=== PATIENT | male | born 1955 | race Hispanic/Latino ===

== ENCOUNTER 2016-12-15 12:08 | Emergency (ER) | payer OTHER ==
[2016-12-15 12:26] VITALS: BP 170/90; PULSE 94; RESP 18; TEMP 98.9; O2SAT 98
--- NOTE | 2016-12-15 13:51 | C.PDOC ---
History Of Present Illness 61 yr old male presents to the ER requesting detox from heroin. Patient reports he uses 5-10 bags a day and occasionally drink. Patient reports last use for both was earlier this morning. Patient denies fever, chest pain, SOB, nausea, vomiting, abdominal pain, weakness or numbness. Denies suicidal ideation or homicidal ideation. Time Seen by Provider: 12/15/16 13:07 Chief Complaint (Nursing): Substance Abuse History Per: Patient History/Exam Limitations: no limitations Onset/Duration Of Symptoms: Days Current Symptoms Are (Timing): Still Present Modifying Factor(s): Alcohol Past Medical History Reviewed: Historical Data, Nursing Documentation, Vital Signs Vital Signs: Last Vital Signs Temp 98.9 F 12/15/16 12:24 Pulse 94 H 12/15/16 12:24 Resp 18 12/15/16 12:24 BP 170/90 H 12/15/16 12:24 Pulse Ox 98 12/15/16 13:53 - Medical History PMH: Emphysema, HTN, Osteoporosis Family History: States: No Known Family Hx - Social History Hx Alcohol Use: Yes Hx Substance Use: Yes - Immunization History Hx Tetanus Toxoid Vaccination: No Hx Influenza Vaccination: No Hx Pneumococcal Vaccination: No Review Of Systems Except As Marked, All Systems Reviewed And Found Negative. Constitutional: Negative for: Fever Cardiovascular: Negative for: Chest Pain Respiratory: Negative for: Shortness of Breath Gastrointestinal: Negative for: Nausea, Vomiting, Abdominal Pain Neurological: Negative for: Weakness, Numbness Psych: Negative for: Suicidal ideation Physical Exam - Physical Exam Appears: Non-toxic, No Acute Distress Skin: Warm, Dry, No Rash Head: Atraumatic, Normacephalic Oral Mucosa: Moist Chest: Symmetrical, No Tenderness Cardiovascular: Rhythm Regular, No Murmur Respiratory: Normal Breath Sounds, No Rales, No Rhonchi, No Stridor, No Wheezing Extremity: Normal ROM, No Swelling Neurological/Psych: Oriented x3, Normal Speech, Normal Motor ED Course And Treatment O2 Sat by Pulse Oximetry: 98 (RA) Pulse Ox Interpretation: Normal Progress Note: Patient was informed there are no detox beds available at the moment. Patient was seen by crisis pressure steamer tender. Disposition - Disposition Referrals: [facility] [Outside] [facility] [Outside] Disposition: HOME/ ROUTINE Disposition Time: 13:10 Condition: GOOD Additional Instructions: Thank you for letting us take care of you today. Your provider was Dr. Thompson. The emergency medical care you received today was directed at your acute symptoms. If you were prescribed any medication, please fill it and take as directed. It may take several days for your symptoms to resolve. Return to the Emergency Department if your symptoms worsen, do not improve, or if you have any other problems. Please contact your doctor or call one of the physicians/clinics you have been referred to that are listed on the Patient Visit Information form that is included in your discharge packet. Bring any paperwork you were given at discharge with you along with any medications you are taking to your follow up visit. Our treatment cannot replace ongoing medical care by a primary care provider (PCP) outside of the emergency department. Thank you for allowing the [facility] team to be part of your care today. Follow up with the clinic in 2-3 days for outpatient care. Call the hospital for detox availability. Instructions: Narcotic Abuse (ED) Forms: [employer] (Lao) - Clinical Impression Clinical Impression: Drug abuse, Drug dependence - Scribe Statement The provider has reviewed the documentation as recorded by the Jose Pinto Provider Attestation: All medical record entries made by the Jose were at my direction and personally dictated by me. I have reviewed the chart and agree that the record accurately reflects my personal performance of the history, physical exam, medical decision making, and the department course for this patient. I have also personally directed, reviewed, and agree with the discharge instructions and disposition.
== END 2016-12-15 13:52 | disposition home or self-care (01) ==
LOC: C.ER 12:08
DX: F11.20 Opioid dependence, uncomplicated (principal)

== ENCOUNTER 2017-02-13 09:12 | Inpatient (IN) | payer MEDICAID, OTHER ==
[2017-02-13] MEDS ORDERED: Sodium Chloride 0.9% 1,000 ML IV ONE (09:21)
[2017-02-13] MEDS ORDERED: Sodium Chloride 0.9% 1,000 ML ONE (09:57)
--- NOTE | 2017-02-13 10:18 | C.PDOC ---
History Of Present Illness 61 year old male brought to ED by ambulance after being found trembling on the side walk and appearing to be altered/?under influence of drugs. Pt was restrained for being uncooperative and was given Ketamine IM in field. He was agitated and aggressive upon arrival to ED, and was placed on 4 point restraints. Time Seen by Provider: 02/13/17 09:20 Chief Complaint (Nursing): Substance Abuse History Per: Patient History/Exam Limitations: no limitations Onset/Duration Of Symptoms: Unknown Current Symptoms Are (Timing): Still Present Additional History Per: EMS Past Medical History Reviewed: Historical Data, Nursing Documentation, Vital Signs Vital Signs: Last Vital Signs Temp 98.3 F 02/14/17 23:33 Pulse 85 02/14/17 23:33 Resp 18 02/14/17 23:33 BP 131/92 H 02/14/17 23:33 Pulse Ox 98 02/15/17 00:11 - Medical History PMH: Emphysema, HTN, Osteoporosis Family History: States: No Known Family Hx - Social History Hx Alcohol Use: Yes Hx Substance Use: Yes - Immunization History Hx Tetanus Toxoid Vaccination: No Hx Influenza Vaccination: No Hx Pneumococcal Vaccination: No Review Of Systems Review Of Systems: ROS cannot be obtained secondary to pt's inabilty to answer questions. Physical Exam - Physical Exam Appears: Non-toxic, Agitated (aggressive, angry, pt is kicking and trying to hit staff) Skin: Warm, Dry Head: Atraumatic, Normacephalic Eye(s): bilateral: EOMI, Abnormal Pupil (pupils dilated 6-7mm but reactive) Oral Mucosa: Moist Neck: Normal, Normal ROM, No Midline Cervical Tenderness, No Paracervical Tenderness, No Step Off Deformity, Supple Cardiovascular: Rhythm Regular Respiratory: Normal Breath Sounds, No Rales, No Rhonchi, No Wheezing Gastrointestinal/Abdominal: Normal Exam, Bowel Sounds, Soft, No Tenderness Extremity: Normal ROM, No Pedal Edema, No Calf Tenderness Extremity: Bilateral: Atraumatic, Normal Color And Temperature, Normal ROM Pulses: Left Dorsalis Pedis: Normal, Right Dorsalis Pedis: Normal Neurological/Psych: Other (awake, alert, trembling but without tonic clonic activity/seizure, moving all 4 extremities spontaneously) ED Course And Treatment - Laboratory Results Result Diagrams: 02/13/17 10:09 02/13/17 10:09 O2 Sat by Pulse Oximetry: 98 (RA) Pulse Ox Interpretation: Normal - CT Scan/US Head CT Other Rad Studies (CT/US): Read By Radiologist, Radiology Report Reviewed CT/US Interpretation: Accession No. : [id number]. Patient Name / ID : DOV PELLETIER / [id number]. Exam Date : 02/13/2017 10:48:11 ( Approved ). Study Comment : Sex / Age : M / [id number]. Creator : Quentin Medina. Dictator : Epitaxial Reactor Technician : Adult Probation Officer : Malik López MD. Approver2 : Report Date : 10:58:57. My Comment : . PROCEDURE: CT HEAD WITHOUT CONTRAST. HISTORY: ams, agitation. COMPARISON: None available. TECHNIQUE: Axial computed tomography images were obtained through the head/brain without intravenous contrast. Radiation dose: Total exam DLP = 950.56 mGy-cm. This CT exam was performed using one or more of the following dose reduction techniques: Automated exposure control, adjustment of the mA and/or kV according to patient size, and/or use of iterative reconstruction technique. FINDINGS: HEMORRHAGE: No intracranial hemorrhage. BRAIN: Few bilateral basal nuclei chronic appearing lacunar type infarcts. Mild -moderate generalized volume loss. Minor 8 vascular calcifications. VENTRICLES: No obstructive hydrocephalus. CALVARIUM: No acute calvarial fractures. PARANASAL SINUSES: Minimal mucosal thickening seen within all the paranasal sinuses. MASTOID AIR CELLS: Unremarkable as visualized. No inflammatory changes. OTHER FINDINGS: None. IMPRESSION: No acute intracranial hemorrhage. Few small chronic bilateral basal nuclei lacunar type infarcts. Mild -moderate generalized volume loss. Progress Note: Patient has not has witnessed seizure as per EMS, and no seizures in ED. 911 call was for "seizure", but they did not witness any such event, just patient being angry, agitated and trembling. CT head, Blood work, UA, UDS ordered and reviewed. Patient given IV NS bolus, IM Ativan and IM haldol for agitation. 5:45pm- Spoke with crisis, detox bed currently available. Patient medically cleared. He is resting comfortably and calm now. 6:10pm- Patient accepted for detox admission by Dr. Onofre. Disposition Counseled Patient/Family Regarding: Studies Performed, Diagnosis, Need For Followup - Disposition Disposition: HOME/ ROUTINE Disposition Time: 17:30 Condition: STABLE - Clinical Impression Clinical Impression: Substance abuse, Agitation - Scribe Statement The provider has reviewed the documentation as recorded by the Scribe Addie Atwood All medical record entries made by the Adelaideibe were at my direction and personally dictated by me. I have reviewed the chart and agree that the record accurately reflects my personal performance of the history, physical exam, medical decision making, and the department course for this patient. I have also personally directed, reviewed, and agree with the discharge instructions and disposition. Decision To Admit - Pt Status Changed To: Hospital Disposition Of: Inpatient - Admit Certification Admit to Inpatient:: After my assessment, the patient will require hospitalization for at least two midnights. This is because of the severity of symptoms shown, intensity of services needed, and/or the medical risk in this patient being treated as an outpatient. - InPatient: Physician Admission Certification: I certify that this patient requires 2 or more midnights of care for the following reason:: see notes - . Bed Request Type: Detox Admitting Physician: Amairani Onofre Patient Diagnosis: Substance abuse, Agitation
[2017-02-13 10:19] LABS: BASO % 0.5 % (0.0-2.0); EOS % 0.4 % (0.0-4.0); HEMATOCRIT 37.1 % (35.0-51.0); LYMPH # 0.6 K/uL (1.0-4.3); LYMPH % 7.6 % (20.0-40.0); MEAN CORPUSCULAR HEMOGLOBIN 33.7 pg (27.0-31.0); MEAN CORPUSCULAR HGB CONC 33.7 g/dL (33.0-37.0); MONO # 0.4 K/uL (0.0-0.8); MONO % 5.6 % (0.0-10.0); PLATELET COUNT 228 K/uL (130-400); RED CELL DISTRIBUTION WIDTH 13.7 % (11.5-14.5); WHITE BLOOD COUNT 7.5 K/uL (4.8-10.8)
[2017-02-13 10:26] LABS: CHLORIDE 99 mmol/L (98-107); POTASSIUM 3.7 mmol/L (3.6-5.2); SODIUM 134 mmol/L (132-148)
[2017-02-13 10:28] LABS: AST/SGOT 36 U/L (17-59); BILIRUBIN,TOTAL 0.6 mg/dL (0.2-1.3); CARBON DIOXIDE 26 mmol/L (22-30); GFR AFRICAN-AMERICAN > 60
[2017-02-13 10:29] LABS: ALB/GLOB RATIO 1.8 (1.0-2.1); ALKALINE PHOSPHATASE 47 U/L (38-126); ALT/SGPT 41 U/L (21-72); BLOOD UREA NITROGEN 14 mg/dL (9-20); GLUCOSE,RANDOM 151 mg/dL (75-110)
[2017-02-13 10:30] LABS: ALCOHOL SERUM < 10 mg/dl (0-10)
[2017-02-13 10:43] LABS: RBC URINE 4 /hpf (0-3); URINE BILIRUBIN NEGATIVE (NEGATIVE); URINE BLOOD NEGATIVE (NEGATIVE); URINE COLOR Yellow (YELLOW); URINE GLUCOSE (UA) NORMAL (Normal); URINE KETONE NEGATIVE (NEGATIVE); URINE LEUKOCYTE ESTERASE NEG Leu/uL (Negative); URINE PROTEIN NEGATIVE (NEGATIVE); WBC URINE 1 /hpf (0-5)
[2017-02-13 11:09] LABS: NEUTROPHIL 86 % (50-75); TOTAL CELLS COUNTED 100
--- NOTE | 2017-02-13 11:17 | CT ---
PROCEDURE: CT HEAD WITHOUT CONTRAST. HISTORY: ams, agitation COMPARISON: None available. TECHNIQUE: Axial computed tomography images were obtained through the head/brain without intravenous contrast. Radiation dose: Total exam DLP = 950.56 mGy-cm. This CT exam was performed using one or more of the following dose reduction techniques: Automated exposure control, adjustment of the mA and/or kV according to patient size, and/or use of iterative reconstruction technique. FINDINGS: HEMORRHAGE: No intracranial hemorrhage. BRAIN: Few bilateral basal nuclei chronic appearing lacunar type infarcts Mild -moderate generalized volume loss. Minor 8 vascular calcifications VENTRICLES: No obstructive hydrocephalus. CALVARIUM: No acute calvarial fractures. PARANASAL SINUSES: Minimal mucosal thickening seen within all the paranasal sinuses. MASTOID AIR CELLS: Unremarkable as visualized. No inflammatory changes. OTHER FINDINGS: None. IMPRESSION: No acute intracranial hemorrhage. Few small chronic bilateral basal nuclei lacunar type infarcts. Mild -moderate generalized volume loss.
--- NOTE | 2017-02-13 21:36 | PCM.BM ---
<Fiordaliza Palomo - Last Filed: 02/13/17 21:34> Treatment Plan Problems - Problems identified on initial assessmt Potential for opioid withdrawal Date Initiated: 02/13/17 Time Initiated: 21:35 Assessment reference: NA Status: Active Priority: 1 Treatment assets and liabiliti Patient Assests: ADL independent, negotiates basic needs, cognitively intact Patient Liabilities: poor support system, substance abuse, other (homelessness) - Milieu Protocol Maintain good personal hygiene: daily Encourage regular showers, daily Remind patient to perform daily oral care, daily Assist patient to perform ADL's Conduct patient checks and document Observation sheet: Q15 minutes Maintain personal safety: every shift Educate patient to report safety concerns to staff, every shift Monitor environment for contraband/sharps Medication safety: Monitor for expected outcome, potential side effects: every shift, Assess barriers to learning: every shift, Assess readiness for medication education: every shift <Martita Amos - Last Filed: 02/15/17 12:46> Family Contact Family involvement: Famliy/SO not involved Family contact: Patient declines to allow family contact at present - Goals for Treatment Patient goals for treatment: Complete detox and apply to [facility]. Discharge/Continuing Care - Education Needs Education Needs: Patient Medication, Patient Diagnosis/Disease Process, Patient Coping Skills, Patient Anger Management skills, Patient Placement options, Patient Community resources - Discharge Discharge Criteria: Ability to care for self, No longer exhibiting s/s of withdrawal, Reduction of target symptoms Discharge to:: Substance Abuse Rehab - Treatment Team Participation Patient/Family/SO Statement: 02/15/17 12:47 "I'm homeless so I need some place to go. I went [facility] the [facility] in the city--I'd like to try them again..." Discussed with Family/SO: No Was Patient/Family/SO present at Treatment Team Meeting: Yes <Nomi Mcgarry - Last Filed: 02/15/17 21:53> - Diagnosis (1) Opioid use disorder, severe, dependence Status: Acute Interventions: 02/15/17 21:53 * Assess 7x/week regarding severity of withdrawal * Educate regarding risks, benefits, side effects and alternatives of medications * Use Motivational Interviewing for abstinence * Use CBT for relapse prevention * Medication management for withdrawal symptoms * Encourage medication assisted treatment *
[2017-02-14] MEDS ORDERED: Buprenorphine Hydrochloride 2 mg SL ONE ×3 (09:30→13:45)
[2017-02-14] MEDS: Multiple Vitamins Tab PO SCH (11:14)
[2017-02-14] MEDS: Bacitracin 500 Units/gm Oint Foilpak UD TOP SCH (11:14)
--- NOTE | 2017-02-14 15:41 | PCM.PSYCH ---
Initial Psychiatric Evaluation - Initial Psychiatric Evaluation Type of Admission: Voluntary Legal Status: Capacity Chief Complaint (in patient's own words): I have etoh and heroin withdrawal symptoms. History of Present Illness and Precipitating Events: Patient is a 61 year old male was admitted to detox unit for heroin and etoh detox. Patient was brought in by EMS after he was found lying on the sidewalk shaking and appearing to have seizures. Patient was not responding to verbal stimuli. The patient stated that he used 6 bags of Heroin this morning intranasally. He reported that he drinks 4 -6 cans of beer with 2 shot of vodka. His last drink was yesterday. He stated that he had a blackout and "passed out." Patient states that he has been using Heroin since the age of 16. Patient states that he has a history of withdrawals and experiences hot and cold tremors along wit tremors and diarrhea. Currently he had multiple bouts of diarrhea and he soiled his clothes including his linen. Patient indicates that he was in Detox at [facility] in 2013 and was also in detox with [facility] in 2016. Patient stated that he relapsed within a week of attending both treatment centers and has had no periods of sobriety. He reported that he 5-6 cigarette daily. Patient denies any legal issues and is not presently employed. Patient denies any hx of mental illness or substance abuse in the family. Patient also denies any psychiatric history and denies any suicidal ideation or any homicidal ideation. The patient also denies any A/V hallucinations. Social History: Homeless, unemployed, Patient stated that he was residing at the [facility] but indicates that he is no longer a resident there. Patient did indicate that he used to work at an [employer] shop ([employer] ) and is originally from [place]. Patient indicates that his family is not involved with him and claims to have a sister residing in [facility]. Medical History: Patient indicates that he has hypertension and COPD but does not followup with a primary doctor and is not on any prescription medication. Current Medications: Active Medications Generic Name Dose Route Start Last Admin Trade Name Freq PRN Reason Stop Dose Admin Bacitracin 1 ea 02/14/17 10:00 02/14/17 11:14 Bacitracin TOP 02/17/17 10:01 1 ea DAILY ABIGAIL Administration Clonidine HCl 0.1 mg 02/13/17 19:18 Catapres PO Q8 PRN COWS Score More or Equal to 5 Dicyclomine HCl 10 mg 02/13/17 19:22 Bentyl PO QID PRN stomach cramps Folic Acid 1 mg 02/14/17 10:00 02/14/17 11:14 Folic Acid PO 1 mg DAILY ABIGAIL Administration Ibuprofen 400 mg 02/13/17 19:22 Motrin Tab PO Q6H PRN Pain, moderate (4-7) Loperamide HCl 2 mg 02/13/17 19:18 02/14/17 13:32 Imodium PO 2 mg Q8 PRN Administration Diarrhea Lorazepam 2 mg 02/13/17 19:30 02/14/17 11:20 Ativan PO 02/17/17 19:29 2 mg Q4H ABIGAIL Administration Taper Multivitamins 1 tab 02/14/17 10:00 02/14/17 11:14 Hexavitamin PO 1 tab DAILY ABIGAIL Administration Ondansetron HCl 4 mg 02/13/17 19:18 Zofran Tab PO Q8 PRN Nausea/Vomiting Thiamine HCl 100 mg 02/14/17 10:00 02/14/17 11:14 Vitamin B1 Tab PO 100 mg DAILY ABIGAIL Administration Trazodone HCl 50 mg 02/13/17 19:18 Desyrel PO HS PRN Insomnia Past Psychiatric History - Past Psychiatric History Prior Psychiatric Treatment: Multiple detox in past. Please see HPI At [facility]: [facility] Nature of Treatment: detox History of Abuse: denied History of ETOH/Drug Use: Please see HPI History of Family Illness: denied Pertinent Medical Hx (Current Medical&Sleep Prob, Allergies): Allergies Allergy/AdvReac Type Severity Reaction Status Date / Time No Known Allergies Allergy Verified 02/13/17 09:49 No Known Home Med 12/15/16 COPD AND HTN Review of Systems - Review of Systems All systems: reviewed and no additional remarkable complaints except Review of Systems: Has body aches, diarrhea, nasal congestion, abrasion of Right conde, and both arm , yawning, goose bump, flushing of skin - Constitutional Constitutional: Chills, Sweats, Malaise - EENT Eyes: Itchy Eyes, Pain Nose/Mouth/Throat: Nasal Congestion Mental Status Examination - Personal Presentation Personal Presentation: Looks stated age, Dressed appropriate to season Additional comments: He appeared disheveled, cac5-6 cigarette cachectic, drowsy, yawning, - Affect Affect: Constricted - Motor Activity Motor Activity: Psychomotor Retardation - Reliability in Providing Information Reliability in Providing Information: Fair - Speech Speech: Coherent - Formal Thought Process Formal Thought Process: No Impairment - Hallucinations/Delusions Delusions: Other (denied) - Obsessions/Compulsions Obsessions: No Compulsions: No - Cognitive Functions Orientation: Person, Place, Situation Sensorium: Drowsy Attention/Concentration: Attentive Abstract Thinking: [place] Judgement: Intact, as evidence by: Good judgement, Intact, as evidence by: Insight regarding need for hospitalization Memory: Recent intact, as evidence by: Ability to recall events of the day - Risk Risk: Withdrawal - Strength & Assets Inventory Strength & Assets Inventory: Cooperative - Limitations Limitations: Other (chronic drugs and etoh use problem) DSM 5 DX - DSM 5 DSM 5 Diagnosis: Opioid use d/o, dependence, severe, with withdrawal symptoms Alcohol use disorder with alcohol, severe, dependence, with withdrawal symptoms , - Recommended/Plan of Treatment Treatment Recommendations and Plan of Treatment: labs reviewed ativan taper for etoh addiction Subutex taper for opioid addiction Gabapentin for augmentation Vitamins, thiamine and Folic acid Monitor vitals Attend groups and activities NC for abstinence and CBT for relapse prevention Support and psychoeducation Consider and encourage MAT Continue Bacitracin for skin abrasions. Continue PRN meds for diarrhea, HTN, anxiety. Time Spend 35 minutes Projected ELOS: 5 days Prognosis: good with medication compliance Discharge Plan and Discharge Criteria: Recommend inpatient rehab for opioid and etoh use d/o AA meeting after discharge Pt will be d/c after stabilization on meds - Smoking Cessation Smoking Cessation Initiated: No
[2017-02-15] MEDS: Buprenorphine Hydrochloride 2 mg SL SCH (10:07)
[2017-02-15] MEDS: Multiple Vitamins Tab PO SCH (10:07)
[2017-02-15] MEDS: Bacitracin 500 Units/gm Oint Foilpak UD TOP SCH (10:08)
--- NOTE | 2017-02-15 12:52 | CARD ---
APPROVED REPORT EKG Measurement Heart [id number] <Conclusion> Sinus tachycardia Right atrial enlargement Left axis deviation Pulmonary disease pattern Abnormal ECG
--- NOTE | 2017-02-15 13:37 | PCM.PYCHPN ---
Psychiatric Progress Note - Psychiatric Progress Note Patient seen today, length of contact: 7 min Patient Chief Complaint: "OK I think" Problems Identified/Issues Discussed: The pt is seen, chart reviewed, case discussed with staff. The pt is compliant with medications and reports no side-effects. Symptoms are improving but needs more time to stabilize. After care discussed, support and psychoeducation given. Medication Change: Yes (detox changes daily) Medical Record Reviewed: Yes Mental Status Examination - Cognitive Function Orientation: Person, Place, Situation Memory: Intact Attention: WNL Concentration: WNL Association: WNL Fund of Knowledge: WNL - Mood Mood: Anxious - Affect Affect: Constricted - Speech Speech: Appropriate - Formal Thought Process Formal Thought Process: No Impairment - Suicidal Ideation Suicidal Ideation: No - Homicidal Ideation Homicidal Ideation: No Goal/Treatment Plan - Goal/Treatment Plan Need for Continued Stay: Discharge may exacerbated symptoms, Severe functional impairment Progress Toward Problem(s) and Goals/Treatment Plan: Continue medications Support and psychoeducation daily Attend groups and activities daily After care planning by counselors
[2017-02-15] MEDS ORDERED: Buprenorphine Hydrochloride 2 mg SL ONE (14:33)
[2017-02-16] MEDS: Buprenorphine Hydrochloride 2 mg SL SCH (09:14)
[2017-02-16] MEDS: Bacitracin 500 Units/gm Oint Foilpak UD TOP SCH (09:14)
[2017-02-16] MEDS: Multiple Vitamins Tab PO SCH (09:14)
--- NOTE | 2017-02-16 14:24 | PCM.PYCHPN ---
Psychiatric Progress Note - Psychiatric Progress Note Patient seen today, length of contact: 17 min Patient Chief Complaint: "I feel a little better" Problems Identified/Issues Discussed: The pt is seen, chart reviewed, case discussed with staff. The pt is compliant with medications and reports no side-effects. Symptoms are improving but needs more time to stabilize. After care discussed, support and psychoeducation given back hurts him slightly today. Medication Change: Yes Medical Record Reviewed: Yes Mental Status Examination - Cognitive Function Orientation: Person, Place, Situation, Time Memory: Intact Attention: WNL Concentration: WNL Association: WNL Fund of Knowledge: WNL - Mood Mood: Anxious - Affect Affect: Constricted - Speech Speech: Appropriate - Formal Thought Process Formal Thought Process: No Impairment - Suicidal Ideation Suicidal Ideation: No - Homicidal Ideation Homicidal Ideation: No Goal/Treatment Plan - Goal/Treatment Plan Need for Continued Stay: Discharge may exacerbated symptoms, Severe functional impairment Progress Toward Problem(s) and Goals/Treatment Plan: Continue medications Support and psychoeducation daily Attend groups and activities daily After care planning by counselors at [facility] where he was 25 years ago and remained sober 10 years after Estimated Date of D/C: 02/18/17
--- NOTE | 2017-02-16 17:23 | RAD ---
HISTORY: Clearance for rehab COMPARISON: None available. TECHNIQUE: Chest PA and lateral FINDINGS: LUNGS: Hyperinflation may be seen in the setting of COPD. No focal consolidation. Please note that chest x-ray has limited sensitivity for the detection of pulmonary masses. PLEURA: No significant pleural effusion identified. No definite pneumothorax . CARDIOVASCULAR: The cardiomediastinal silhouette appears within normal limits of size. OSSEOUS STRUCTURES: No acute osseous abnormality identified. VISUALIZED UPPER ABDOMEN: Unremarkable. OTHER FINDINGS: None. IMPRESSION: Hyperinflation may be seen in the setting of COPD.
[2017-02-16] MEDS ORDERED: Buprenorphine Hydrochloride 2 mg SL ONE (18:00)
[2017-02-17] MEDS: Multiple Vitamins Tab PO SCH (09:09)
[2017-02-17] MEDS: Bacitracin 500 Units/gm Oint Foilpak UD TOP SCH (09:10)
[2017-02-17] MEDS: Buprenorphine Hydrochloride 2 mg SL SCH (09:11)
--- NOTE | 2017-02-17 14:21 | PCM.PYCHPN ---
Psychiatric Progress Note - Psychiatric Progress Note Patient seen today, length of contact: 16 min Patient Chief Complaint: "I feel okay" Problems Identified/Issues Discussed: The pt is seen, chart reviewed, case discussed with staff. Support given, CBT and GA used briefly No new symptoms reported, improving slowly and needs more time No SEs from medications and medication changes, risks discussed. After care discussed potentially at [facility] Medication Change: Yes (subutex 6mg+2mg) Medical Record Reviewed: Yes Mental Status Examination - Cognitive Function Orientation: Person, Place, Situation, Time Memory: Intact Attention: WNL Concentration: WNL Association: WN Fund of Knowledge: WN - Mood Mood: Depressed, Anxious - Affect Affect: Constricted - Speech Speech: Appropriate - Formal Thought Process Formal Thought Process: No Impairment - Suicidal Ideation Suicidal Ideation: No - Homicidal Ideation Homicidal Ideation: No Goal/Treatment Plan - Goal/Treatment Plan Need for Continued Stay: Discharge may exacerbated symptoms, Severe functional impairment Progress Toward Problem(s) and Goals/Treatment Plan: Continue medications Support and psychoeducation daily Attend groups and activities daily After care planning by MANUEL hopefully at [facility] Estimated Date of D/C: 02/18/17
[2017-02-17] MEDS ORDERED: Buprenorphine Hydrochloride 2 mg SL ONE (17:00)
[2017-02-18] MEDS: Multiple Vitamins Tab PO SCH (09:11)
[2017-02-18] MEDS: Buprenorphine Hydrochloride 2 mg SL SCH (09:12)
--- NOTE | 2017-02-18 13:50 | PCM.PYCHPN ---
Psychiatric Progress Note - Psychiatric Progress Note Patient seen today, length of contact: 17 min Patient Chief Complaint: "I feel so-so" Problems Identified/Issues Discussed: The pt is seen, chart reviewed, case discussed with staff. Support given, CBT and SD used briefly No new symptoms reported, improving slowly and needs more time No SEs from medications, risks discussed. After care discussed potentially at [facility] only slept 4-5 hours last night Medication Change: Yes (subutex 2mg+2mg) Medical Record Reviewed: Yes Mental Status Examination - Cognitive Function Orientation: Person, Place, Situation, Time Memory: Intact Attention: WNL Concentration: WNL Association: WN Fund of Knowledge: WNL - Mood Mood: Depressed - Affect Affect: Constricted - Speech Speech: Appropriate - Formal Thought Process Formal Thought Process: No Impairment - Suicidal Ideation Suicidal Ideation: No - Homicidal Ideation Homicidal Ideation: No Goal/Treatment Plan - Goal/Treatment Plan Need for Continued Stay: Discharge may exacerbated symptoms, Severe functional impairment Progress Toward Problem(s) and Goals/Treatment Plan: Continue medications Support and psychoeducation daily Attend groups and activities daily After care planning by MANUEL hopefully discharge tomorrow Estimated Date of D/C: 02/19/17
[2017-02-18] MEDS ORDERED: Buprenorphine Hydrochloride 2 mg SL ONE (18:00)
--- NOTE | 2017-02-19 08:44 | PCM.PYCHDC ---
Mental Status Examination - Mental Status Examination Orientation: Person Memory: Intact Mood: Neutral Affect: Broad Speech: Appropriate Attention: WNL Concentration: WNL Association: WNL Fund of Knowledge: WNL Formal Thought Process: No Impairment Suicidal Ideation: No Current Homicidal Ideation?: No Discharge Summary - Discharge Note Reason for Hospitalization: heroin detox alcohol detox Psychiatric History (includes Medical, Family, Personal Hx): Patient denies any hx of mental illness or substance abuse in the family. Consultations:: List each consultation separately and include: 1. Reason for request. 2. Findings. 3. Follow-up Summary of Hospital Course include:: 1. Description of specific treatment plan utilized for patients during their course of treatmen. 2. Summarize the time- course for resolution of acute symptoms and/or regressed behaviors. 3. Describe issues identified and worked on during hospitalization. 4. Describe medication utilized. 5. Describe medical problems identified and treated. 6. Reassessment of suicide risk Summary of Hospital Course: the pt. is seen, chart reviewed and case discussed On admission: He is a 61 year old male, single no children. Patient is unemployed and homeless. He reported that he drinks 4 -6 cans of beer with 2 shot of vodka. His last drink was day prior to admission Patient states that he has been using Heroin since the age of 16. Last used 6 bags of Heroin day of admission. He has previously been treated at [facility] for detox in 2014 and at [email or web address] for detox in 2016 Past psych history: denies Medical history: Hypertension and COPD Hospital course: subutex taper The pt was admitted and started on treatment with psychotherapy, support, psychoeducation and medications. DE and CBT used. The pt attended groups and activities, as well as milieu therapy. All the risks and benefits of medications are discussed and the patient understood and agreed. The pt improved with the treatments provided. After care discussed with the patient and he will first go to [facility] and then eventually [email or web address] in . he did not want to go directly as he has to get his check and pay some people. He is not happythat takes $ from him. - Final Diagnosis (DSM 5) Condition upon Discharge: STABLE DSM 5: Opioid use d/o, dependence, severe, with withdrawal symptoms Alcohol use disorder with alcohol, severe, dependence, with withdrawal symptoms , Disposition: HOME/ ROUTINE Follow-up Treatment Plan: Continue below medications after discharge. Follow after care plan as discussed. Home first ([facility] and then [facility]) Use relapse prevention skills Return to ER or call 911 if suicidal, homicidal or symptoms relapse. Stay away from stress, alcohol and drugs. See primary doctor regularly and get labs. Patient stated he was going home first to attend to personal matters Patient was advised on necessity for rehab and understood Patient was given a script for trazadone and for vitamins. Prescriptions/Medication Reconciliation: Multivitamins [Hexavitamin] 1 tab PO DAILY #30 tab traZODone [Desyrel] 100 mg PO HS PRN #30 tab PRN Reason: Insomnia - Smoking Cessation Smoking Cessation Medication prescribed: No - Antipsychotic Medications Pt discharged on 2 or more routine antipsychotic medications: No
[2017-02-19] MEDS ORDERED: Buprenorphine Hydrochloride 2 mg SL ONE (09:00)
[2017-02-19] MEDS: Multiple Vitamins Tab PO SCH (09:09)
[2017-02-19 09:34] VITALS: BP 140/83; PULSE 77; RESP 18; TEMP 98.3; O2SAT 98
== END 2017-02-19 10:30 | disposition home or self-care (01) | DRG 744 ==
LOC: C.ER 09:12 → C.7D 18:02
PROVIDERS: ADMIT Psychiatry & Neurology Psychiatry; ATTEND Psychiatry & Neurology Psychiatry
PROC: HZ56ZZZ Individual Psychotherapy for Substance Abuse Treatment, Psychoeducation (ICD-10-PCS; principal; 2017-02-13)
PROC: HZ2ZZZZ Detoxification Services for Substance Abuse Treatment (ICD-10-PCS; 2017-02-13)
PROC: HZ59ZZZ Individual Psychotherapy for Substance Abuse Treatment, Supportive (ICD-10-PCS; 2017-02-13)
PROC: HZ42ZZZ Group Counseling for Substance Abuse Treatment, Cognitive-Behavioral (ICD-10-PCS; 2017-02-13)
DX: F11.23 Opioid dependence with withdrawal (principal); R56.9 Unspecified convulsions; J44.9 Chronic obstructive pulmonary disease, unspecified; I10 Essential (primary) hypertension; F10.230 Alcohol dependence with withdrawal, uncomplicated; M81.0 Age-related osteoporosis without current pathological fracture; Z59.0 Homelessness; Z78.1 Physical restraint status; F17.210 Nicotine dependence, cigarettes, uncomplicated; R19.7 Diarrhea, unspecified

== ENCOUNTER 2017-10-22 16:30 | Emergency (ER) | payer MEDICAID, OTHER ==
--- NOTE | 2017-10-22 17:48 | RAD ---
PROCEDURE: Radiographs of the Lumbar Spine. HISTORY: fall yesterday while being intoxicated COMPARISON: No prior. FINDINGS: BONES: There is grade 1 anterolisthesis of L5 with respect to L4 and S1. Vertebral body heights are maintained. DISC SPACES: Disc space heights are preserved. OTHER FINDINGS: Atherosclerotic calcifications noted of the aorta. IMPRESSION: Grade 1 anterolisthesis of L5 as above.
--- NOTE | 2017-10-22 18:16 | C.PDOC ---
History Of Present Illness <Supriya Pablo - Last Filed: 10/22/17 18:42> <Clayton Rivera - Last Filed: 10/22/17 20:27> 62-year-old male, presents to the emergency department with complaints of public intoxication. Patient was found drunk and intoxicated, complaining of low back pain, states he fell yesterday while he was drunk, and admits to drinking everyday. (Supriya Pablo) History Per: Patient History/Exam Limitations: no limitations Current Symptoms Are (Timing): Still Present <Supriya Pablo - Last Filed: 10/22/17 18:42> <Clayton Rivera - Last Filed: 10/22/17 20:27> Time Seen by Provider: 10/22/17 16:53 Chief Complaint (Nursing): Substance Abuse Past Medical History Reviewed: Historical Data, Nursing Documentation, Vital Signs - Medical History PMH: Emphysema, HTN, Osteoporosis Family History: States: Unknown Family Hx - Social History Hx Alcohol Use: Yes Hx Substance Use: Yes - Immunization History Hx Tetanus Toxoid Vaccination: No Hx Influenza Vaccination: No Hx Pneumococcal Vaccination: No <Supriya Pablo - Last Filed: 10/22/17 18:42> Vital Signs: Last Vital Signs Temp 98.6 F 10/22/17 19:00 Pulse 75 10/22/17 19:00 Resp 16 10/22/17 19:00 BP 160/93 H 10/22/17 19:00 Pulse Ox 95 10/22/17 19:00 - [facility] Procedures DETOXIFICATION SERVICES FOR SUBSTANCE ABUSE TREATMENT (02/13/17) GROUP ASSISTANT PROFESSOR OF ART FOR SUBSTANCE ABUSE, COGNITIVE BEHAVIORAL (02/13/17) INDIV PSYCHOTHERAPY FOR SUBSTANCE ABUSE TREATMENT, SUPPORT (02/13/17) INDIV PSYCHOTHERAPY FOR SUBSTANCE ABUSE, PSYCHOEDUCATION (02/13/17) Review Of Systems Constitutional: Negative for: Fever, Chills Cardiovascular: Negative for: Chest Pain, Palpitations Respiratory: Negative for: Shortness of Breath Gastrointestinal: Negative for: Nausea, Vomiting Musculoskeletal: Positive for: Back Pain Neurological: Negative for: Headache, Dizziness <Supriya Pablo - Last Filed: 10/22/17 18:42> Physical Exam - Physical Exam Appears: Non-toxic, No Acute Distress, Other (intoxicated. ETOH on breath) Skin: Warm, Dry, No Rash Head: Other (Bruise to left side of face) Eye(s): bilateral: Normal Inspection Nose: Normal Oral Mucosa: Moist Lips: Normal Appearing Neck: Normal ROM Cardiovascular: Rhythm Regular, No Murmur Respiratory: Normal Breath Sounds, No Accessory Muscle Use Gastrointestinal/Abdominal: Soft, No Tenderness Back: Paraspinal Tenderness (diffuse) Extremity: Normal ROM, No Deformity, No Swelling Neurological/Psych: Other (Awake and alert) <Supriya Pablo - Last Filed: 10/22/17 18:42> ED Course And Treatment O2 Sat by Pulse Oximetry: 95 (RA) Pulse Ox Interpretation: Normal - Other Rad XR spine X-Ray: Viewed By Me, Read By Radiologist Interpretation: Accession No. : [id number]. Patient Name / ID : DOV PELLETIER / [id number]. Exam Date : 10/22/2017 17:20:01 ( Approved ). Study Comment : Sex / Age : M / [id number]. Creator : Cole Atwood MD. Dictator : Cole Atwood MD. Lockstitch Tunnel Elastic Operator : Lead Housekeeper : Cole Atwood MD. Approver2 : Report Date : 10/22/2017 17:47:30. My Comment : . PROCEDURE: Radiographs of the Lumbar Spine. HISTORY: fall yesterday while being intoxicated. COMPARISON: No prior. FINDINGS: BONES: There is grade 1 anterolisthesis of L5 with respect to L4 and S1. Vertebral body heights are maintained. DISC SPACES: Disc space heights are preserved. OTHER FINDINGS: Atherosclerotic calcifications noted of the aorta. IMPRESSION: Grade 1 anterolisthesis of L5 as above. Progress Note: LS spine xray and Head CT were ordered. Patient is being observed in ED for sobriety. At 7 pm case was signed out to . <Supriya Pablo - Last Filed: 10/22/17 18:42> Disposition - Disposition Disposition Time: 18:43 <Supriya Pablo - Last Filed: 10/22/17 18:42> Counseled Patient/Family Regarding: Diagnosis - Disposition Disposition Time: 20:27 - POA Present On Arrival: None <Clayton Rivera - Last Filed: 10/22/17 20:27> - Disposition Referrals: [facility] [Outside] Condition: STABLE Forms: [facility] (Citizen Of [place]) - Clinical Impression Clinical Impression: Alcohol intoxication, Status post fall - Scribe Statement The provider has reviewed the documentation as recorded by the Scribe ([place]) <Supriya Pablo - Last Filed: 10/22/17 18:42> <Clayton Rivera - Last Filed: 10/22/17 20:27> - Scribe Statement All medical record entries made by the Scribe were at my direction and personally dictated by me. I have reviewed the chart and agree that the record accurately reflects my personal performance of the history, physical exam, medical decision making, and the department course for this patient. I have also personally directed, reviewed, and agree with the discharge instructions and disposition. (Supriya Pablo) Physician Patient Turnover Patient Signed Over To: Clayton Rivera Handoff Comments: pending head CT, re-eval for sobriety and dispo <Supriya Pablo - Last Filed: 10/22/17 18:42>
--- NOTE | 2017-10-22 19:07 | CT ---
PROCEDURE: CT HEAD WITHOUT CONTRAST HISTORY: etoh, fall COMPARISON: CT head 02/13/2017 TECHNIQUE: Axial computed tomography images were obtained through the head/brain without intravenous contrast. Coronal, sagittal, and 3D reconstructions were also acquired. Radiation dose: Total exam DLP = 1003 mGy-cm. FINDINGS: HEMORRHAGE: No intracranial hemorrhage seen. BRAIN: No intraparenchymal mass identified. There is ventricular and sulcal prominence, consistent with age related volume loss. There is intracranial atherosclerosis. Small lacunar infarcts noted bilateral basal ganglia. VENTRICLES: See above CALVARIUM: Intact PARANASAL SINUSES: Small air-fluid level in the right maxillary sinus. Mild mucosal thickening in the bilateral maxillary sinuses and ethmoid sinuses. Remainder of the visualized paranasal sinuses are clear. MASTOID AIR CELLS: Visualized mastoid air cells are clear. OTHER FINDINGS: None. IMPRESSION: No mass, hemorrhage, or acute infarct identified. Small air-fluid level in the right maxillary sinus. Correlate clinically for acute sinusitis.
[2017-10-22 19:11] VITALS: RESP 16; TEMP 98.6
[2017-10-22 20:57] VITALS: BP 152/90; PULSE 73; O2SAT 96
== END 2017-10-22 20:57 | disposition home or self-care (01) ==
LOC: C.ER 16:30
DX: F10.129 Alcohol abuse with intoxication, unspecified (principal); Y90.9 Presence of alcohol in blood, level not specified; S00.83XA Contusion of other part of head, initial encounter; W19.XXXA Unspecified fall, initial encounter

== ENCOUNTER 2017-10-23 18:21 | Emergency (ER) | payer OTHER ==
[2017-10-23 18:37] VITALS: BP 152/82; PULSE 82; RESP 16; TEMP 98.6; O2SAT 96
--- NOTE | 2017-10-23 18:37 | C.PDOC ---
History Of Present Illness 62 year old male is brought in by EMS for public malingering, alcohol abuse. Patient is referred to the ED by Police Officers for evaluations. Per EMS patient was seen walking without any assistance. Patient drank vodka from a bottle in his pocket while on the ambulance en route to the ED. Patient denies SI/HI< hallucinations, CP, SOB. Time Seen by Provider: 10/23/17 18:35 Chief Complaint (Nursing): Substance Abuse History Per: Patient, EMS History/Exam Limitations: intoxication Onset/Duration Of Symptoms: Hrs Current Symptoms Are (Timing): Still Present Suicide/Self Injury Attempted (Context): None Modifying Factor(s): Alcohol Associated Symptoms: denies: Depression, Suicidal Thoughts, Suicidal Plan Involuntary Hold By: None Recent travel outside of the [place]: No Additional History Per: Patient, EMS Past Medical History Reviewed: Historical Data, Nursing Documentation, Vital Signs Vital Signs: Last Vital Signs Temp 98.6 F 10/23/17 18:33 Pulse 82 10/23/17 18:33 Resp 16 10/23/17 18:33 BP 152/82 H 10/23/17 18:33 Pulse Ox 96 10/23/17 20:33 - Medical History PMH: Emphysema, HTN, Osteoporosis Denies: Diabetes, Hepatitis, HIV, Seizures, Sexually Transmitted Disease Surgical History: No Surg Hx - [facility] Procedures DETOXIFICATION SERVICES FOR SUBSTANCE ABUSE TREATMENT (02/13/17) GROUP RN INTEGRATED FOR SUBSTANCE ABUSE, COGNITIVE BEHAVIORAL (02/13/17) INDIV PSYCHOTHERAPY FOR SUBSTANCE ABUSE TREATMENT, SUPPORT (02/13/17) INDIV PSYCHOTHERAPY FOR SUBSTANCE ABUSE, PSYCHOEDUCATION (02/13/17) Family History: States: Unknown Family Hx - Social History Hx Alcohol Use: Yes Hx Substance Use: Yes - Immunization History Hx Tetanus Toxoid Vaccination: No Hx Influenza Vaccination: No Hx Pneumococcal Vaccination: No Review Of Systems Constitutional: Negative for: Fever, Chills Cardiovascular: Negative for: Chest Pain, Palpitations Respiratory: Negative for: Shortness of Breath Gastrointestinal: Negative for: Nausea, Vomiting Skin: Negative for: Rash Psych: Negative for: Depression, Suicidal ideation Physical Exam - Physical Exam Appears: Non-toxic, Other (chronic homeless, AOB) Skin: Normal Color, Warm, Dry Head: Atraumatic, Normacephalic Eye(s): bilateral: Normal Inspection Oral Mucosa: Moist Neck: Normal ROM, Supple Chest: Symmetrical Cardiovascular: Rhythm Regular Respiratory: Normal Breath Sounds, No Rales, No Rhonchi, No Wheezing Gastrointestinal/Abdominal: Soft, No Tenderness, No Guarding, No Rebound Extremity: Normal ROM, No Tenderness, No Swelling Neurological/Psych: Oriented x3, Normal Speech Gait: Steady ED Course And Treatment O2 Sat by Pulse Oximetry: 96 (ON RA) Pulse Ox Interpretation: Normal Medical Decision Making Medical Decision Making: alcohol abuse, malingering no acute issues no detox available no SI/HI Disposition Doctor Will See Patient In The: Office Counseled Patient/Family Regarding: Studies Performed, Diagnosis - Disposition Referrals: Alcoholics Anonymous [Outside] [facility] [Outside] [facility] [Outside] [facility] [Outside] Disposition: HOME/ ROUTINE Disposition Time: 18:36 Condition: GOOD Additional Instructions: seek nightly intermediate placement Seek AA Seek outpatient Detox programs and call for availabilty @ [facility] Call for availability. Instructions: Alcohol Abuse and Alcoholism (DC) Forms: [facility] ([place]) - Clinical Impression Clinical Impression: Alcohol abuse - Scribe Statement The provider has reviewed the documentation as recorded by the Scribe Timbo Cabrera All medical record entries made by the Scribe were at my direction and personally dictated by me. I have reviewed the chart and agree that the record accurately reflects my personal performance of the history, physical exam, medical decision making, and the department course for this patient. I have also personally directed, reviewed, and agree with the discharge instructions and disposition.
== END 2017-10-23 18:52 | disposition home or self-care (01) ==
LOC: C.ER 18:21
DX: F10.10 Alcohol abuse, uncomplicated (principal); I10 Essential (primary) hypertension

== ENCOUNTER 2017-10-24 14:11 | Inpatient (IN) | payer OTHER ==
[2017-10-24 14:23] VITALS: BMI 20.3
[2017-10-24] MEDS ORDERED: Sodium Chloride 0.9% 1,000 ML IV ONE ×2 (14:28→15:21)
--- NOTE | 2017-10-24 14:40 | C.PDOC ---
History Of Present Illness Patient NANCI for evaluation, was found on the ground in front of a liquor store , difficult to arouse and diaphoretic. BIBA, given IV NS bolus 500ml in the field. History limited due to clinical condition. PMHx of HTN, COPD, osteoporosis, alcohol abuse Time Seen by Provider: 10/24/17 14:20 Chief Complaint (Nursing): Altered Mental Status History Per: EMS History/Exam Limitations: Clinical Condition Onset/Duration Of Symptoms: Unknown Onset Of Symptoms: Cannot Confirm Onset Current Symptoms Are (Timing): Still Present Usual Baseline: Alert Oriented Past Medical History Reviewed: Historical Data, Nursing Documentation, Vital Signs Vital Signs: Last Vital Signs Temp 99.8 F H 10/24/17 14:31 Pulse 78 10/24/17 18:31 Resp 78 H 10/24/17 18:31 BP 154/107 H 10/24/17 18:31 Pulse Ox 100 10/24/17 18:57 - Medical History PMH: Emphysema, HTN, Osteoporosis - [facility] Procedures DETOXIFICATION SERVICES FOR SUBSTANCE ABUSE TREATMENT (02/13/17) GROUP SALESPERSON PETS AND PET SUPPLIES FOR SUBSTANCE ABUSE, COGNITIVE BEHAVIORAL (02/13/17) INDIV PSYCHOTHERAPY FOR SUBSTANCE ABUSE TREATMENT, SUPPORT (02/13/17) INDIV PSYCHOTHERAPY FOR SUBSTANCE ABUSE, PSYCHOEDUCATION (02/13/17) Family History: States: No Known Family Hx - Social History Hx Alcohol Use: Yes Hx Substance Use: Yes - Immunization History Hx Tetanus Toxoid Vaccination: No Hx Influenza Vaccination: No Hx Pneumococcal Vaccination: No Review Of Systems Review Of Systems: ROS cannot be obtained secondary to pt's inabilty to answer questions. Physical Exam - Physical Exam Appears: Unkempt, Chronically Ill, Other (malodorous, chronically ill appearing , cachectic) Skin: Diaphoretic Head: Atraumatic, Normacephalic Eye(s): bilateral: Other (approx 3-4 mm B/L and reactive) Oral Mucosa: Dry Cardiovascular: Rhythm Regular (tachycardic ) Respiratory: Accessory Muscle Use (mild), No Rales, No Rhonchi, Other ( tachypnic ) Gastrointestinal/Abdominal: Normal Exam, Bowel Sounds, Soft, No Tenderness Rectal: Other (patient had large episode of dark tarry stool, no bright red blood noted) Extremity: No Calf Tenderness, Other (RLE - chronic appearing erythema with scattered eschars, B/L legs with feces ) Pulses: Left Dorsalis Pedis: Normal, Right Dorsalis Pedis: Normal Neurological/Psych: Other (arousable to painful stimuli, moving all 4 extremities spontaneously) ED Course And Treatment - Laboratory Results Result Diagrams: 10/24/17 14:55 10/24/17 14:55 ECG: Interpreted By Me, Viewed By Me (sinus tachycardia 109 bpm, normal axis, diffuse ST depressions II, III, aVF, V3-V6) ECG Interpretation: Abnormal O2 Sat by Pulse Oximetry: 100 (ra) Pulse Ox Interpretation: Normal - Other Rad CXR X-Ray: Viewed By Me, Read By Radiologist Interpretation: Accession No. : [id number]. Patient Name / ID : DOV PELLETIER / [id number]. Exam Date : 10/24/2017 14:32:05 ( Approved ). Study Comment : Sex / Age : M / 62Y. Creator : Malik López MD. Dictator : Inpatient Care Manager Rn : Auto Service Station Attendant : Malik López MD. Approver2 : Report Date : 10/24/2017 14:54:58. My Comment : . PROCEDURE: CHEST RADIOGRAPH, 1 VIEW. HISTORY: AMS. COMPARISON: Comparison chest 02/16/2017. FINDINGS: LUNGS: Re- demonstrated are hyperinflation changes both lungs ; rule out underlying COPD or emphysema. . Mild right apical pleural thickening suspected. PLEURA: No pneumothorax or pleural fluid seen. CARDIOVASCULAR: Normal. OSSEOUS STRUCTURES: No significant abnormalities. VISUALIZED UPPER ABDOMEN: Normal. OTHER FINDINGS: None. IMPRESSION: Re- demonstrated are hyperinflation changes both lungs ; rule out underlying COPD or emphysema. - CT Scan/US ct head Other Rad Studies (CT/US): Read By Radiologist, Radiology Report Reviewed CT/US Interpretation: Accession No. : [id number]. Patient Name / ID : DOV PELLETIER / [id number]. Exam Date : 10/24/2017 16:10:16 ( Approved ). Study Comment : Sex / Age : M / 62Y. Creator : Malik López MD. Dictator : Inpatient Care Manager Rn : Auto Service Station Attendant : Malik López MD. Approver2 : Report Date : 10/24/2017 16:23:20. My Comment : . PROCEDURE: CT HEAD WITHOUT CONTRAST. HISTORY: AMS. COMPARISON: Comparison made with CT scan of the brain 10/22/2017. TECHNIQUE: Axial computed tomography images were obtained through the head/brain without intravenous contrast. Radiation dose: Total exam DLP = 1225.38 mGy-cm. This CT exam was performed using one or more of the following dose reduction techniques: Automated exposure control, adjustment of the mA and/or kV according to patient size, and/or use of iterative reconstruction technique. FINDINGS: HEMORRHAGE: No acute parenchymal, subarachnoid or extra-axial satinder hemorrhage. BRAIN: No evidence of large acute infarct. There are a few tiny chronic bilateral basal nuclei lacunar type infarcts. Questionable minimal chronic periventricular white matter ischemic changes. No obvious parenchymal nor extra-axial mass or collection seen on this noncontrast study. . Mild moderate generalized volume loss. VENTRICLES: No obstructive hydrocephalus. CALVARIUM: No acute calvarial fractures. PARANASAL SINUSES: Previously noted small fluid level is obscured by increased mucosal thickening changes. Tiny fluid level left maxillary antrum with mild mucosal thickening in the left maxillary antrum. There has been progressive partial opacification of the ethmoid air complex as well and both chambers of the sphenoid sinus more so on the left side with tiny fluid level as well. Increased mucosal thickening in the frontal sinus. MASTOID AIR CELLS: There is a cerumen ball within the left external auditory canal. OTHER FINDINGS: None. IMPRESSION: No acute intracranial hemorrhage. 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 Suspect minimal chronic periventricular white matter ischemic changes. Mild moderate generalized volume loss. Progressive opacification melendez paranasal sinuses as described. Progress Note: Blood work, EKG, UA, UDS, CT head ordered and reviewed. Patient given IV NS bolus, IV KCL. 4:30pm- Patient's vitals significantly improved, he is resting comfortably. 5:10pm- Spoke with program consultant Dr. Wright, he will come down and evaluate patient for ICU. 5:33pm- Dr. Wright evaluated patient, patient ok for telemetry admission at this time. 6:15pm- Patient c/o mild tremors - IV ativan ordered. Reevaluation Time: 15:30 Reassessment Condition: Improved (Patient awake & alert, able to stand up, asking to go to bathroom.) - Physician Consult Information Physician Contacted: Cherie Atwood Outcome Of Conversation: Discussed patient with medicine crop consultant, he agrees with to his service for dehydration, heat exhaustion, elevated CK, guaiac (+) stool, alcohol and heroin abuse, hypokalemia. Critical Care Time - Critical Care Note Total Time (in mins): 45 Documented critical care: time excludes all time spent performing seperately billable procedures. Medical Decision Making Medical Decision Making: On ED arrival: Eldridge Coma Scale/Score (GCS) from [email or web address] on 10/24/2017 All calculations should be rechecked by clinician prior to use RESULT SUMMARY: 9 points [id number] INPUTS: Best eye response > 2 = To pain (+2) Best verbal response > 2 = Incomprehensible sounds (+2) Best motor response > 5 = Localizes pain (+5) Disposition - Disposition Disposition: HOSPITALIZED Disposition Time: 17:12 Condition: FAIR - Clinical Impression Clinical Impression: Elevated CK, Elevated lactic acid level, Guaiac positive stools, Alcohol intoxication, Heat exhaustion, Hypokalemia, Dehydration Decision To Admit - Pt Status Changed To: Hospital Disposition Of: Inpatient - Admit Certification Admit to Inpatient:: After my assessment, the patient will require hospitalization for at least two midnights. This is because of the severity of symptoms shown, intensity of services needed, and/or the medical risk in this patient being treated as an outpatient. - InPatient: Physician Admission Certification:: see notes - . Bed Request Type: Telemetry Admitting Physician: Cherie Atwood Patient Diagnosis: Elevated CK, Elevated lactic acid level, Guaiac positive stools, Alcohol intoxication, Heat exhaustion, Hypokalemia, Dehydration
--- NOTE | 2017-10-24 14:56 | RAD ---
PROCEDURE: CHEST RADIOGRAPH, 1 VIEW HISTORY: AMS COMPARISON: Comparison chest 02/16/2017 FINDINGS: LUNGS: Re- demonstrated are hyperinflation changes both lungs ; rule out underlying COPD or emphysema. . Mild right apical pleural thickening suspected. PLEURA: No pneumothorax or pleural fluid seen. CARDIOVASCULAR: Normal. OSSEOUS STRUCTURES: No significant abnormalities. VISUALIZED UPPER ABDOMEN: Normal. OTHER FINDINGS: None. IMPRESSION: Re- demonstrated are hyperinflation changes both lungs ; rule out underlying COPD or emphysema.
[2017-10-24 15:02] LABS: ABG ALLEN TEST POS; ARTERIAL BLOOD GAS HCO3 25.4 mmol/L (21-28); ARTERIAL BLOOD GAS PCO2 36 mm/Hg (35-45); ARTERIAL BLOOD GAS PH 7.44 (7.35-7.45); ARTERIAL BLOOD GAS PO2 88 mm/Hg (80-100); ARTERIAL BLOOD GAS TCO2 25.6 mmol/L (22-28)
[2017-10-24 15:05] LABS: BASO % 0.6 % (0.0-2.0); EOS % 0.1 % (0.0-4.0); HEMOGLOBIN 14.5 g/dL (12.0-18.0); LYMPH # 0.6 K/uL (1.0-4.3); LYMPH % 12.2 % (20.0-40.0); MEAN CELL VOLUME 100.7 fL (80.0-94.0); MEAN CORPUSCULAR HEMOGLOBIN 34.8 pg (27.0-31.0); MEAN CORPUSCULAR HGB CONC 34.5 g/dL (33.0-37.0); MEAN PLATELET VOLUME 6.9 fL (7.2-11.7); MONO # 0.4 K/uL (0.0-0.8); MONO % 8.6 % (0.0-10.0); NEUT # 4.1 K/uL (1.8-7.0); NEUT % 78.5 % (50.0-75.0); RBC 4.16 Mil/uL (4.40-5.90); RED CELL DISTRIBUTION WIDTH 13.4 % (11.5-14.5); WHITE BLOOD COUNT 5.2 K/uL (4.8-10.8)
[2017-10-24 15:12] LABS: ACETAMINOPHEN < 10.0 ug/mL (10.0-30.0); SALICYLATE < 1.0 mg/dL 1; SQUAMOUS EPITHIAL < 1 /hpf (0-5); URINE AMORPHOUS SEDIMENT OCC /ul (<OCC); URINE BACTERIA RARE (<OCC); URINE BILIRUBIN NEGATIVE (NEGATIVE); URINE BLOOD 1+ (NEGATIVE); URINE CLARITY Hazy (Clear); URINE COLOR Yellow (YELLOW); URINE GLUCOSE (UA) NORMAL (Normal); URINE LEUKOCYTE ESTERASE NEG Leu/uL (Negative); URINE PROTEIN 1+ mg/dL (NEGATIVE)
[2017-10-24 15:14] LABS: ALBUMIN 4.2 g/dL (3.5-5.0); ALT/SGPT 101 U/L (21-72); AST/SGOT 166 U/L (17-59); BLOOD UREA NITROGEN 13 mg/dL (9-20); CALCIUM 8.6 mg/dl (8.6-10.4); GFR AFRICAN-AMERICAN > 60; GFR NON-AFRICAN AMERICAN > 60
[2017-10-24 15:17] LABS: BARBITURATES, UR NEGATIVE (NEGATIVE); BENZODIAZEPINES, UR NEGATIVE (NEGATIVE); OPIATES, UR POSITIVE (NEGATIVE); PHENCYCLIDINE, UR NEGATIVE (NEGATIVE)
[2017-10-24] MEDS ORDERED: Potassium Chloride 20 mEq 100 ML ONE ×2 (15:27→17:34)
[2017-10-24] MEDS ORDERED: Sodium Chloride 0.9% 1,000 ML ONE (15:27)
[2017-10-24 15:28] LABS: PROTHROMBIN TIME 11.1 SECONDS (9.7-12.2)
[2017-10-24] MEDS ORDERED: Potassium Chloride 20 mEq ER Tab PO STA (15:52)
--- NOTE | 2017-10-24 16:25 | CT ---
PROCEDURE: CT HEAD WITHOUT CONTRAST. HISTORY: AMS COMPARISON: Comparison made with CT scan of the brain 10/22/2017 TECHNIQUE: Axial computed tomography images were obtained through the head/brain without intravenous contrast. Radiation dose: Total exam DLP = 1225.38 mGy-cm. This CT exam was performed using one or more of the following dose reduction techniques: Automated exposure control, adjustment of the mA and/or kV according to patient size, and/or use of iterative reconstruction technique. FINDINGS: HEMORRHAGE: No acute parenchymal, subarachnoid or extra-axial satinder hemorrhage. BRAIN: No evidence of large acute infarct. There are a few tiny chronic bilateral basal nuclei lacunar type infarcts. Questionable minimal chronic periventricular white matter ischemic changes. No obvious parenchymal nor extra-axial mass or collection seen on this noncontrast study. . Mild moderate generalized volume loss. VENTRICLES: No obstructive hydrocephalus. CALVARIUM: No acute calvarial fractures. PARANASAL SINUSES: Previously noted small fluid level is obscured by increased mucosal thickening changes. Tiny fluid level left maxillary antrum with mild mucosal thickening in the left maxillary antrum. There has been progressive partial opacification of the ethmoid air complex as well and both chambers of the sphenoid sinus more so on the left side with tiny fluid level as well. Increased mucosal thickening in the frontal sinus. MASTOID AIR CELLS: There is a cerumen ball within the left external auditory canal. OTHER FINDINGS: None. IMPRESSION: No acute intracranial hemorrhage. 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 Suspect minimal chronic periventricular white matter ischemic changes. Mild moderate generalized volume loss. Progressive opacification melendez paranasal sinuses as described.
[2017-10-24] MEDS ORDERED: Potassium Chloride 20 mEq ER Tab PO ONE (16:32)
[2017-10-24 16:38] LABS: VENOUS BLOOD GAS BASE EXCESS 0.1 mmol/L (0.0-2.0); VENOUS BLOOD GAS PCO2 39 mmHg (40-60); VENOUS BLOOD GAS PO2 41 mm/Hg (30-55); VENOUS BLOOD PH 7.41 (7.32-7.43)
[2017-10-24] MEDS ORDERED: Multivitamin (MVI) 10 ML, Thiamine 100 MG, Folic Acid 1 MG in Sodium Chloride 0.9% 1,00... IV ONE (16:51)
[2017-10-24] MEDS ORDERED: Pantoprazole 80 MG in Sodium Chloride 0.9% 100 ML IVP STA (17:00)
[2017-10-24] MEDS ORDERED: Pantoprazole 80 MG in Sodium Chloride 0.9% 100 ML IVPB STA (17:09)
[2017-10-24] MEDS: Nitroglycerin 2% Ointment Foilpak UD TOP SCH (22:40)
[2017-10-24] MEDS: Piperacillin/Tazobact 3.375 gm 100 ML IVPB SCH (23:12)
--- NOTE | 2017-10-24 23:22 | CP.PCM.PCO ---
Physician Communication Note - Physician Communication Note Physician Communication Note: Pt will be evaluated tomorrow by C/L team (Dr. Mcgarry/Dr. Greene)
[2017-10-25] MEDS: Vancomycin 1 gm/NS 200 ml 1 GM/200 ML BAG IVPB SCH (00:14)
[2017-10-25] MEDS: Nitroglycerin 2% Ointment Foilpak UD TOP SCH ×2 (04:11→09:33)
[2017-10-25] MEDS: Piperacillin/Tazobact 3.375 gm 100 ML IVPB SCH (06:31)
[2017-10-25 07:49] LABS: HEMOGLOBIN 12.7 g/dL (12.0-18.0); MEAN CELL VOLUME 100.8 fL (80.0-94.0); MEAN CORPUSCULAR HEMOGLOBIN 34.7 pg (27.0-31.0); MEAN CORPUSCULAR HGB CONC 34.4 g/dL (33.0-37.0); MEAN PLATELET VOLUME 7.8 fL (7.2-11.7); RBC 3.65 Mil/uL (4.40-5.90); RED CELL DISTRIBUTION WIDTH 13.5 % (11.5-14.5)
[2017-10-25 07:57] LABS: ALB/GLOB RATIO 1.1 (1.0-2.1); ALBUMIN 3.8 g/dL (3.5-5.0); ALT/SGPT 90 U/L (21-72); AST/SGOT 133 U/L (17-59); BLOOD UREA NITROGEN 11 mg/dL (9-20); CALCIUM 8.1 mg/dl (8.6-10.4); GFR AFRICAN-AMERICAN > 60; GFR NON-AFRICAN AMERICAN > 60
[2017-10-25 07:59] LABS: WHITE BLOOD COUNT 8.7 K/uL (4.8-10.8)
[2017-10-25] MEDS: Enoxaparin 40 mg Syringe SC SCH (09:33)
--- NOTE | 2017-10-25 09:49 | CP.PCM.CON ---
History of Present Illness - History of Present Illness History of Present Illness: The pt is a 62 year old man, found unresponsive, still cannot give history. Labs were c/w mild hypokalemia and magnesium levels, pos for opiates and alcohol toxicitiy. CPK elevated close to 500. Cr normal. Abnormal LFTs, which have improved. CXR shows emphysema: pt is probably a smoker. Cardiology consult called for abnormal ECG, with diffuse ST segment depression on ecg. Pt is guaiaic pos Review of Systems - Review of Systems Systems not reviewed;Unavailable: Altered Mental Status Past Patient History - Infectious Disease Hx of Infectious Diseases: None - Past Medical History & Family History Past Medical History?: Yes - Past Social History Smoking Status: Smoker Currrent Status Unknown - CARDIAC Hx Hypertension: Yes - PULMONARY Hx Emphysema: Yes - NEUROLOGICAL Hx Seizures: No - HEMATOLOGICAL/ONCOLOGICAL Hx Human Immunodeficiency Virus (HIV): No - MUSCULOSKELETAL/RHEUMATOLOGICAL Hx Falls: Yes Hx Osteoporosis: Yes - GENITOURINARY/GYNECOLOGICAL Hx Sexually Transmitted Disorders: No - PSYCHIATRIC Hx Substance Use: Yes - SURGICAL HISTORY Hx Surgeries: No - ANESTHESIA Hx Anesthesia: No Hx Anesthesia Reactions: No Meds Allergies/Adverse Reactions: Allergies Allergy/AdvReac Type Severity Reaction Status Date / Time No Known Allergies Allergy Verified 02/13/17 09:49 - Medications Medications: Current Medications Aspirin (Aspirin) 325 mg PO DAILY [facility] Last Admin: 10/25/17 09:32 Dose: 325 mg Chlordiazepoxide (Librium) 25 mg PO Q6H ABIGAIL PRN Reason: Taper Stop: 10/28/17 23:59 Last Admin: 10/25/17 06:30 Dose: 25 mg Chlordiazepoxide (Librium) 25 mg PO Q4H PRN PRN Reason: Alcohol Withdrawal Last Admin: 10/24/17 22:40 Dose: 25 mg Enoxaparin Sodium (Lovenox) 40 mg SC DAILY [facility] Last Admin: 10/25/17 09:33 Dose: 40 mg Piperacillin Sod/Tazobactam Sod (Zosyn 3.375 In Ns 100ml) 100 mls @ 200 mls/hr IVPB Q8H [facility] Last Admin: 10/25/17 06:31 Dose: 200 mls/hr Vancomycin/Sodium Chloride (Vancomycin 1 Gm/Ns 200 Ml) 1 gm in 200 mls @ 166.7 mls/hr IVPB Q24H ABIGAIL PRN Reason: Protocol Stop: 10/30/17 00:01 Last Admin: 10/25/17 00:14 Dose: 166.7 mls/hr Nitroglycerin (Nitro-Bid 2% Oint) 1 ea TOP Q6H [facility] Last Admin: 10/25/17 09:33 Dose: 1 ea Pantoprazole Sodium (Protonix Inj) 40 mg IVP DAILY [facility] Last Admin: 10/25/17 09:33 Dose: 40 mg Thiamine HCl (Vitamin B1 Tab) 100 mg PO DAILY [facility] Last Admin: 10/25/17 09:32 Dose: 100 mg Physical Exam - Constitutional Appears: Unkempt - Head Exam Head Exam: ATRAUMATIC - Eye Exam Eye Exam: Periorbital swelling - ENT Exam ENT Exam: Mucous Membranes Dry - Neck Exam Neck exam: Positive for: Normal Inspection - Respiratory Exam Respiratory Exam: Decreased Breath Sounds, Clear to Auscultation Bilateral - Cardiovascular Exam Cardiovascular Exam: REGULAR RHYTHM - GI/Abdominal Exam GI & Abdominal Exam: Normal Bowel Sounds - Extremities Exam Extremities exam: Positive for: normal inspection - Neurological Exam Neurological exam: Altered (fine tremor, does not respond to name or commands. ) Results - Vital Signs Recent Vital Signs: Last Vital Signs Temp 97.5 F L 10/25/17 07:35 Pulse 79 10/25/17 07:35 Resp 20 10/25/17 07:35 BP 187/86 H 10/25/17 07:35 Pulse Ox 96 10/25/17 07:35 - Labs Result Diagrams: 10/25/17 07:39 10/25/17 07:39 Labs: Laboratory Results - last 24 hr 10/24/17 10/24/17 10/24/17 14:36 14:55 14:55 WBC 5.2 RBC 4.16 L Hgb 14.5 D Hct 41.9 MCV 100.7 H MCH 34.8 H MCHC 34.5 RDW 13.4 Plt Count 186 MPV 6.9 L Neut % (Auto) 78.5 H Lymph % (Auto) 12.2 L Maries % (Auto) 8.6 Eos % (Auto) 0.1 Baso % (Auto) 0.6 Neut # (Auto) 4.1 Lymph # (Auto) 0.6 L Maries # (Auto) 0.4 Eos # (Auto) 0.0 Baso # (Auto) 0.0 PT 11.1 INR 1.0 APTT 33 Puncture Site pCO2 pO2 HCO3 ABG pH ABG Total CO2 ABG O2 Saturation ABG Base Excess Elkin Test ABG Potassium VBG pH VBG pCO2 VBG HCO3 VBG Total CO2 VBG O2 Sat (Calc) VBG Base Excess VBG Potassium A-a O2 Difference Respiratory Index Glucose Lactate Liter Flow FiO2 Crit Value Called To Crit Value Called By Crit Value Read Back Blood Gas Notified Time Sodium Potassium Chloride Carbon Dioxide Anion Gap BUN Creatinine Est GFR ( Amer) Est GFR (Non-Af Amer) POC Glucose (mg/dL) 102 Random Glucose Lactic Acid Calcium Phosphorus Magnesium Total Bilirubin AST ALT Alkaline Phosphatase Total Creatine Kinase CK-MB (Mass) Troponin I Total Protein Albumin Globulin Albumin/Globulin Ratio Arterial Blood Potassium Venous Blood Potassium Urine Color Urine Clarity Urine pH Ur Specific Jerome Urine Protein Urine Glucose (UA) Urine Ketones Urine Blood Urine Nitrate Urine Bilirubin Urine Urobilinogen Ur Leukocyte Esterase Urine WBC (Auto) Urine RBC (Auto) Ur Squamous Epith Cells Amorphous Sediment Urine Bacteria Stool Occult Blood Salicylates Urine Opiates Screen Urine Methadone Screen Acetaminophen Ur Barbiturates Screen Ur Phencyclidine Scrn Ur Amphetamines Screen U Benzodiazepines Scrn U Oth Cocaine Metabols U Cannabinoids Screen Alcohol, Quantitative 10/24/17 10/24/17 10/24/17 14:55 14:55 14:55 WBC RBC Hgb Hct MCV MCH MCHC RDW Plt Count MPV Neut % (Auto) Lymph % (Auto) Maries % (Auto) Eos % (Auto) Baso % (Auto) Neut # (Auto) Lymph # (Auto) Maries # (Auto) Eos # (Auto) Baso # (Auto) PT INR APTT Puncture Site pCO2 pO2 HCO3 ABG pH ABG Total CO2 ABG O2 Saturation ABG Base Excess Elkin Test ABG Potassium VBG pH VBG pCO2 VBG HCO3 VBG Total CO2 VBG O2 Sat (Calc) VBG Base Excess VBG Potassium A-a O2 Difference Respiratory Index Glucose Lactate Liter Flow FiO2 Crit Value Called To Crit Value Called By Crit Value Read Back Blood Gas Notified Time Sodium 152 H Potassium 2.9 L Chloride 110 H Carbon Dioxide 22 Anion Gap 23 H BUN 13 Creatinine 0.6 L Est GFR ( Amer) > 60 Est GFR (Non-Af Amer) > 60 POC Glucose (mg/dL) Random Glucose 105 Lactic Acid Calcium 8.6 Phosphorus Magnesium Total Bilirubin 1.1 AST 166 H D ALT 101 H D Alkaline Phosphatase 103 Total Creatine Kinase 475 H CK-MB (Mass) 4.70 H Troponin I < 0.0120 Total Protein 8.1 Albumin 4.2 Globulin 4.0 H Albumin/Globulin Ratio 1.0 Arterial Blood Potassium Venous Blood Potassium Urine Color Yellow Urine Clarity Hazy Urine pH 7.0 Ur Specific Jerome 1.013 Urine Protein 1+ H Urine Glucose (UA) Normal Urine Ketones Negative Urine Blood 1+ H Urine Nitrate Negative Urine Bilirubin Negative Urine Urobilinogen 4.0 Ur Leukocyte Esterase Neg Urine WBC (Auto) 1 Urine RBC (Auto) 8 H Ur Squamous Epith Cells < 1 Amorphous Sediment Occ H Urine Bacteria Rare Stool Occult Blood Salicylates Urine Opiates Screen Positive H Urine Methadone Screen Negative Acetaminophen Ur Barbiturates Screen Negative Ur Phencyclidine Scrn Negative Ur Amphetamines Screen Negative U Benzodiazepines Scrn Negative U Oth Cocaine Metabols Negative U Cannabinoids Screen Negative Alcohol, Quantitative 365 H 10/24/17 10/24/17 10/24/17 14:55 14:58 15:32 WBC RBC Hgb Hct MCV MCH MCHC RDW Plt Count MPV Neut % (Auto) Lymph % (Auto) Maries % (Auto) Eos % (Auto) Baso % (Auto) Neut # (Auto) Lymph # (Auto) Maries # (Auto) Eos # (Auto) Baso # (Auto) PT INR APTT Puncture Site Lra pCO2 36 pO2 88 HCO3 25.4 ABG pH 7.44 ABG Total CO2 25.6 ABG O2 Saturation 98.0 ABG Base Excess 0.6 Elkin Test Pos ABG Potassium 2.5 L* VBG pH VBG pCO2 VBG HCO3 VBG Total CO2 VBG O2 Sat (Calc) VBG Base Excess VBG Potassium A-a O2 Difference 102.0 Respiratory Index 1.2 Glucose 100 Lactate 3.3 H Liter Flow 3.0 FiO2 33.0 Crit Value Called To Er nurse vishnu Crit Value Called By Ariella rt Crit Value Read Back Y Blood Gas Notified Time 1502 Sodium 150.0 H Potassium Chloride 115.0 H Carbon Dioxide Anion Gap BUN Creatinine Est GFR ( Amer) Est GFR (Non-Af Amer) POC Glucose (mg/dL) Random Glucose Lactic Acid Calcium Phosphorus Magnesium Total Bilirubin AST ALT Alkaline Phosphatase Total Creatine Kinase CK-MB (Mass) Troponin I Total Protein Albumin Globulin Albumin/Globulin Ratio Arterial Blood Potassium 2.5 L* Venous Blood Potassium Urine Color Urine Clarity Urine pH Ur Specific Jerome Urine Protein Urine Glucose (UA) Urine Ketones Urine Blood Urine Nitrate Urine Bilirubin Urine Urobilinogen Ur Leukocyte Esterase Urine WBC (Auto) Urine RBC (Auto) Ur Squamous Epith Cells Amorphous Sediment Urine Bacteria Stool Occult Blood Positive H Salicylates < 1.0 Urine Opiates Screen Urine Methadone Screen Acetaminophen < 10.0 L Ur Barbiturates Screen Ur Phencyclidine Scrn Ur Amphetamines Screen U Benzodiazepines Scrn U Oth Cocaine Metabols U Cannabinoids Screen Alcohol, Quantitative 10/24/17 10/24/17 10/24/17 16:34 17:59 22:14 WBC RBC Hgb Hct MCV MCH MCHC RDW Plt Count MPV Neut % (Auto) Lymph % (Auto) Maries % (Auto) Eos % (Auto) Baso % (Auto) Neut # (Auto) Lymph # (Auto) Maries # (Auto) Eos # (Auto) Baso # (Auto) PT INR APTT Puncture Site pCO2 pO2 41 HCO3 ABG pH ABG Total CO2 ABG O2 Saturation ABG Base Excess Elkin Test ABG Potassium VBG pH 7.41 VBG pCO2 39 L VBG HCO3 24.4 VBG Total CO2 25.9 VBG O2 Sat (Calc) 75.6 H VBG Base Excess 0.1 VBG Potassium 3.3 L A-a O2 Difference Respiratory Index Glucose 90 Lactate 3.0 H Liter Flow FiO2 Crit Value Called To Crit Value Called By Crit Value Read Back Blood Gas Notified Time Sodium 149.0 H Potassium Chloride 115.0 H Carbon Dioxide Anion Gap BUN Creatinine Est GFR ( Amer) Est GFR (Non-Af Amer) POC Glucose (mg/dL) Random Glucose Lactic Acid 2.1 Calcium Phosphorus 2.8 Magnesium 1.7 Total Bilirubin AST ALT Alkaline Phosphatase Total Creatine Kinase CK-MB (Mass) Troponin I Total Protein Albumin Globulin Albumin/Globulin Ratio Arterial Blood Potassium Venous Blood Potassium 3.3 L Urine Color Urine Clarity Urine pH Ur Specific Jerome Urine Protein Urine Glucose (UA) Urine Ketones Urine Blood Urine Nitrate Urine Bilirubin Urine Urobilinogen Ur Leukocyte Esterase Urine WBC (Auto) Urine RBC (Auto) Ur Squamous Epith Cells Amorphous Sediment Urine Bacteria Stool Occult Blood Salicylates Urine Opiates Screen Urine Methadone Screen Acetaminophen Ur Barbiturates Screen Ur Phencyclidine Scrn Ur Amphetamines Screen U Benzodiazepines Scrn U Oth Cocaine Metabols U Cannabinoids Screen Alcohol, Quantitative 10/24/17 10/25/17 10/25/17 22:14 07:39 07:39 WBC 8.7 D RBC 3.65 L Hgb 12.7 Hct 36.8 MCV 100.8 H MCH 34.7 H MCHC 34.4 RDW 13.5 Plt Count 136 MPV 7.8 Neut % (Auto) Lymph % (Auto) Maries % (Auto) Eos % (Auto) Baso % (Auto) Neut # (Auto) Lymph # (Auto) Maries # (Auto) Eos # (Auto) Baso # (Auto) PT INR APTT Puncture Site pCO2 pO2 HCO3 ABG pH ABG Total CO2 ABG O2 Saturation ABG Base Excess Elkin Test ABG Potassium VBG pH VBG pCO2 VBG HCO3 VBG Total CO2 VBG O2 Sat (Calc) VBG Base Excess VBG Potassium A-a O2 Difference Respiratory Index Glucose Lactate Liter Flow FiO2 Crit Value Called To Crit Value Called By Crit Value Read Back Blood Gas Notified Time Sodium 138 Potassium 3.1 L Chloride 103 Carbon Dioxide 21 L Anion Gap 17 BUN 11 Creatinine 0.5 L Est GFR ( Amer) > 60 Est GFR (Non-Af Amer) > 60 POC Glucose (mg/dL) Random Glucose 79 Lactic Acid Calcium 8.1 L Phosphorus Magnesium Total Bilirubin 2.1 H AST 133 H ALT 90 H Alkaline Phosphatase 83 Total Creatine Kinase CK-MB (Mass) Troponin I < 0.0120 Total Protein 7.2 Albumin 3.8 Globulin 3.4 Albumin/Globulin Ratio 1.1 Arterial Blood Potassium Venous Blood Potassium Urine Color Urine Clarity Urine pH Ur Specific Jerome Urine Protein Urine Glucose (UA) Urine Ketones Urine Blood Urine Nitrate Urine Bilirubin Urine Urobilinogen Ur Leukocyte Esterase Urine WBC (Auto) Urine RBC (Auto) Ur Squamous Epith Cells Amorphous Sediment Urine Bacteria Stool Occult Blood Salicylates Urine Opiates Screen Urine Methadone Screen Acetaminophen Ur Barbiturates Screen Ur Phencyclidine Scrn Ur Amphetamines Screen U Benzodiazepines Scrn U Oth Cocaine Metabols U Cannabinoids Screen Alcohol, Quantitative 10/25/17 07:39 WBC RBC Hgb Hct MCV MCH MCHC RDW Plt Count MPV Neut % (Auto) Lymph % (Auto) Maries % (Auto) Eos % (Auto) Baso % (Auto) Neut # (Auto) Lymph # (Auto) Maries # (Auto) Eos # (Auto) Baso # (Auto) PT INR APTT Puncture Site pCO2 pO2 HCO3 ABG pH ABG Total CO2 ABG O2 Saturation ABG Base Excess Elkin Test ABG Potassium VBG pH VBG pCO2 VBG HCO3 VBG Total CO2 VBG O2 Sat (Calc) VBG Base Excess VBG Potassium A-a O2 Difference Respiratory Index Glucose Lactate Liter Flow FiO2 Crit Value Called To Crit Value Called By Crit Value Read Back Blood Gas Notified Time Sodium Potassium Chloride Carbon Dioxide Anion Gap BUN Creatinine Est GFR ( Amer) Est GFR (Non-Af Amer) POC Glucose (mg/dL) Random Glucose Lactic Acid Calcium Phosphorus Magnesium Total Bilirubin AST ALT Alkaline Phosphatase Total Creatine Kinase CK-MB (Mass) Troponin I 0.0190 Total Protein Albumin Globulin Albumin/Globulin Ratio Arterial Blood Potassium Venous Blood Potassium Urine Color Urine Clarity Urine pH Ur Specific Jerome Urine Protein Urine Glucose (UA) Urine Ketones Urine Blood Urine Nitrate Urine Bilirubin Urine Urobilinogen Ur Leukocyte Esterase Urine WBC (Auto) Urine RBC (Auto) Ur Squamous Epith Cells Amorphous Sediment Urine Bacteria Stool Occult Blood Salicylates Urine Opiates Screen Urine Methadone Screen Acetaminophen Ur Barbiturates Screen Ur Phencyclidine Scrn Ur Amphetamines Screen U Benzodiazepines Scrn U Oth Cocaine Metabols U Cannabinoids Screen Alcohol, Quantitative Assessment & Plan - Assessment and Plan (Free Text) Assessment: Non verbal man with abnormal ECG> TNI normal. Elevated cpk likely from [place]. Would replace elctrolytes, repeat ecg. Echo to asses lvef. Additional work up after pt is arousable.
--- NOTE | 2017-10-25 10:19 | CP.PCM.PN ---
Subjective - Date & Time of Evaluation Date of Evaluation: 10/25/17 Time of Evaluation: 09:00 - Subjective Subjective: PGY2 Medicine Note for Dr. Phil Atwood Patient seen and examined at bedside this morning. No acute events overnight. Patient is a poor historian and does not remember why the ambulance was called. Patient reports worsening tremors this morning. Objective - Vital Signs/Intake and Output Vital Signs (last 24 hours): Temp Pulse Resp BP Pulse Ox 97.5 F L 79 20 187/86 H 96 10/25/17 07:35 10/25/17 07:35 10/25/17 07:35 10/25/17 07:35 10/25/17 07:35 Intake and Output: 10/25/17 10/25/17 06:59 18:59 Intake Total 525 Output Total 500 Balance 25 - Medications Medications: Current Medications Aspirin (Aspirin) 325 mg PO DAILY [facility] Last Admin: 10/25/17 09:32 Dose: 325 mg Chlordiazepoxide (Librium) 25 mg PO Q6H ABIGAIL PRN Reason: Taper Stop: 10/28/17 23:59 Last Admin: 10/25/17 06:30 Dose: 25 mg Chlordiazepoxide (Librium) 25 mg PO Q4H PRN PRN Reason: Alcohol Withdrawal Last Admin: 10/24/17 22:40 Dose: 25 mg Enoxaparin Sodium (Lovenox) 40 mg SC DAILY [facility] Last Admin: 10/25/17 09:33 Dose: 40 mg Piperacillin Sod/Tazobactam Sod (Zosyn 3.375 In Ns 100ml) 100 mls @ 200 mls/hr IVPB Q8H [facility] Last Admin: 10/25/17 06:31 Dose: 200 mls/hr Vancomycin/Sodium Chloride (Vancomycin 1 Gm/Ns 200 Ml) 1 gm in 200 mls @ 166.7 mls/hr IVPB Q24H [facility] PRN Reason: Protocol Stop: 10/30/17 00:01 Last Admin: 10/25/17 00:14 Dose: 166.7 mls/hr Pantoprazole Sodium (Protonix Inj) 40 mg IVP DAILY [facility] Last Admin: 10/25/17 09:33 Dose: 40 mg Thiamine HCl (Vitamin B1 Tab) 100 mg PO DAILY [facility] Last Admin: 10/25/17 09:32 Dose: 100 mg - Labs Labs: 10/25/17 07:39 10/25/17 07:39 PT 11.1 SECONDS (9.7-12.2) 10/24/17 14:55 INR 1.0 10/24/17 14:55 APTT 33 SECONDS (21-34) 10/24/17 14:55 - Constitutional Appears: Unkempt, Older Than Stated Age - Head Exam Head Exam: ATRAUMATIC, NORMOCEPHALIC - Eye Exam Eye Exam: Normal appearance - ENT Exam ENT Exam: Mucous Membranes Dry Additional comments: missing teeth - Neck Exam Neck Exam: absent: Lymphadenopathy - Respiratory Exam Respiratory Exam: absent: Accessory Muscle Use, Rales, Wheezes, Respiratory Distress - Cardiovascular Exam Cardiovascular Exam: REGULAR RHYTHM, +S1, +S2 - GI/Abdominal Exam GI & Abdominal Exam: Soft. absent: Distended, Firm, Guarding, Rigid, Tenderness - Extremities Exam Extremities Exam: absent: Calf Tenderness, Pedal Edema - Neurological Exam Neurological Exam: Alert, Awake, Oriented x3 Additional comments: tremors in UE b/l - Psychiatric Exam Psychiatric exam: Normal Affect, Normal Mood - Skin Skin Exam: Dry, Warm Assessment and Plan - Assessment and Plan (Free Text) Plan: Alcohol Abuse - Alcohol Level (10/24/17): 365 - Head CT: No acute intracranial hemorrhage. 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 Suspect minimal chronic periventricular white matter ischemic changes. Mild moderate generalized volume loss. Progressive opacification melendez paranasal sinuses as described. - Psych Consult: Dr. Onofre --> help appreciated - Ativan 2mg q4prn - Librium 25mg po q6h - Librium 25mg po q4h prn - Clonidine .1mg q6prn systolic b/p >160 - Folic Acid 1mg po daily - Thiamine 100mg po daily Altered Mental Status - poor historian - Head CT: No acute intracranial hemorrhage. 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 Suspect minimal chronic periventricular white matter ischemic changes. Mild moderate generalized volume loss. Progressive opacification melendez paranasal sinuses as described. Stool Occult Positive - H/H: 12.7/36.8 - Protonix 40mg IV daily - GI Consult: Dr. Mendoza --> help appreciated UDS + - UDS + opiates - Psych Consult: Dr. Onofre --> help appreciated Elevated Liver Enzymes - AST/ALT: 133/90 - Hepatitis C antibody + - HIV negative Hypokalemia - K 3.1 - Repleated Elevated Lactic Acid - ID Consult: Dr. Gatica --> help appreciated - Lactic Acid 2.1 - Vancomycin 1gm IVPB q24h - Vanco Troph 9.1 (10/26/17) - Zosyn 3.375gm q8h History of HTN - Cardiology Consult: Dr. Moyer --> help appreciated - EKG: Sinus tach @100bpm History COPD - Chest Xray: Re- demonstrated are hyperinflation changes both lungs; rule out underlying COPD or emphysema. - Pulm Consult: Dr. Wright --> help appreciated Prophylaxis - SCDs - VTE contraindication - Protonix 40mg IV daily All medical management as per Dr. Atwood
[2017-10-25] MEDS: Potassium Chloride 20 mEq ER Tab PO SCH ×2 (10:52→14:57)
--- NOTE | 2017-10-25 12:05 | CP.PCM.CON ---
History of Present Illness - History of Present Illness History of Present Illness: found down in front of liquor store appears disheveled weak and confused suspect impending DT's and or seizures lungs sound congested elevated lactate on admission skin turgor poor ? celllulitis leg recc : Neuro eval cont iv antibiotics seizure prcautions Review of Systems - Review of Systems Systems not reviewed;Unavailable: Altered Mental Status Past Patient History - Infectious Disease Hx of Infectious Diseases: None - Past Medical History & Family History Past Medical History?: Yes - Past Social History Smoking Status: Smoker Currrent Status Unknown - CARDIAC Hx Hypertension: Yes - PULMONARY Hx Emphysema: Yes - NEUROLOGICAL Hx Seizures: No - HEMATOLOGICAL/ONCOLOGICAL Hx Human Immunodeficiency Virus (HIV): No - MUSCULOSKELETAL/RHEUMATOLOGICAL Hx Falls: Yes Hx Osteoporosis: Yes - GENITOURINARY/GYNECOLOGICAL Hx Sexually Transmitted Disorders: No - PSYCHIATRIC Hx Substance Use: Yes - SURGICAL HISTORY Hx Surgeries: No - ANESTHESIA Hx Anesthesia: No Hx Anesthesia Reactions: No Meds Allergies/Adverse Reactions: Allergies Allergy/AdvReac Type Severity Reaction Status Date / Time No Known Allergies Allergy Verified 02/13/17 09:49 - Medications Medications: Current Medications Aspirin (Aspirin) 325 mg PO DAILY [facility] Last Admin: 10/25/17 09:32 Dose: 325 mg Chlordiazepoxide (Librium) 25 mg PO Q6H [facility] PRN Reason: Taper Stop: 10/28/17 23:59 Last Admin: 10/25/17 11:42 Dose: 25 mg Chlordiazepoxide (Librium) 25 mg PO Q4H PRN PRN Reason: Alcohol Withdrawal Last Admin: 10/24/17 22:40 Dose: 25 mg Enoxaparin Sodium (Lovenox) 40 mg SC DAILY [facility] Last Admin: 10/25/17 09:33 Dose: 40 mg Vancomycin/Sodium Chloride (Vancomycin 1 Gm/Ns 200 Ml) 1 gm in 200 mls @ 166.7 mls/hr IVPB Q24H [facility] PRN Reason: Protocol Stop: 10/30/17 00:01 Last Admin: 10/25/17 00:14 Dose: 166.7 mls/hr Piperacillin Sod/Tazobactam (Sod 3.375 gm/ Sodium Chloride) 100 mls @ 200 mls/ hr IVPB Q8H [facility] Pantoprazole Sodium (Protonix Inj) 40 mg IVP DAILY [facility] Last Admin: 10/25/17 09:33 Dose: 40 mg Potassium Chloride (K-Dur 20 Meq Er Tab) 40 meq PO Q4H [facility] Stop: 10/25/17 14:31 Last Admin: 10/25/17 10:52 Dose: 40 meq Thiamine HCl (Vitamin B1 Tab) 100 mg PO DAILY [facility] Last Admin: 10/25/17 09:32 Dose: 100 mg Physical Exam - Constitutional Appears: Cachectic, Chronically Ill - Eye Exam Eye Exam: PERRL. absent: Scleral icterus - ENT Exam ENT Exam: Mucous Membranes Dry, Normal External Ear Exam - Neck Exam Neck exam: Negative for: Lymphadenopathy - Respiratory Exam Respiratory Exam: Decreased Breath Sounds, Prolonged Expiratory Phase, Rhonchi - Cardiovascular Exam Cardiovascular Exam: REGULAR RHYTHM, +S1, +S2 - GI/Abdominal Exam GI & Abdominal Exam: Diminished Bowel Sounds, Soft. absent: Tenderness - Rectal Exam Rectal Exam: Deferred - Exam Exam: NORMAL INSPECTION - Extremities Exam Extremities exam: Positive for: pedal pulses present. Negative for: calf tenderness, normal inspection, pedal edema, tenderness - Back Exam Back exam: absent: CVA tenderness (L), CVA tenderness (R) - Neurological Exam Neurological exam: Alert, Altered, CN II-XII Intact - Psychiatric Exam Psychiatric exam: Depressed - Skin Skin Exam: Dry, Erythema Results - Vital Signs Recent Vital Signs: Last Vital Signs Temp 97.5 F L 10/25/17 07:35 Pulse 56 L 10/25/17 07:50 Resp 20 10/25/17 07:35 BP 187/86 H 10/25/17 07:35 Pulse Ox 96 10/25/17 07:35 - Labs Result Diagrams: 10/25/17 07:39 10/25/17 07:39 Labs: Laboratory Results - last 24 hr 10/24/17 10/24/17 10/24/17 14:36 14:55 14:55 WBC 5.2 RBC 4.16 L Hgb 14.5 D Hct 41.9 MCV 100.7 H MCH 34.8 H MCHC 34.5 RDW 13.4 Plt Count 186 MPV 6.9 L Neut % (Auto) 78.5 H Lymph % (Auto) 12.2 L [place] % (Auto) 8.6 Eos % (Auto) 0.1 Baso % (Auto) 0.6 Neut # (Auto) 4.1 Lymph # (Auto) 0.6 L [place] # (Auto) 0.4 Eos # (Auto) 0.0 Baso # (Auto) 0.0 PT 11.1 INR 1.0 APTT 33 Puncture Site pCO2 pO2 HCO3 ABG pH ABG Total CO2 ABG O2 Saturation ABG Base Excess [place] Test ABG Potassium VBG pH VBG pCO2 VBG HCO3 VBG Total CO2 VBG O2 Sat (Calc) VBG Base Excess VBG Potassium A-a O2 Difference Respiratory Index Glucose Lactate Liter Flow FiO2 Crit Value Called To Crit Value Called By Crit Value Read Back Blood Gas Notified Time Sodium Potassium Chloride Carbon Dioxide Anion Gap BUN Creatinine Est GFR ( Amer) Est GFR (Non-Af Amer) POC Glucose (mg/dL) 102 Random Glucose Lactic Acid Calcium Phosphorus Magnesium Total Bilirubin AST ALT Alkaline Phosphatase Total Creatine Kinase CK-MB (Mass) Troponin I Total Protein Albumin Globulin Albumin/Globulin Ratio Arterial Blood Potassium Venous Blood Potassium Urine Color Urine Clarity Urine pH Ur Specific [place] Urine Protein Urine Glucose (UA) Urine Ketones Urine Blood Urine Nitrate Urine Bilirubin Urine Urobilinogen Ur Leukocyte Esterase Urine WBC (Auto) Urine RBC (Auto) Ur Squamous Epith Cells Amorphous Sediment Urine Bacteria Stool Occult Blood Salicylates Urine Opiates Screen Urine Methadone Screen Acetaminophen Ur Barbiturates Screen Ur Phencyclidine Scrn Ur Amphetamines Screen U Benzodiazepines Scrn U Oth Cocaine Metabols U Cannabinoids Screen Alcohol, Quantitative 10/24/17 10/24/17 10/24/17 14:55 14:55 14:55 WBC RBC Hgb Hct MCV MCH MCHC RDW Plt Count MPV Neut % (Auto) Lymph % (Auto) Citrus % (Auto) Eos % (Auto) Baso % (Auto) Neut # (Auto) Lymph # (Auto) [place] # (Auto) Eos # (Auto) Baso # (Auto) PT INR APTT Puncture Site pCO2 pO2 HCO3 ABG pH ABG Total CO2 ABG O2 Saturation ABG Base Excess [place] Test ABG Potassium VBG pH VBG pCO2 VBG HCO3 VBG Total CO2 VBG O2 Sat (Calc) VBG Base Excess VBG Potassium A-a O2 Difference Respiratory Index Glucose Lactate Liter Flow FiO2 Crit Value Called To Crit Value Called By Crit Value Read Back Blood Gas Notified Time Sodium 152 H Potassium 2.9 L Chloride 110 H Carbon Dioxide 22 Anion Gap 23 H BUN 13 Creatinine 0.6 L Est GFR ( Amer) > 60 Est GFR (Non-Af Amer) > 60 POC Glucose (mg/dL) Random Glucose 105 Lactic Acid Calcium 8.6 Phosphorus Magnesium Total Bilirubin 1.1 AST 166 H D ALT 101 H D Alkaline Phosphatase 103 Total Creatine Kinase 475 H CK-MB (Mass) 4.70 H Troponin I < 0.0120 Total Protein 8.1 Albumin 4.2 Globulin 4.0 H Albumin/Globulin Ratio 1.0 Arterial Blood Potassium Venous Blood Potassium Urine Color Yellow Urine Clarity Hazy Urine pH 7.0 Ur Specific [place] 1.013 Urine Protein 1+ H Urine Glucose (UA) Normal Urine Ketones Negative Urine Blood 1+ H Urine Nitrate Negative Urine Bilirubin Negative Urine Urobilinogen 4.0 Ur Leukocyte Esterase Neg Urine WBC (Auto) 1 Urine RBC (Auto) 8 H Ur Squamous Epith Cells < 1 Amorphous Sediment Occ H Urine Bacteria Rare Stool Occult Blood Salicylates Urine Opiates Screen Positive H Urine Methadone Screen Negative Acetaminophen Ur Barbiturates Screen Negative Ur Phencyclidine Scrn Negative Ur Amphetamines Screen Negative U Benzodiazepines Scrn Negative U Oth Cocaine Metabols Negative U Cannabinoids Screen Negative Alcohol, Quantitative 365 H 10/24/17 10/24/17 10/24/17 14:55 14:58 15:32 WBC RBC Hgb Hct MCV MCH MCHC RDW Plt Count MPV Neut % (Auto) Lymph % (Auto) [place]rus % (Auto) Eos % (Auto) Baso % (Auto) Neut # (Auto) Lymph # (Auto) [place] # (Auto) Eos # (Auto) Baso # (Auto) PT INR APTT Puncture Site Lra pCO2 36 pO2 88 HCO3 25.4 ABG pH 7.44 ABG Total CO2 25.6 ABG O2 Saturation 98.0 ABG Base Excess 0.6 [place] Test Pos ABG Potassium 2.5 L* VBG pH VBG pCO2 VBG HCO3 VBG Total CO2 VBG O2 Sat (Calc) VBG Base Excess VBG Potassium A-a O2 Difference 102.0 Respiratory Index 1.2 Glucose 100 Lactate 3.3 H Liter Flow 3.0 FiO2 33.0 Crit Value Called To Er nurse vishnu Crit Value Called By Ariella rt Crit Value Read Back Y Blood Gas Notified Time 1502 Sodium 150.0 H Potassium Chloride 115.0 H Carbon Dioxide Anion Gap BUN Creatinine Est GFR ( Amer) Est GFR (Non-Af Amer) POC Glucose (mg/dL) Random Glucose Lactic Acid Calcium Phosphorus Magnesium Total Bilirubin AST ALT Alkaline Phosphatase Total Creatine Kinase CK-MB (Mass) Troponin I Total Protein Albumin Globulin Albumin/Globulin Ratio Arterial Blood Potassium 2.5 L* Venous Blood Potassium Urine Color Urine Clarity Urine pH Ur Specific [place] Urine Protein Urine Glucose (UA) Urine Ketones Urine Blood Urine Nitrate Urine Bilirubin Urine Urobilinogen Ur Leukocyte Esterase Urine WBC (Auto) Urine RBC (Auto) Ur Squamous Epith Cells Amorphous Sediment Urine Bacteria Stool Occult Blood Positive H Salicylates < 1.0 Urine Opiates Screen Urine Methadone Screen Acetaminophen < 10.0 L Ur Barbiturates Screen Ur Phencyclidine Scrn Ur Amphetamines Screen U Benzodiazepines Scrn U Oth Cocaine Metabols U Cannabinoids Screen Alcohol, Quantitative 10/24/17 10/24/17 10/24/17 16:34 17:59 22:14 WBC RBC Hgb Hct MCV MCH MCHC RDW Plt Count MPV Neut % (Auto) Lymph % (Auto) [place] % (Auto) Eos % (Auto) Baso % (Auto) Neut # (Auto) Lymph # (Auto) [place] # (Auto) Eos # (Auto) Baso # (Auto) PT INR APTT Puncture Site pCO2 pO2 41 HCO3 ABG pH ABG Total CO2 ABG O2 Saturation ABG Base Excess [place] Test ABG Potassium VBG pH 7.41 VBG pCO2 39 L VBG HCO3 24.4 VBG Total CO2 25.9 VBG O2 Sat (Calc) 75.6 H VBG Base Excess 0.1 VBG Potassium 3.3 L A-a O2 Difference Respiratory Index Glucose 90 Lactate 3.0 H Liter Flow FiO2 Crit Value Called To Crit Value Called By Crit Value Read Back Blood Gas Notified Time Sodium 149.0 H Potassium Chloride 115.0 H Carbon Dioxide Anion Gap BUN Creatinine Est GFR ( Amer) Est GFR (Non-Af Amer) POC Glucose (mg/dL) Random Glucose Lactic Acid 2.1 Calcium Phosphorus 2.8 Magnesium 1.7 Total Bilirubin AST ALT Alkaline Phosphatase Total Creatine Kinase CK-MB (Mass) Troponin I Total Protein Albumin Globulin Albumin/Globulin Ratio Arterial Blood Potassium Venous Blood Potassium 3.3 L Urine Color Urine Clarity Urine pH Ur Specific [place] Urine Protein Urine Glucose (UA) Urine Ketones Urine Blood Urine Nitrate Urine Bilirubin Urine Urobilinogen Ur Leukocyte Esterase Urine WBC (Auto) Urine RBC (Auto) Ur Squamous Epith Cells Amorphous Sediment Urine Bacteria Stool Occult Blood Salicylates Urine Opiates Screen Urine Methadone Screen Acetaminophen Ur Barbiturates Screen Ur Phencyclidine Scrn Ur Amphetamines Screen U Benzodiazepines Scrn U Oth Cocaine Metabols U Cannabinoids Screen Alcohol, Quantitative 10/24/17 10/25/17 10/25/17 22:14 07:39 07:39 WBC 8.7 D RBC 3.65 L Hgb 12.7 Hct 36.8 MCV 100.8 H MCH 34.7 H MCHC 34.4 RDW 13.5 Plt Count 136 MPV 7.8 Neut % (Auto) Lymph % (Auto) [place] % (Auto) Eos % (Auto) Baso % (Auto) Neut # (Auto) Lymph # (Auto) [place] # (Auto) Eos # (Auto) Baso # (Auto) PT INR APTT Puncture Site pCO2 pO2 HCO3 ABG pH ABG Total CO2 ABG O2 Saturation ABG Base Excess [place] Test ABG Potassium VBG pH VBG pCO2 VBG HCO3 VBG Total CO2 VBG O2 Sat (Calc) VBG Base Excess VBG Potassium A-a O2 Difference Respiratory Index Glucose Lactate Liter Flow FiO2 Crit Value Called To Crit Value Called By Crit Value Read Back Blood Gas Notified Time Sodium 138 Potassium 3.1 L Chloride 103 Carbon Dioxide 21 L Anion Gap 17 BUN 11 Creatinine 0.5 L Est GFR ( Amer) > 60 Est GFR (Non-Af Amer) > 60 POC Glucose (mg/dL) Random Glucose 79 Lactic Acid Calcium 8.1 L Phosphorus Magnesium Total Bilirubin 2.1 H AST 133 H ALT 90 H Alkaline Phosphatase 83 Total Creatine Kinase CK-MB (Mass) Troponin I < 0.0120 Total Protein 7.2 Albumin 3.8 Globulin 3.4 Albumin/Globulin Ratio 1.1 Arterial Blood Potassium Venous Blood Potassium Urine Color Urine Clarity Urine pH Ur Specific [place] Urine Protein Urine Glucose (UA) Urine Ketones Urine Blood Urine Nitrate Urine Bilirubin Urine Urobilinogen Ur Leukocyte Esterase Urine WBC (Auto) Urine RBC (Auto) Ur Squamous Epith Cells Amorphous Sediment Urine Bacteria Stool Occult Blood Salicylates Urine Opiates Screen Urine Methadone Screen Acetaminophen Ur Barbiturates Screen Ur Phencyclidine Scrn Ur Amphetamines Screen U Benzodiazepines Scrn U Oth Cocaine Metabols U Cannabinoids Screen Alcohol, Quantitative 10/25/17 07:39 WBC RBC Hgb Hct MCV MCH MCHC RDW Plt Count MPV Neut % (Auto) Lymph % (Auto) [place] % (Auto) Eos % (Auto) Baso % (Auto) Neut # (Auto) Lymph # (Auto) [place] # (Auto) Eos # (Auto) Baso # (Auto) PT INR APTT Puncture Site pCO2 pO2 HCO3 ABG pH ABG Total CO2 ABG O2 Saturation ABG Base Excess [place] Test ABG Potassium VBG pH VBG pCO2 VBG HCO3 VBG Total CO2 VBG O2 Sat (Calc) VBG Base Excess VBG Potassium A-a O2 Difference Respiratory Index Glucose Lactate Liter Flow FiO2 Crit Value Called To Crit Value Called By Crit Value Read Back Blood Gas Notified Time Sodium Potassium Chloride Carbon Dioxide Anion Gap BUN Creatinine Est GFR ( Amer) Est GFR (Non-Af Amer) POC Glucose (mg/dL) Random Glucose Lactic Acid Calcium Phosphorus Magnesium Total Bilirubin AST ALT Alkaline Phosphatase Total Creatine Kinase CK-MB (Mass) Troponin I 0.0190 Total Protein Albumin Globulin Albumin/Globulin Ratio Arterial Blood Potassium Venous Blood Potassium Urine Color Urine Clarity Urine pH Ur Specific [place] Urine Protein Urine Glucose (UA) Urine Ketones Urine Blood Urine Nitrate Urine Bilirubin Urine Urobilinogen Ur Leukocyte Esterase Urine WBC (Auto) Urine RBC (Auto) Ur Squamous Epith Cells Amorphous Sediment Urine Bacteria Stool Occult Blood Salicylates Urine Opiates Screen Urine Methadone Screen Acetaminophen Ur Barbiturates Screen Ur Phencyclidine Scrn Ur Amphetamines Screen U Benzodiazepines Scrn U Oth Cocaine Metabols U Cannabinoids Screen Alcohol, Quantitative Assessment & Plan (1) Alcohol intoxication Status: Acute (2) Dehydration Status: Acute (3) Elevated CK Status: Acute (4) Elevated lactic acid level Status: Acute (5) Guaiac positive stools Status: Acute (6) Heat exhaustion Status: Acute (7) Hypokalemia Status: Acute (8) Agitation Status: Acute (9) Drug dependence Status: Acute (10) Opioid use disorder, severe, dependence Status: Acute - Assessment and Plan (Free Text) Assessment: ound down in front of liquor store appears disheveled weak and confused suspect impending DT's and or seizures lungs sound congested elevated lactate on admission skin turgor poor ? celllulitis leg recc : Neuro eval cont iv antibiotics seizure prcautions
[2017-10-25] MEDS: Piperacillin/Tazobact 3.375 GM in Sodium Chloride 0.9% 100 ML IVPB SCH ×2 (16:11→21:35)
--- NOTE | 2017-10-25 19:58 | CARD ---
APPROVED REPORT EKG Measurement Heart [id number] <Conclusion> Sinus tachycardia Right atrial enlargement Nonspecific ST abnormality Abnormal ECG
--- NOTE | 2017-10-25 20:37 | CP.PCM.HP ---
Past Patient History - Infectious Disease Hx of Infectious Diseases: None - Past Medical History & Family History Past Medical History?: Yes - Past Social History Smoking Status: Smoker Currrent Status Unknown - CARDIAC Hx Hypertension: Yes - PULMONARY Hx Emphysema: Yes - NEUROLOGICAL Hx Seizures: No - HEMATOLOGICAL/ONCOLOGICAL Hx Human Immunodeficiency Virus (HIV): No - MUSCULOSKELETAL/RHEUMATOLOGICAL Hx Falls: Yes Hx Osteoporosis: Yes - GENITOURINARY/GYNECOLOGICAL Hx Sexually Transmitted Disorders: No - PSYCHIATRIC Hx Substance Use: Yes - SURGICAL HISTORY Hx Surgeries: No - ANESTHESIA Hx Anesthesia: No Hx Anesthesia Reactions: No Meds Allergies/Adverse Reactions: Allergies Allergy/AdvReac Type Severity Reaction Status Date / Time No Known Allergies Allergy Verified 02/13/17 09:49 Physical Exam - Constitutional Appears: Well - Head Exam Head Exam: ATRAUMATIC, NORMAL INSPECTION, NORMOCEPHALIC - Eye Exam Eye Exam: EOMI, Normal appearance, PERRL Pupil Exam: NORMAL ACCOMODATION, PERRL - ENT Exam ENT Exam: Mucous Membranes Moist, Normal Exam - Neck Exam Neck exam: Positive for: Normal Inspection - Respiratory Exam Respiratory Exam: Decreased Breath Sounds - Cardiovascular Exam Cardiovascular Exam: REGULAR RHYTHM, +S1, +S2 - GI/Abdominal Exam GI & Abdominal Exam: Diminished Bowel Sounds, Soft - Rectal Exam Rectal Exam: Deferred Results - Vital Signs Recent Vital Signs: Last Vital Signs Temp 98.7 F 10/25/17 15:44 Pulse 77 10/25/17 16:00 Resp 20 10/25/17 15:44 BP 171/93 H 10/25/17 15:44 Pulse Ox 97 10/25/17 15:44 - Labs Result Diagrams: 10/25/17 07:39 10/25/17 07:39 Labs: Laboratory Results - last 24 hr 10/24/17 10/24/17 10/25/17 22:14 22:14 07:39 WBC 8.7 D RBC 3.65 L Hgb 12.7 Hct 36.8 MCV 100.8 H MCH 34.7 H MCHC 34.4 RDW 13.5 Plt Count 136 MPV 7.8 Sodium Potassium Chloride Carbon Dioxide Anion Gap BUN Creatinine Est GFR ( Amer) Est GFR (Non-Af Amer) Random Glucose Lactic Acid 2.1 Calcium Total Bilirubin AST ALT Alkaline Phosphatase Troponin I < 0.0120 Total Protein Albumin Globulin Albumin/Globulin Ratio 10/25/17 10/25/17 07:39 07:39 WBC RBC Hgb Hct MCV MCH MCHC RDW Plt Count MPV Sodium 138 Potassium 3.1 L Chloride 103 Carbon Dioxide 21 L Anion Gap 17 BUN 11 Creatinine 0.5 L Est GFR ( Amer) > 60 Est GFR (Non-Af Amer) > 60 Random Glucose 79 Lactic Acid Calcium 8.1 L Total Bilirubin 2.1 H AST 133 H ALT 90 H Alkaline Phosphatase 83 Troponin I 0.0190 Total Protein 7.2 Albumin 3.8 Globulin 3.4 Albumin/Globulin Ratio 1.1
[2017-10-26] MEDS: Vancomycin 1 gm/NS 200 ml 1 GM/200 ML BAG IVPB SCH (02:01)
[2017-10-26 08:04] LABS: VANCOMYCIN TROUGH 9.1 ug/mL (5.0-10.0)
[2017-10-26] MEDS: Piperacillin/Tazobact 3.375 GM in Sodium Chloride 0.9% 100 ML IVPB SCH ×3 (08:20→22:14)
[2017-10-26 08:32] LABS: HEPATITIS B SURFACE AG Negative (NEGATIVE)
[2017-10-26 08:37] LABS: HEPATITIS A IGM NEGATIVE (NEGATIVE); HEPATITIS B CORE AB NEGATIVE (NEGATIVE)
[2017-10-26 09:03] LABS: HIV 1&2 ANTIBODY NEGATIVE (NEGATIVE)
--- NOTE | 2017-10-26 09:05 | CP.PCM.PN ---
Subjective - Date & Time of Evaluation Date of Evaluation: 10/26/17 Time of Evaluation: 07:00 - Subjective Subjective: PGY2 Medicine Note for Dr. Phil Atwood Patient seen and examined at bedside this morning. No acute events overnight. Patient is a poor historian. Per nurse patient had a few episodes of diarrhea this morning and the diarrhea was dark in color. Objective - Vital Signs/Intake and Output Vital Signs (last 24 hours): Temp Pulse Resp BP Pulse Ox 97.8 F 91 H 20 161/107 H 96 10/26/17 00:00 10/26/17 00:00 10/26/17 00:00 10/26/17 02:30 10/26/17 00:00 - Medications Medications: Current Medications Aspirin (Aspirin) 325 mg PO DAILY [facility] Last Admin: 10/25/17 09:32 Dose: 325 mg Chlordiazepoxide (Librium) 25 mg PO Q8H [facility] PRN Reason: Taper Stop: 10/28/17 23:59 Last Admin: 10/26/17 08:30 Dose: 25 mg Chlordiazepoxide (Librium) 25 mg PO Q4H PRN PRN Reason: Alcohol Withdrawal Last Admin: 10/26/17 06:41 Dose: 25 mg Enoxaparin Sodium (Lovenox) 40 mg SC DAILY [facility] Last Admin: 10/25/17 09:33 Dose: 40 mg Vancomycin/Sodium Chloride (Vancomycin 1 Gm/Ns 200 Ml) 1 gm in 200 mls @ 166.7 mls/hr IVPB Q24H [facility] PRN Reason: Protocol Stop: 10/30/17 00:01 Last Admin: 10/26/17 02:01 Dose: 166.7 mls/hr Piperacillin Sod/Tazobactam (Sod 3.375 gm/ Sodium Chloride) 100 mls @ 200 mls/ hr IVPB Q8H [facility] Last Admin: 10/26/17 08:20 Dose: 200 mls/hr Lorazepam (Ativan) 2 mg IVP Q4H PRN PRN Reason: Symptoms of alcohol withdrawl Last Admin: 10/25/17 20:20 Dose: 2 mg Pantoprazole Sodium (Protonix Inj) 40 mg IVP DAILY [facility] Last Admin: 10/25/17 09:33 Dose: 40 mg Thiamine HCl (Vitamin B1 Tab) 100 mg PO DAILY [facility] Last Admin: 10/25/17 09:32 Dose: 100 mg - Labs Labs: 10/25/17 07:39 10/25/17 07:39 PT 11.1 SECONDS (9.7-12.2) 10/24/17 14:55 INR 1.0 10/24/17 14:55 APTT 33 SECONDS (21-34) 10/24/17 14:55 - Head Exam Head Exam: ATRAUMATIC, NORMAL INSPECTION - Eye Exam Eye Exam: EOMI, Normal appearance, PERRL. absent: Scleral icterus Pupil Exam: NORMAL ACCOMODATION - ENT Exam ENT Exam: Mucous Membranes Dry - Respiratory Exam Respiratory Exam: Clear to Ausculation Bilateral, NORMAL BREATHING PATTERN - Cardiovascular Exam Cardiovascular Exam: REGULAR RHYTHM, +S1, +S2 - GI/Abdominal Exam GI & Abdominal Exam: Soft, Normal Bowel Sounds. absent: Tenderness - Extremities Exam Extremities Exam: Normal Inspection - Neurological Exam Neurological Exam: Alert, Awake Additional comments: Patient has tremors bilateral upper extremities - Skin Skin Exam: Normal Color Assessment and Plan - Assessment and Plan (Free Text) Assessment: Alcohol Abuse - Alcohol Level (10/24/17): 365 - Head CT: No acute intracranial hemorrhage. 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 Suspect minimal chronic periventricular white matter ischemic changes. Mild moderate generalized volume loss. Progressive opacification melenedz paranasal sinuses as described. - Psych Consult: Dr. Onofre --> help appreciated - Ativan 1mg q6h - Ativan 2mg q4prn - Librium 25mg po q8h - Clonidine .1mg q6prn systolic b/p >160 - NS @100cc/hr - Folic Acid 1mg po daily - Thiamine 100mg po daily Altered Mental Status - poor historian - Head CT: No acute intracranial hemorrhage. 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 Suspect minimal chronic periventricular white matter ischemic changes. Mild moderate generalized volume loss. Progressive opacification melendez paranasal sinuses as described. Stool Occult Positive - H/H: 15.5/44.8 - Protonix 40mg IV daily - GI Consult: Dr. Mendoza --> help appreciated UDS + - UDS + opiates - Psych Consult: Dr. Onofre --> help appreciated Elevated Liver Enzymes - AST/ALT: 98/84 - Hepatitis C antibody + - HIV negative Hypokalemia - K 3.1 - Repleated Elevated Lactic Acid - ID Consult: Dr. Gatica --> help appreciated - Lactic Acid 2.1 - Vancomycin q24h - Vanco Troph 9.1 (10/26/17) - Zosyn 3.375gm q8h - Florastor 250mg daily History of HTN - Cardiology Consult: Dr. Moyer --> help appreciated - EKG: Sinus tach @100bpm History COPD - Chest Xray: Re- demonstrated are hyperinflation changes both lungs ; rule out underlying COPD or emphysema. - Pulm Consult: Dr. Wright --> help appreciated Prophylaxis - SCDs - VTE contraindication - Protonix 40mg IV daily All medical management as per Dr. Atwood
[2017-10-26] MEDS: Saccharomyces Boulardi 250 mg Cap PO SCH ×4 (10:07→22:07)
[2017-10-26] MEDS: Enoxaparin 40 mg Syringe SC SCH (10:11)
[2017-10-26 10:14] LABS: HEPATITIS C ANTIBODY REACTIVE (NEGATIVE)
[2017-10-26 11:07] LABS: BASO % 0.3 % (0.0-2.0); EOS % 0.1 % (0.0-4.0); LYMPH # 0.8 K/uL (1.0-4.3); LYMPH % 7.9 % (20.0-40.0); MEAN CELL VOLUME 100.2 fL (80.0-94.0); MEAN CORPUSCULAR HEMOGLOBIN 34.7 pg (27.0-31.0); MEAN CORPUSCULAR HGB CONC 34.7 g/dL (33.0-37.0); MEAN PLATELET VOLUME 8.6 fL (7.2-11.7); MONO # 0.8 K/uL (0.0-0.8); MONO % 8.4 % (0.0-10.0); NEUT # 8.4 K/uL (1.8-7.0); NEUT % 83.3 % (50.0-75.0); PLATELET COUNT 145 K/uL (130-400); RBC 4.47 Mil/uL (4.40-5.90)
[2017-10-26 11:08] LABS: HEMOGLOBIN 15.5 g/dL (12.0-18.0)
[2017-10-26 12:02] LABS: ALB/GLOB RATIO 1.1 (1.0-2.1); ALBUMIN 4.3 g/dL (3.5-5.0); ALT/SGPT 84 U/L (21-72); AST/SGOT 98 U/L (17-59); BLOOD UREA NITROGEN 14 mg/dL (9-20); CALCIUM 9.5 mg/dl (8.6-10.4); GFR AFRICAN-AMERICAN > 60; GFR NON-AFRICAN AMERICAN > 60
[2017-10-26] MEDS: Sodium Chloride 0.9% 1,000 ML IV SCH ×2 (12:23→22:08)
[2017-10-26 12:40] LABS: LYMPHOCYTE 7 % (20-40); MONOCYTE 9 % (0-10); NEUTROPHIL 84 % (50-75); TOTAL CELLS COUNTED 100
[2017-10-26 12:42] LABS: PLATELET ESTIMATE NORMAL (NORMAL)
--- NOTE | 2017-10-26 12:46 | CP.PCM.PN ---
Subjective - Date & Time of Evaluation Date of Evaluation: 10/26/17 Time of Evaluation: 09:00 - Subjective Subjective: improving await final cultures Objective - Vital Signs/Intake and Output Vital Signs (last 24 hours): Temp Pulse Resp BP Pulse Ox 97.8 F 91 H 20 150/100 H 96 10/26/17 00:00 10/26/17 00:00 10/26/17 00:00 10/26/17 09:18 10/26/17 00:00 - Medications Medications: Current Medications Aspirin (Aspirin) 325 mg PO DAILY [facility] Last Admin: 10/26/17 10:07 Dose: 325 mg Chlordiazepoxide (Librium) 25 mg PO Q8H [facility] PRN Reason: Taper Stop: 10/28/17 23:59 Last Admin: 10/26/17 08:30 Dose: 25 mg Chlordiazepoxide (Librium) 25 mg PO Q4H PRN PRN Reason: Alcohol Withdrawal Last Admin: 10/26/17 06:41 Dose: 25 mg Clonidine HCl (Catapres) 0.1 mg PO Q6 PRN PRN Reason: Systolic Blood Pressure Enoxaparin Sodium (Lovenox) 40 mg SC DAILY [facility] Last Admin: 10/26/17 10:11 Dose: 40 mg Folic Acid (Folic Acid) 1 mg PO DAILY [facility] Last Admin: 10/26/17 12:21 Dose: Not Given Vancomycin/Sodium Chloride (Vancomycin 1 Gm/Ns 200 Ml) 1 gm in 200 mls @ 166.7 mls/hr IVPB Q24H [facility] PRN Reason: Protocol Stop: 10/30/17 00:01 Last Admin: 10/26/17 02:01 Dose: 166.7 mls/hr Piperacillin Sod/Tazobactam (Sod 3.375 gm/ Sodium Chloride) 100 mls @ 200 mls/ hr IVPB Q8H [facility] Last Admin: 10/26/17 08:20 Dose: 200 mls/hr Sodium Chloride (Sodium Chloride 0.9%) 1,000 mls @ 100 mls/hr IV .Q10H [facility] Last Admin: 10/26/17 12:23 Dose: 100 mls/hr Lorazepam (Ativan) 2 mg IVP Q4H PRN PRN Reason: Symptoms of alcohol withdrawl Last Admin: 10/25/17 20:20 Dose: 2 mg Lorazepam (Ativan) 1 mg IVP Q6H [facility] Last Admin: 10/26/17 12:21 Dose: Not Given Pantoprazole Sodium (Protonix Inj) 40 mg IVP DAILY [facility] Last Admin: 10/26/17 10:08 Dose: 40 mg Saccharomyces Boulardii (Florastor) 250 mg PO BID [facility] Last Admin: 10/26/17 12:21 Dose: Not Given Thiamine HCl (Vitamin B1 Tab) 100 mg PO DAILY [facility] Last Admin: 10/26/17 12:25 Dose: Not Given - Labs Labs: 10/26/17 10:58 10/26/17 10:58 PT 11.1 SECONDS (9.7-12.2) 10/24/17 14:55 INR 1.0 10/24/17 14:55 APTT 33 SECONDS (21-34) 10/24/17 14:55 - Constitutional Appears: Confused, Cachectic, Chronically Ill - Head Exam Head Exam: NORMOCEPHALIC - Eye Exam Eye Exam: absent: Scleral icterus - ENT Exam ENT Exam: Mucous Membranes Dry - Neck Exam Neck Exam: absent: Lymphadenopathy - Respiratory Exam Respiratory Exam: Decreased Breath Sounds - Cardiovascular Exam Cardiovascular Exam: REGULAR RHYTHM - GI/Abdominal Exam GI & Abdominal Exam: Distended Assessment and Plan (1) Alcohol intoxication Status: Acute (2) Dehydration Status: Acute (3) Elevated CK Status: Acute (4) Elevated lactic acid level Status: Acute (5) Guaiac positive stools Status: Acute (6) Heat exhaustion Status: Acute (7) Hypokalemia Status: Acute (8) Agitation Status: Acute (9) Drug dependence Status: Acute (10) Opioid use disorder, severe, dependence Status: Acute
[2017-10-26] MEDS ORDERED: Potassium Chloride 20 mEq ER Tab PO ONE (13:38)
[2017-10-26 14:36] LABS: PROTHROMBIN TIME 11.2 SECONDS (9.7-12.2)
--- NOTE | 2017-10-26 15:40 | CP.PCM.PN ---
Subjective - Date & Time of Evaluation Date of Evaluation: 10/26/17 Time of Evaluation: 09:45 - Subjective Subjective: clinically same Objective - Vital Signs/Intake and Output Vital Signs (last 24 hours): Temp Pulse Resp BP Pulse Ox 98.2 F 95 H 20 150/100 H 95 10/26/17 09:18 10/26/17 09:18 10/26/17 09:18 10/26/17 09:18 10/26/17 09:18 - Medications Medications: Current Medications Aspirin (Aspirin) 325 mg PO DAILY [facility] Last Admin: 10/26/17 14:55 Dose: Not Given Chlordiazepoxide (Librium) 25 mg PO Q8H [facility] PRN Reason: Taper Stop: 10/28/17 23:59 Last Admin: 10/26/17 08:30 Dose: 25 mg Clonidine HCl (Catapres) 0.1 mg PO Q6 PRN PRN Reason: Systolic Blood Pressure Enoxaparin Sodium (Lovenox) 40 mg SC DAILY [facility] Last Admin: 10/26/17 10:11 Dose: 40 mg Folic Acid (Folic Acid) 1 mg PO DAILY [facility] Last Admin: 10/26/17 13:49 Dose: 1 mg Vancomycin/Sodium Chloride (Vancomycin 1 Gm/Ns 200 Ml) 1 gm in 200 mls @ 166.7 mls/hr IVPB Q24H [facility] PRN Reason: Protocol Stop: 10/30/17 00:01 Last Admin: 10/26/17 02:01 Dose: 166.7 mls/hr Piperacillin Sod/Tazobactam (Sod 3.375 gm/ Sodium Chloride) 100 mls @ 200 mls/ hr IVPB Q8H [facility] Last Admin: 10/26/17 13:35 Dose: 200 mls/hr Sodium Chloride (Sodium Chloride 0.9%) 1,000 mls @ 100 mls/hr IV .Q10H [facility] Last Admin: 10/26/17 12:23 Dose: 100 mls/hr Lorazepam (Ativan) 2 mg IVP Q4H PRN PRN Reason: Symptoms of alcohol withdrawl Last Admin: 10/25/17 20:20 Dose: 2 mg Lorazepam (Ativan) 1 mg IVP Q6H [facility] Last Admin: 10/26/17 12:21 Dose: Not Given Pantoprazole Sodium (Protonix Inj) 40 mg IVP DAILY [facility] Last Admin: 10/26/17 10:08 Dose: 40 mg Saccharomyces Boulardii (Florastor) 250 mg PO BID [facility] Last Admin: 10/26/17 13:49 Dose: 250 mg Thiamine HCl (Vitamin B1 Tab) 100 mg PO DAILY [facility] Last Admin: 10/26/17 13:50 Dose: 100 mg - Labs Labs: 10/26/17 10:58 10/26/17 10:58 PT 11.2 SECONDS (9.7-12.2) 10/26/17 14:23 INR 1.0 10/26/17 14:23 APTT 34 SECONDS (21-34) 10/26/17 14:23 - Constitutional Appears: Well - Head Exam Head Exam: ATRAUMATIC, NORMAL INSPECTION, NORMOCEPHALIC - Eye Exam Eye Exam: EOMI, Normal appearance, PERRL Pupil Exam: NORMAL ACCOMODATION, PERRL - ENT Exam ENT Exam: Mucous Membranes Moist, Normal Exam - Neck Exam Neck Exam: Full ROM, Normal Inspection. absent: Lymphadenopathy - Respiratory Exam Respiratory Exam: Decreased Breath Sounds - Cardiovascular Exam Cardiovascular Exam: REGULAR RHYTHM, +S1, +S2 - GI/Abdominal Exam GI & Abdominal Exam: Soft, Diminished Bowel Sounds - Rectal Exam Rectal Exam: Deferred
--- NOTE | 2017-10-26 23:45 | CARD ---
APPROVED REPORT EKG Measurement Heart [id number] MI [id number] <Conclusion> Sinus rhythm Prolonged QT Abnormal ECG
[2017-10-27] MEDS: Vancomycin 1 gm/NS 200 ml 1 GM/200 ML BAG IVPB SCH ×2 (00:26→23:56)
[2017-10-27] MEDS: Piperacillin/Tazobact 3.375 GM in Sodium Chloride 0.9% 100 ML IVPB SCH ×3 (05:54→22:01)
[2017-10-27 07:01] LABS: BASO % 0.2 % (0.0-2.0); EOS % 0.1 % (0.0-4.0); HEMOGLOBIN 13.7 g/dL (12.0-18.0); LYMPH % 9.8 % (20.0-40.0); MEAN CELL VOLUME 100.8 fL (80.0-94.0); MEAN CORPUSCULAR HEMOGLOBIN 35.2 pg (27.0-31.0); MEAN CORPUSCULAR HGB CONC 34.9 g/dL (33.0-37.0); MONO # 0.6 K/uL (0.0-0.8); NEUT # 8.6 K/uL (1.8-7.0); NEUT % 83.9 % (50.0-75.0); NRBC % 0.1 % (0.0-2.0); PLATELET COUNT 125 K/uL (130-400); RBC 3.89 Mil/uL (4.40-5.90); RED CELL DISTRIBUTION WIDTH 13.1 % (11.5-14.5); WHITE BLOOD COUNT 10.2 K/uL (4.8-10.8)
[2017-10-27 07:52] LABS: ALBUMIN 3.5 g/dL (3.5-5.0); ALT/SGPT 65 U/L (21-72); AST/SGOT 67 U/L (17-59); BLOOD UREA NITROGEN 16 mg/dL (9-20); CALCIUM 8.8 mg/dl (8.6-10.4); GFR AFRICAN-AMERICAN > 60; GFR NON-AFRICAN AMERICAN > 60
[2017-10-27 10:05] LABS: BANDS 1 % (0-2); EOSINOPHIL 1 % (0-4); LYMPHOCYTE 10 % (20-40); MONOCYTE 5 % (0-10); NEUTROPHIL 83 % (50-75); PLATELET ESTIMATE SLIGHTLY DECREASED (NORMAL); TOTAL CELLS COUNTED 100
[2017-10-27] MEDS: Potassium Chloride 20 mEq ER Tab PO SCH (10:07)
[2017-10-27] MEDS: Sodium Chloride 0.9% 1,000 ML IV SCH ×2 (10:08→18:04)
[2017-10-27] MEDS: Saccharomyces Boulardi 250 mg Cap PO SCH ×2 (10:08→18:07)
[2017-10-27] MEDS: Magnesium Sulfate 1 gm in D5W 1 GM/100 ML BAG IVPB SCH ×2 (12:21→13:44)
--- NOTE | 2017-10-27 14:39 | CP.PCM.PN ---
Subjective - Date & Time of Evaluation Date of Evaluation: 10/27/17 Time of Evaluation: 10:00 - Subjective Subjective: clinically same Objective - Vital Signs/Intake and Output Vital Signs (last 24 hours): Temp Pulse Resp BP Pulse Ox 97.5 F L 96 H 20 157/118 H 94 L 10/27/17 08:00 10/27/17 08:00 10/27/17 08:00 10/27/17 08:00 10/27/17 08:00 Intake and Output: 10/27/17 10/27/17 06:59 18:59 Intake Total 2020 Balance 2020 - Medications Medications: Current Medications Aspirin (Aspirin) 325 mg PO DAILY [facility] Last Admin: 10/26/17 14:55 Dose: Not Given Chlordiazepoxide (Librium) 25 mg PO Q12H [facility] PRN Reason: Taper Stop: 10/28/17 23:59 Last Admin: 10/27/17 12:50 Dose: 25 mg Clonidine HCl (Catapres) 0.1 mg PO Q6 PRN PRN Reason: Systolic Blood Pressure Last Admin: 10/27/17 08:45 Dose: 0.1 mg Enoxaparin Sodium (Lovenox) 40 mg SC DAILY [facility] Last Admin: 10/26/17 10:11 Dose: 40 mg Folic Acid (Folic Acid) 1 mg PO DAILY [facility] Last Admin: 10/27/17 10:07 Dose: 1 mg Vancomycin/Sodium Chloride (Vancomycin 1 Gm/Ns 200 Ml) 1 gm in 200 mls @ 166.7 mls/hr IVPB Q24H [facility] PRN Reason: Protocol Stop: 10/30/17 00:01 Last Admin: 10/27/17 00:26 Dose: 166.7 mls/hr Piperacillin Sod/Tazobactam (Sod 3.375 gm/ Sodium Chloride) 100 mls @ 200 mls/ hr IVPB Q8H [facility] Last Admin: 10/27/17 14:04 Dose: 200 mls/hr Sodium Chloride (Sodium Chloride 0.9%) 1,000 mls @ 100 mls/hr IV .Q10H [facility] Last Admin: 10/27/17 10:08 Dose: Not Given Lorazepam (Ativan) 2 mg IVP Q4H PRN PRN Reason: Symptoms of alcohol withdrawl Last Admin: 10/25/17 20:20 Dose: 2 mg Lorazepam (Ativan) 1 mg IVP Q6H [facility] Last Admin: 10/27/17 11:28 Dose: 1 mg Pantoprazole Sodium (Protonix Inj) 40 mg IVP DAILY [facility] Last Admin: 10/27/17 10:07 Dose: 40 mg Potassium Chloride (K-Dur 20 Meq Er Tab) 20 meq PO DAILY [facility] Last Admin: 10/27/17 10:07 Dose: 20 meq Saccharomyces Boulardii (Florastor) 250 mg PO BID [facility] Last Admin: 10/27/17 10:08 Dose: 250 mg Thiamine HCl (Vitamin B1 Tab) 100 mg PO DAILY [facility] Last Admin: 10/27/17 10:07 Dose: 100 mg - Labs Labs: 10/27/17 06:51 10/27/17 06:51 PT 11.2 SECONDS (9.7-12.2) 10/26/17 14:23 INR 1.0 10/26/17 14:23 APTT 34 SECONDS (21-34) 10/26/17 14:23 - Constitutional Appears: Well - Head Exam Head Exam: ATRAUMATIC, NORMAL INSPECTION, NORMOCEPHALIC - Eye Exam Eye Exam: EOMI, Normal appearance, PERRL Pupil Exam: NORMAL ACCOMODATION, PERRL - ENT Exam ENT Exam: Mucous Membranes Moist, Normal Exam - Neck Exam Neck Exam: Full ROM, Normal Inspection. absent: Lymphadenopathy - Respiratory Exam Respiratory Exam: Decreased Breath Sounds - Cardiovascular Exam Cardiovascular Exam: REGULAR RHYTHM, +S1, +S2 - GI/Abdominal Exam GI & Abdominal Exam: Soft, Diminished Bowel Sounds - Rectal Exam Rectal Exam: Deferred
--- NOTE | 2017-10-27 15:14 | CP.PCM.CON ---
<Mike Atwood - Last Filed: 10/27/17 15:18> History of Present Illness - History of Present Illness History of Present Illness: PGY5 Initial GI Consult ' Fletcher Barron is 62M w/ hx of alcohol abuse, HTN, COPD who presented to the ED after being found altered in front of a liquor store. Pt was not able to give any appropriate response and was altered. All information was obtained from the chart and from staff. Pt is being actively treated for alcohol withdrawl and cellultis. Pt has been previously admitted for similiar reasons. Pt was found to have a +FOBT. Unknown endoscopy hx or GI bleed. Social History: Homeless, unemployed, Patient stated that he was residing at the [facility] but indicates that he is no longer a resident there. Medical History: HT, COPD Surgical Hx: unknown Family hx: unknown ROS: 12 point ROS conducted, neg other than above Past Patient History - Infectious Disease Hx of Infectious Diseases: None - Past Medical History & Family History Past Medical History?: Yes - Past Social History Smoking Status: Smoker Currrent Status Unknown - CARDIAC Hx Hypertension: Yes - PULMONARY Hx Emphysema: Yes - NEUROLOGICAL Hx Seizures: No - HEMATOLOGICAL/ONCOLOGICAL Hx Human Immunodeficiency Virus (HIV): No - MUSCULOSKELETAL/RHEUMATOLOGICAL Hx Falls: Yes Hx Osteoporosis: Yes - GENITOURINARY/GYNECOLOGICAL Hx Sexually Transmitted Disorders: No - PSYCHIATRIC Hx Substance Use: Yes - SURGICAL HISTORY Hx Surgeries: No - ANESTHESIA Hx Anesthesia: No Hx Anesthesia Reactions: No Meds Allergies/Adverse Reactions: Allergies Allergy/AdvReac Type Severity Reaction Status Date / Time No Known Allergies Allergy Verified 02/13/17 09:49 - Medications Medications: Current Medications Aspirin (Aspirin) 325 mg PO DAILY [facility] Last Admin: 10/26/17 14:55 Dose: Not Given Chlordiazepoxide (Librium) 25 mg PO Q12H [facility] PRN Reason: Taper Stop: 10/28/17 23:59 Last Admin: 10/27/17 12:50 Dose: 25 mg Clonidine HCl (Catapres) 0.1 mg PO Q6 PRN PRN Reason: Systolic Blood Pressure Last Admin: 10/27/17 08:45 Dose: 0.1 mg Enoxaparin Sodium (Lovenox) 40 mg SC DAILY [facility] Last Admin: 10/26/17 10:11 Dose: 40 mg Folic Acid (Folic Acid) 1 mg PO DAILY [facility] Last Admin: 10/27/17 10:07 Dose: 1 mg Vancomycin/Sodium Chloride (Vancomycin 1 Gm/Ns 200 Ml) 1 gm in 200 mls @ 166.7 mls/hr IVPB Q24H [facility] PRN Reason: Protocol Stop: 10/30/17 00:01 Last Admin: 10/27/17 00:26 Dose: 166.7 mls/hr Piperacillin Sod/Tazobactam (Sod 3.375 gm/ Sodium Chloride) 100 mls @ 200 mls/ hr IVPB Q8H [facility] Last Admin: 10/27/17 14:04 Dose: 200 mls/hr Sodium Chloride (Sodium Chloride 0.9%) 1,000 mls @ 100 mls/hr IV .Q10H [facility] Last Admin: 10/27/17 10:08 Dose: Not Given Lorazepam (Ativan) 2 mg IVP Q4H PRN PRN Reason: Symptoms of alcohol withdrawl Last Admin: 10/25/17 20:20 Dose: 2 mg Lorazepam (Ativan) 1 mg IVP Q6H [facility] Last Admin: 10/27/17 11:28 Dose: 1 mg Pantoprazole Sodium (Protonix Inj) 40 mg IVP DAILY [facility] Last Admin: 10/27/17 10:07 Dose: 40 mg Potassium Chloride (K-Dur 20 Meq Er Tab) 20 meq PO DAILY [facility] Last Admin: 10/27/17 10:07 Dose: 20 meq Saccharomyces Boulardii (Florastor) 250 mg PO BID [facility] Last Admin: 10/27/17 10:08 Dose: 250 mg Thiamine HCl (Vitamin B1 Tab) 100 mg PO DAILY [facility] Last Admin: 10/27/17 10:07 Dose: 100 mg Physical Exam - Constitutional Appears: Confused - Head Exam Head Exam: ATRAUMATIC, NORMOCEPHALIC - Eye Exam Eye Exam: Normal appearance - ENT Exam ENT Exam: Mucous Membranes Moist, Normal Exam - Neck Exam Neck exam: Positive for: Normal Inspection - Respiratory Exam Respiratory Exam: Clear to Auscultation Bilateral, NORMAL BREATHING PATTERN. absent: Rales, Rhonchi, Wheezes, Respiratory Distress - Cardiovascular Exam Cardiovascular Exam: REGULAR RHYTHM, +S1, +S2 - GI/Abdominal Exam GI & Abdominal Exam: Normal Bowel Sounds, Soft. absent: Distended, Firm, Guarding, Organomegaly, Rebound, Rigid - Extremities Exam Extremities exam: Negative for: joint swelling, pedal edema - Neurological Exam Neurological exam: Altered - Psychiatric Exam Additional comments: could not assess - Skin Skin Exam: Dry, Intact, Normal Color, Warm Results - Vital Signs Recent Vital Signs: Last Vital Signs Temp 97.5 F L 10/27/17 08:00 Pulse 109 H 10/27/17 13:33 Resp 20 10/27/17 08:00 BP 157/118 H 10/27/17 08:00 Pulse Ox 94 L 10/27/17 08:00 - Labs Result Diagrams: 10/27/17 06:51 10/27/17 06:51 Labs: Laboratory Results - last 24 hr 10/27/17 10/27/17 06:51 06:51 WBC 10.2 RBC 3.89 L Hgb 13.7 Hct 39.2 MCV 100.8 H MCH 35.2 H MCHC 34.9 RDW 13.1 Plt Count 125 L D MPV 9.0 Neut % (Auto) 83.9 H Lymph % (Auto) 9.8 L W[place]er % (Auto) 6.0 Eos % (Auto) 0.1 Baso % (Auto) 0.2 Neut # (Auto) 8.6 H Lymph # (Auto) 1.0 W[place]er # (Auto) 0.6 Eos # (Auto) 0.0 Baso # (Auto) 0.0 Neutrophils % (Manual) 83 H Band Neutrophils % 1 Lymphocytes % (Manual) 10 L Monocytes % (Manual) 5 Eosinophils % (Manual) 1 Platelet Estimate Slightly decreased L Macrocytosis (manual) Slight Sodium 140 Potassium 3.4 L Chloride 107 Carbon Dioxide 22 Anion Gap 15 BUN 16 Creatinine 0.7 L Est GFR ( Amer) > 60 Est GFR (Non-Af Amer) > 60 Random Glucose 93 Calcium 8.8 Phosphorus 3.1 Magnesium 1.5 L Total Bilirubin 1.8 H AST 67 H D ALT 65 Alkaline Phosphatase 83 Total Protein 6.8 Albumin 3.5 Globulin 3.3 Albumin/Globulin Ratio 1.0 Assessment & Plan - Assessment and Plan (Free Text) Assessment: Fletcher Barron is a 62M w/ hx of alcohol abuse who present altered and intoxicated in the ER ' + FOBT Alcohol abuse Elevated LFTs 2/2 ETOH Plan: -[place] protocol -recommend colonoscopy as an outpt -no signs of active bleeding -vitals stable -continue 1:1 -watch for refeeding syndrome -check b12, phos, folate levels -recommend multivitamin supplementation D/W Dr. Yu <Sadie Yu - Last Filed: 10/27/17 16:04> Meds - Medications Medications: Current Medications Aspirin (Aspirin) 325 mg PO DAILY [facility] Last Admin: 10/26/17 14:55 Dose: Not Given Chlordiazepoxide (Librium) 25 mg PO Q12H [facility] PRN Reason: Taper Stop: 10/28/17 23:59 Last Admin: 10/27/17 12:50 Dose: 25 mg Clonidine HCl (Catapres) 0.1 mg PO Q6 PRN PRN Reason: Systolic Blood Pressure Last Admin: 10/27/17 08:45 Dose: 0.1 mg Enoxaparin Sodium (Lovenox) 40 mg SC DAILY [facility] Last Admin: 10/26/17 10:11 Dose: 40 mg Folic Acid (Folic Acid) 1 mg PO DAILY [facility] Last Admin: 10/27/17 10:07 Dose: 1 mg Vancomycin/Sodium Chloride (Vancomycin 1 Gm/Ns 200 Ml) 1 gm in 200 mls @ 166.7 mls/hr IVPB Q24H [facility] PRN Reason: Protocol Stop: 10/30/17 00:01 Last Admin: 10/27/17 00:26 Dose: 166.7 mls/hr Piperacillin Sod/Tazobactam (Sod 3.375 gm/ Sodium Chloride) 100 mls @ 200 mls/ hr IVPB Q8H [facility] Last Admin: 10/27/17 14:04 Dose: 200 mls/hr Sodium Chloride (Sodium Chloride 0.9%) 1,000 mls @ 100 mls/hr IV .Q10H [facility] Last Admin: 10/27/17 10:08 Dose: Not Given Lorazepam (Ativan) 2 mg IVP Q4H PRN PRN Reason: Symptoms of alcohol withdrawl Last Admin: 10/25/17 20:20 Dose: 2 mg Lorazepam (Ativan) 1 mg IVP Q6H [facility] Last Admin: 10/27/17 11:28 Dose: 1 mg Pantoprazole Sodium (Protonix Inj) 40 mg IVP DAILY [facility] Last Admin: 10/27/17 10:07 Dose: 40 mg Potassium Chloride (K-Dur 20 Meq Er Tab) 20 meq PO DAILY [facility] Last Admin: 10/27/17 10:07 Dose: 20 meq Saccharomyces Boulardii (Florastor) 250 mg PO BID [facility] Last Admin: 10/27/17 10:08 Dose: 250 mg Thiamine HCl (Vitamin B1 Tab) 100 mg PO DAILY [facility] Last Admin: 10/27/17 10:07 Dose: 100 mg Results - Vital Signs Recent Vital Signs: Last Vital Signs Temp 98.0 F 10/27/17 15:25 Pulse 89 10/27/17 15:25 Resp 21 10/27/17 15:25 BP 144/90 10/27/17 15:25 Pulse Ox 95 10/27/17 15:25 - Labs Result Diagrams: 10/27/17 06:51 10/27/17 06:51 Labs: Laboratory Results - last 24 hr 10/27/17 10/27/17 06:51 06:51 WBC 10.2 RBC 3.89 L Hgb 13.7 Hct 39.2 MCV 100.8 H MCH 35.2 H MCHC 34.9 RDW 13.1 Plt Count 125 L D MPV 9.0 Neut % (Auto) 83.9 H Lymph % (Auto) 9.8 L Wagoner % (Auto) 6.0 Eos % (Auto) 0.1 Baso % (Auto) 0.2 Neut # (Auto) 8.6 H Lymph # (Auto) 1.0 W[place]er # (Auto) 0.6 Eos # (Auto) 0.0 Baso # (Auto) 0.0 Neutrophils % (Manual) 83 H Band Neutrophils % 1 Lymphocytes % (Manual) 10 L Monocytes % (Manual) 5 Eosinophils % (Manual) 1 Platelet Estimate Slightly decreased L Macrocytosis (manual) Slight Sodium 140 Potassium 3.4 L Chloride 107 Carbon Dioxide 22 Anion Gap 15 BUN 16 Creatinine 0.7 L Est GFR ( Amer) > 60 Est GFR (Non-Af Amer) > 60 Random Glucose 93 Calcium 8.8 Phosphorus 3.1 Magnesium 1.5 L Total Bilirubin 1.8 H AST 67 H D ALT 65 Alkaline Phosphatase 83 Total Protein 6.8 Albumin 3.5 Globulin 3.3 Albumin/Globulin Ratio 1.0 Attending/Attestation - Attestation I have personally seen and examined this patient.: Yes I have fully participated in the care of the patient.: Yes I have reviewed all pertinent clinical information: Yes Notes (Text): 10/27/17 15:59 This is a 62 yr old M admitted with alcohol intoxication and fobt + with Hb of 13.6 g/dl and no s/s of GI bleeding. Elevated LFt due to alcohol abuse. Encourage alcohol cessation and diet as tolerated. Thank you for letting us participate in the care of your patient.
[2017-10-28] MEDS: Sodium Chloride 0.9% 1,000 ML IV SCH ×4 (03:15→23:15)
[2017-10-28] MEDS: Piperacillin/Tazobact 3.375 GM in Sodium Chloride 0.9% 100 ML IVPB SCH ×3 (05:35→22:07)
--- NOTE | 2017-10-28 07:18 | CP.PCM.PN ---
Subjective - Date & Time of Evaluation Date of Evaluation: 10/28/17 Time of Evaluation: :18 - Subjective Subjective: PGY2 Medicine Note for Dr. Phil Atwood Patient seen and examined this morning. Patient refused to wake up this morning. Held librium dose. re-interviewed in the afternoon. Complained of a mild headache but no other complaints. ROS otherwise negative. Objective - Vital Signs/Intake and Output Vital Signs (last 24 hours): Temp Pulse Resp BP Pulse Ox 98.1 F 98 H 20 145/94 H 98 10/27/17 23:45 10/28/17 01:00 10/27/17 23:45 10/27/17 23:45 10/27/17 23:45 Intake and Output: 10/28/17 10/28/17 06:59 18:59 Intake Total 1100 Balance 1100 - Medications Medications: Current Medications Aspirin (Aspirin) 325 mg PO DAILY [facility] Last Admin: 10/26/17 14:55 Dose: Not Given Chlordiazepoxide (Librium) 25 mg PO Q24H [facility] PRN Reason: Taper Stop: 10/28/17 23:59 Last Admin: 10/27/17 23:56 Dose: 25 mg Clonidine HCl (Catapres) 0.1 mg PO Q6 PRN PRN Reason: Systolic Blood Pressure Last Admin: 10/27/17 08:45 Dose: 0.1 mg Enoxaparin Sodium (Lovenox) 40 mg SC DAILY [facility] Last Admin: 10/26/17 10:11 Dose: 40 mg Folic Acid (Folic Acid) 1 mg PO DAILY [facility] Last Admin: 10/27/17 10:07 Dose: 1 mg Vancomycin/Sodium Chloride (Vancomycin 1 Gm/Ns 200 Ml) 1 gm in 200 mls @ 166.7 mls/hr IVPB Q24H [facility] PRN Reason: Protocol Stop: 10/30/17 00:01 Last Admin: 10/27/17 23:56 Dose: 166.7 mls/hr Piperacillin Sod/Tazobactam (Sod 3.375 gm/ Sodium Chloride) 100 mls @ 200 mls/ hr IVPB Q8H [facility] Last Admin: 10/28/17 05:35 Dose: 200 mls/hr Sodium Chloride (Sodium Chloride 0.9%) 1,000 mls @ 100 mls/hr IV .Q10H [facility] Last Admin: 10/28/17 03:15 Dose: Not Given Lorazepam (Ativan) 2 mg IVP Q4H PRN PRN Reason: Symptoms of alcohol withdrawl Last Admin: 10/27/17 20:42 Dose: 2 mg Lorazepam (Ativan) 1 mg IVP Q6H [facility] Last Admin: 10/28/17 04:49 Dose: 1 mg Pantoprazole Sodium (Protonix Inj) 40 mg IVP DAILY [facility] Last Admin: 10/27/17 10:07 Dose: 40 mg Potassium Chloride (K-Dur 20 Meq Er Tab) 20 meq PO DAILY [facility] Last Admin: 10/27/17 10:07 Dose: 20 meq Saccharomyces Boulardii (Florastor) 250 mg PO BID [facility] Last Admin: 10/27/17 18:07 Dose: 250 mg Thiamine HCl (Vitamin B1 Tab) 100 mg PO DAILY [facility] Last Admin: 10/27/17 10:07 Dose: 100 mg - Labs Labs: 10/27/17 06:51 10/27/17 06:51 PT 11.2 SECONDS (9.7-12.2) 10/26/17 14:23 INR 1.0 10/26/17 14:23 APTT 34 SECONDS (21-34) 10/26/17 14:23 - Constitutional Appears: Unkempt, Chronically Ill, Other (lethargic) - Head Exam Head Exam: ATRAUMATIC - Eye Exam Eye Exam: EOMI, Normal appearance. absent: Scleral icterus - ENT Exam ENT Exam: Mucous Membranes Moist - Neck Exam Neck Exam: absent: Lymphadenopathy - Respiratory Exam Respiratory Exam: Clear to Ausculation Bilateral, NORMAL BREATHING PATTERN. absent: Accessory Muscle Use - Cardiovascular Exam Cardiovascular Exam: REGULAR RHYTHM, +S1, +S2 - GI/Abdominal Exam GI & Abdominal Exam: Soft - Extremities Exam Extremities Exam: absent: Calf Tenderness, Pedal Edema - Neurological Exam Neurological Exam: Alert, Awake, Oriented x3 Additional comments: mild hand tremors noted b/l in afternoon - Psychiatric Exam Psychiatric exam: Flat Affect (very lethargic) - Skin Skin Exam: Warm Assessment and Plan - Assessment and Plan (Free Text) Plan: Alcohol Abuse - Alcohol Level (10/24/17): 365 - Head CT: No acute intracranial hemorrhage. 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 Suspect minimal chronic periventricular white matter ischemic changes. Mild moderate generalized volume loss. Progressive opacification melendez paranasal sinuses as described. - Psych Consult: Dr. Onofre --> help appreciated - Librium 25mg po q8h - had to hold afternoon dose to patient refusal to wake up - Clonidine .1mg q6prn systolic b/p >160 - NS @100cc/hr - Folic Acid 1mg po daily - Thiamine 100mg po daily Altered Mental Status - poor historian - Head CT: No acute intracranial hemorrhage. 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 Suspect minimal chronic periventricular white matter ischemic changes. Mild moderate generalized volume loss. Progressive opacification melendez paranasal sinuses as described. Stool Occult Positive - H/H: 12.9/37.4 - Protonix 40mg IV daily - GI Consult: Dr. Mendoza --> help appreciated UDS + - UDS + opiates - Psych Consult: Dr. Onofre --> help appreciated Elevated Liver Enzymes - AST/ALT: 64/60 - Hepatitis C antibody + - HIV negative Hypokalemia - K 3.0 - Repleated IV only due to patient sleeping and refusal to wake up Elevated Lactic Acid - ID Consult: Dr. Gatica --> help appreciated - Lactic Acid 2.1 (10/24) - Vancomycin q24h - Vanco Troph 9.1 (10/26/17) - Zosyn 3.375gm q8h - Florastor 250mg daily History of HTN - Cardiology Consult: Dr. Moyer --> help appreciated - EKG: Sinus tach @100bpm History COPD - Chest Xray: Re- demonstrated are hyperinflation changes both lungs ; rule out underlying COPD or emphysema. - Pulm Consult: Dr. Wright --> help appreciated Prophylaxis - SCDs - VTE contraindication - Protonix 40mg IV daily All medical management as per Dr. Phil Montanez Vasu PGY2
[2017-10-28] MEDS: Nitroglycerin 2% Ointment Foilpak UD TOP SCH ×3 (10:52→22:03)
[2017-10-28] MEDS: Saccharomyces Boulardi 250 mg Cap PO SCH ×2 (11:08→18:09)
[2017-10-28] MEDS: Potassium Chloride 20 mEq ER Tab PO SCH (11:08)
[2017-10-28 11:20] LABS: BASO % 0.5 % (0.0-2.0); EOS # 0.1 K/uL (0.0-0.7); EOS % 0.8 % (0.0-4.0); HEMOGLOBIN 12.9 g/dL (12.0-18.0); LYMPH # 1.1 K/uL (1.0-4.3); LYMPH % 12.7 % (20.0-40.0); MEAN CELL VOLUME 100.7 fL (80.0-94.0); MEAN CORPUSCULAR HEMOGLOBIN 34.8 pg (27.0-31.0); MEAN CORPUSCULAR HGB CONC 34.6 g/dL (33.0-37.0); MEAN PLATELET VOLUME 8.9 fL (7.2-11.7); MONO # 0.8 K/uL (0.0-0.8); MONO % 8.7 % (0.0-10.0); NEUT # 6.7 K/uL (1.8-7.0); NEUT % 77.3 % (50.0-75.0); NRBC % 0.1 % (0.0-2.0); RBC 3.71 Mil/uL (4.40-5.90); RED CELL DISTRIBUTION WIDTH 13.3 % (11.5-14.5); WHITE BLOOD COUNT 8.6 K/uL (4.8-10.8)
[2017-10-28 11:43] LABS: ALB/GLOB RATIO 1.1 (1.0-2.1); ALBUMIN 3.4 g/dL (3.5-5.0); ALT/SGPT 60 U/L (21-72); AST/SGOT 64 U/L (17-59); BLOOD UREA NITROGEN 14 mg/dL (9-20); CALCIUM 8.6 mg/dl (8.6-10.4); GFR AFRICAN-AMERICAN > 60; GFR NON-AFRICAN AMERICAN > 60
--- NOTE | 2017-10-28 12:09 | CT ---
PROCEDURE: CT HEAD WITHOUT CONTRAST. HISTORY: lethargy COMPARISON: CT head dated 10/24/2017. TECHNIQUE: Axial computed tomography images were obtained through the head/brain without intravenous contrast. Radiation dose: Total exam DLP = 2108.1 mGy-cm. This CT exam was performed using one or more of the following dose reduction techniques: Automated exposure control, adjustment of the mA and/or kV according to patient size, and/or use of iterative reconstruction technique. FINDINGS: HEMORRHAGE: No intracranial hemorrhage. BRAIN: No mass effect or edema. Mild atrophy. Mild chronic microvascular ischemic changes. VENTRICLES: Unremarkable. No hydrocephalus. CALVARIUM: Unremarkable. PARANASAL SINUSES: Bilateral maxillary sinus mucosal thickening. MASTOID AIR CELLS: Unremarkable as visualized. No inflammatory changes. OTHER FINDINGS: None. IMPRESSION: No acute intracranial pathology. No significant interval change.
--- NOTE | 2017-10-28 16:50 | CP.PCM.PN ---
Subjective - Date & Time of Evaluation Date of Evaluation: 10/28/17 Time of Evaluation: 11:00 - Subjective Subjective: clinically same Objective - Vital Signs/Intake and Output Vital Signs (last 24 hours): Temp Pulse Resp BP Pulse Ox 97.8 F 74 20 128/83 99 10/28/17 15:39 10/28/17 15:39 10/28/17 15:39 10/28/17 15:39 10/28/17 15:39 Intake and Output: 10/28/17 10/28/17 06:59 18:59 Intake Total 1100 Balance 1100 - Medications Medications: Current Medications Aspirin (Aspirin) 325 mg PO DAILY [facility] Last Admin: 10/26/17 14:55 Dose: Not Given Chlordiazepoxide (Librium) 25 mg PO Q8 PRN PRN Reason: Anxiety Clonidine HCl (Catapres) 0.1 mg PO Q6 PRN PRN Reason: Systolic Blood Pressure Last Admin: 10/27/17 08:45 Dose: 0.1 mg Enoxaparin Sodium (Lovenox) 40 mg SC DAILY [facility] Last Admin: 10/26/17 10:11 Dose: 40 mg Folic Acid (Folic Acid) 1 mg PO DAILY [facility] Last Admin: 10/28/17 14:13 Dose: 1 mg Vancomycin/Sodium Chloride (Vancomycin 1 Gm/Ns 200 Ml) 1 gm in 200 mls @ 166.7 mls/hr IVPB Q24H [facility] PRN Reason: Protocol Stop: 10/30/17 00:01 Last Admin: 10/27/17 23:56 Dose: 166.7 mls/hr Piperacillin Sod/Tazobactam (Sod 3.375 gm/ Sodium Chloride) 100 mls @ 200 mls/ hr IVPB Q8H [facility] Last Admin: 10/28/17 14:13 Dose: 200 mls/hr Sodium Chloride (Sodium Chloride 0.9%) 1,000 mls @ 100 mls/hr IV .Q10H [facility] Last Admin: 10/28/17 14:08 Dose: Not Given Potassium Chloride (Potassium Chloride 20 Meq/100 Ml) 20 meq in 100 mls @ 50 mls/hr IVPB Q2H [facility] Stop: 10/28/17 21:29 Last Admin: 10/28/17 16:27 Dose: 50 mls/hr Nitroglycerin (Nitro-Bid 2% Oint) 1 ea TOP Q6H [facility] Last Admin: 10/28/17 10:52 Dose: 1 ea Pantoprazole Sodium (Protonix Ec Tab) 40 mg PO DAILY [facility] Potassium Chloride (K-Dur 20 Meq Er Tab) 20 meq PO DAILY [facility] Last Admin: 10/28/17 11:08 Dose: Not Given Saccharomyces Boulardii (Florastor) 250 mg PO BID [facility] Last Admin: 10/28/17 11:08 Dose: Not Given Thiamine HCl (Vitamin B1 Tab) 100 mg PO DAILY [facility] Last Admin: 10/28/17 11:09 Dose: Not Given - Labs Labs: 10/28/17 11:13 10/28/17 11:13 PT 11.2 SECONDS (9.7-12.2) 10/26/17 14:23 INR 1.0 10/26/17 14:23 APTT 34 SECONDS (21-34) 10/26/17 14:23 - Constitutional Appears: Well - Head Exam Head Exam: ATRAUMATIC, NORMAL INSPECTION, NORMOCEPHALIC - Eye Exam Eye Exam: EOMI, Normal appearance, PERRL Pupil Exam: NORMAL ACCOMODATION, PERRL - ENT Exam ENT Exam: Mucous Membranes Moist, Normal Exam - Neck Exam Neck Exam: Full ROM, Normal Inspection. absent: Lymphadenopathy - Respiratory Exam Respiratory Exam: Decreased Breath Sounds - Cardiovascular Exam Cardiovascular Exam: REGULAR RHYTHM, +S1, +S2 - GI/Abdominal Exam GI & Abdominal Exam: Soft, Diminished Bowel Sounds - Rectal Exam Rectal Exam: Deferred
--- NOTE | 2017-10-28 18:36 | CP.PCM.PN ---
Subjective - Date & Time of Evaluation Date of Evaluation: 10/28/17 Time of Evaluation: 08:00 - Subjective Subjective: cultures neg thus far will d/c vanco Objective - Vital Signs/Intake and Output Vital Signs (last 24 hours): Temp Pulse Resp BP Pulse Ox 97.8 F 74 20 128/83 99 10/28/17 15:39 10/28/17 15:39 10/28/17 15:39 10/28/17 15:39 10/28/17 15:39 Intake and Output: 10/28/17 10/28/17 06:59 18:59 Intake Total 1100 Balance 1100 - Medications Medications: Current Medications Aspirin (Aspirin) 325 mg PO DAILY [facility] Last Admin: 10/26/17 14:55 Dose: Not Given Chlordiazepoxide (Librium) 25 mg PO Q8 PRN PRN Reason: Anxiety Last Admin: 10/28/17 18:09 Dose: 25 mg Clonidine HCl (Catapres) 0.1 mg PO Q6 PRN PRN Reason: Systolic Blood Pressure Last Admin: 10/27/17 08:45 Dose: 0.1 mg Enoxaparin Sodium (Lovenox) 40 mg SC DAILY [facility] Last Admin: 10/26/17 10:11 Dose: 40 mg Folic Acid (Folic Acid) 1 mg PO DAILY [facility] Last Admin: 10/28/17 14:13 Dose: 1 mg Vancomycin/Sodium Chloride (Vancomycin 1 Gm/Ns 200 Ml) 1 gm in 200 mls @ 166.7 mls/hr IVPB Q24H [facility] PRN Reason: Protocol Stop: 10/30/17 00:01 Last Admin: 10/27/17 23:56 Dose: 166.7 mls/hr Piperacillin Sod/Tazobactam (Sod 3.375 gm/ Sodium Chloride) 100 mls @ 200 mls/ hr IVPB Q8H [facility] Last Admin: 10/28/17 14:13 Dose: 200 mls/hr Sodium Chloride (Sodium Chloride 0.9%) 1,000 mls @ 100 mls/hr IV .Q10H [facility] Last Admin: 10/28/17 18:10 Dose: 100 mls/hr Potassium Chloride (Potassium Chloride 20 Meq/100 Ml) 20 meq in 100 mls @ 50 mls/hr IVPB Q2H [facility] Stop: 10/28/17 21:29 Last Admin: 10/28/17 18:10 Dose: 50 mls/hr Nitroglycerin (Nitro-Bid 2% Oint) 1 ea TOP Q6H [facility] Last Admin: 10/28/17 16:56 Dose: 1 ea Pantoprazole Sodium (Protonix Ec Tab) 40 mg PO DAILY [facility] Potassium Chloride (K-Dur 20 Meq Er Tab) 20 meq PO DAILY [facility] Last Admin: 10/28/17 11:08 Dose: Not Given Saccharomyces Boulardii (Florastor) 250 mg PO BID [facility] Last Admin: 10/28/17 18:09 Dose: 250 mg Thiamine HCl (Vitamin B1 Tab) 100 mg PO DAILY [facility] Last Admin: 10/28/17 11:09 Dose: Not Given - Labs Labs: 10/28/17 11:13 10/28/17 11:13 PT 11.2 SECONDS (9.7-12.2) 10/26/17 14:23 INR 1.0 10/26/17 14:23 APTT 34 SECONDS (21-34) 10/26/17 14:23 - Constitutional Appears: Non-toxic, Confused, Cachectic, Chronically Ill - Head Exam Head Exam: NORMOCEPHALIC - Eye Exam Eye Exam: PERRL - ENT Exam ENT Exam: Mucous Membranes Dry - Neck Exam Neck Exam: absent: Lymphadenopathy - Respiratory Exam Respiratory Exam: Decreased Breath Sounds - Cardiovascular Exam Cardiovascular Exam: REGULAR RHYTHM - GI/Abdominal Exam GI & Abdominal Exam: Distended Assessment and Plan (1) Alcohol intoxication Status: Acute (2) Dehydration Status: Acute (3) Elevated CK Status: Acute (4) Elevated lactic acid level Status: Acute (5) Guaiac positive stools Status: Acute (6) Heat exhaustion Status: Acute (7) Hypokalemia Status: Acute (8) Agitation Status: Acute (9) Drug dependence Status: Acute (10) Opioid use disorder, severe, dependence Status: Acute
[2017-10-29] MEDS: Nitroglycerin 2% Ointment Foilpak UD TOP SCH ×4 (04:50→22:12)
[2017-10-29] MEDS: Piperacillin/Tazobact 3.375 GM in Sodium Chloride 0.9% 100 ML IVPB SCH ×3 (05:44→22:15)
[2017-10-29 07:03] LABS: BASO # 0.1 K/uL (0.0-0.2); BASO % 0.6 % (0.0-2.0); EOS # 0.1 K/uL (0.0-0.7); EOS % 1.1 % (0.0-4.0); HEMOGLOBIN 12.8 g/dL (12.0-18.0); LYMPH # 1.2 K/uL (1.0-4.3); LYMPH % 12.8 % (20.0-40.0); MEAN CELL VOLUME 100.3 fL (80.0-94.0); MEAN CORPUSCULAR HEMOGLOBIN 34.7 pg (27.0-31.0); MEAN CORPUSCULAR HGB CONC 34.6 g/dL (33.0-37.0); MEAN PLATELET VOLUME 8.5 fL (7.2-11.7); MONO # 0.8 K/uL (0.0-0.8); MONO % 8.8 % (0.0-10.0); NEUT # 7.1 K/uL (1.8-7.0); NEUT % 76.7 % (50.0-75.0); RBC 3.69 Mil/uL (4.40-5.90); RED CELL DISTRIBUTION WIDTH 13.1 % (11.5-14.5); WHITE BLOOD COUNT 9.3 K/uL (4.8-10.8)
[2017-10-29 07:50] LABS: ALB/GLOB RATIO 1.1 (1.0-2.1); ALBUMIN 3.6 g/dL (3.5-5.0); ALT/SGPT 64 U/L (21-72); AST/SGOT 63 U/L (17-59); BLOOD UREA NITROGEN 13 mg/dL (9-20); GFR AFRICAN-AMERICAN > 60; GFR NON-AFRICAN AMERICAN > 60
--- NOTE | 2017-10-29 09:35 | CP.PCM.PN ---
Subjective - Date & Time of Evaluation Date of Evaluation: 10/29/17 Time of Evaluation: 09:34 - Subjective Subjective: PGY2 Medicine Note for Dr. Phil Atwood Patient seen and examined this morning. Nursing reports patient lethargic and difficult to arouse this AM. Patient states he did not sleep well last night. CP reports patient was arousable after splashing water on his face. Patient found lying in bed, oriented x 3, and to context of his admission. Objective - Vital Signs/Intake and Output Vital Signs (last 24 hours): Temp Pulse Resp BP Pulse Ox 97.5 F L 72 20 154/86 H 96 10/29/17 07:00 10/29/17 07:00 10/29/17 07:00 10/29/17 07:00 10/29/17 07:00 Intake and Output: 10/29/17 10/29/17 06:59 18:59 Intake Total 1300 Balance 1300 - Medications Medications: Current Medications Aspirin (Aspirin) 325 mg PO DAILY [facility] Last Admin: 10/26/17 14:55 Dose: Not Given Chlordiazepoxide (Librium) 25 mg PO Q8 PRN PRN Reason: Anxiety Last Admin: 10/29/17 01:29 Dose: 25 mg Clonidine HCl (Catapres) 0.1 mg PO Q6 PRN PRN Reason: Systolic Blood Pressure Last Admin: 10/29/17 01:29 Dose: 0.1 mg Enoxaparin Sodium (Lovenox) 40 mg SC DAILY [facility] Last Admin: 10/26/17 10:11 Dose: 40 mg Folic Acid (Folic Acid) 1 mg PO DAILY [facility] Last Admin: 10/28/17 14:13 Dose: 1 mg Piperacillin Sod/Tazobactam (Sod 3.375 gm/ Sodium Chloride) 100 mls @ 200 mls/ hr IVPB Q8H [facility] Last Admin: 10/29/17 05:44 Dose: 200 mls/hr Sodium Chloride (Sodium Chloride 0.9%) 1,000 mls @ 100 mls/hr IV .Q10H [facility] Last Admin: 10/28/17 23:15 Dose: Not Given Nitroglycerin (Nitro-Bid 2% Oint) 1 ea TOP Q6H [facility] Last Admin: 10/29/17 04:50 Dose: 1 ea Pantoprazole Sodium (Protonix Ec Tab) 40 mg PO DAILY [facility] Potassium Chloride (K-Dur 20 Meq Er Tab) 20 meq PO DAILY [facility] Last Admin: 10/28/17 11:08 Dose: Not Given Saccharomyces Boulardii (Florastor) 250 mg PO BID [facility] Last Admin: 10/28/17 18:09 Dose: 250 mg Thiamine HCl (Vitamin B1 Tab) 100 mg PO DAILY [facility] Last Admin: 10/28/17 11:09 Dose: Not Given - Labs Labs: 10/29/17 06:52 10/29/17 06:52 PT 11.2 SECONDS (9.7-12.2) 10/26/17 14:23 INR 1.0 10/26/17 14:23 APTT 34 SECONDS (21-34) 10/26/17 14:23 - Additional Findings Additional findings: - Constitutional Appears: Unkempt, Chronically Ill, Other (lethargic) - Head Exam Head Exam: ATRAUMATIC - Eye Exam Eye Exam: EOMI, Normal appearance. absent: Scleral icterus - ENT Exam ENT Exam: Mucous Membranes Moist - Neck Exam Neck Exam: absent: Lymphadenopathy - Respiratory Exam Respiratory Exam: Clear to Ausculation Bilateral, NORMAL BREATHING PATTERN. absent: Accessory Muscle Use - Cardiovascular Exam Cardiovascular Exam: REGULAR RHYTHM, +S1, +S2 - GI/Abdominal Exam GI & Abdominal Exam: Soft, non-tender, no masses palpable, immaciated/gaunt - Extremities Exam Extremities Exam: absent: Calf Tenderness, Pedal Edema - Neurological Exam Neurological Exam: Alert, Awake, Oriented x3 Additional comments: mild hand tremors noted this AM - Psychiatric Exam Psychiatric exam: Flat Affect (very lethargic) - Skin Skin Exam: Warm Assessment and Plan - Assessment and Plan (Free Text) Plan: Alcohol Abuse - Alcohol Level (10/24/17): 365 - Head CT: No acute intracranial hemorrhage. 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 Suspect minimal chronic periventricular white matter ischemic changes. Mild moderate generalized volume loss. Progressive opacification melendez paranasal sinuses as described. - Psych Consult: Dr. Onofre --> help appreciated - Discontinued librium - Clonidine .1mg q6prn systolic b/p >160 - NS @100cc/hr - Folic Acid 1mg po daily - Thiamine 100mg po daily Altered Mental Status/Lethargy - poor historian - Head CT (10/24/17): No acute intracranial hemorrhage. 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 Suspect minimal chronic periventricular white matter ischemic changes. Mild moderate generalized volume loss. Progressive opacification melendez paranasal sinuses as described. - f/u CT Head (10/28/17): No acute intracranial pathology. No significant interval change (see full report) Dr. Jenkins, neurology consult - f/u MRI brain w/wo - f/u EEG - f/u ammonia, prolactin, NAVID Stool Occult Positive - H/H: 12.8/37.0 (10/29/17) - Protonix 40mg IV daily GI Consult: Dr. Mendoza --> help appreciated - recommend colonoscopy as outpatient - continue 1:1 for pt safety - check B12/phos/folate UDS + - UDS + opiates - Psych Consult: Dr. Onofre --> help appreciated Abnormal ECG: EKG (10/24/17): Diffuse ST segment depression. - Cardiology Consult: Dr. Moyer --> help appreciated - f/u ECHO Hypokalemia - resolved K 3.9 this AM Monitor Elevated T bili Tbili 2.4 max - decreasing (1.3 on 10/29/17) Elevated CPK On admission 475 Etiology: cardio believes to be rhabdo f/u CPK to assure resolution Elevated Liver Enzymes - resolving - AST/ALT 63/64 - Hepatitis C antibody + - HIV negative Elevated Lactic Acid Lactic Acid 2.1 (10/24) ID Consult: Dr. Gatica --> help appreciated - Blood cultures (10/26/17): No growth x 48 hrs - Zosyn 3.375gm q8h (10/25/17) - Florastor 250mg daily HTN Cardiology Consult: Dr. Moyer --> help appreciated - EKG: Sinus tach @100 bpm, ST segment depression Elevated over course Catapres 0.1 mg PO Q6H PRN Start Norvasc 5mg PO Daily History COPD - Chest Xray: Re- demonstrated are hyperinflation changes both lungs ; rule out underlying COPD or emphysema. Anorexia/Weight loss Ensure supplementation Dietary referral - will ask for calorie count Marinol 5mg PO BID Prophylaxis - SCDs - VTE contraindication - HOLD ASA - Protonix 40mg PO daily All medical management as per Dr. Phil Atwood
[2017-10-29] MEDS: Saccharomyces Boulardi 250 mg Cap PO SCH ×2 (10:44→17:43)
[2017-10-29] MEDS: Pantoprazole 40 mg EC Tab PO SCH (10:44)
[2017-10-29] MEDS ORDERED: Albuterol-Ipratrop 3 mg / 0.5 (3 ml) UD INH PRN (11:30)
[2017-10-29] MEDS: Multiple Vitamins Tab PO SCH (11:50)
--- NOTE | 2017-10-29 14:52 | MRI ---
PROCEDURE: MRI BRAIN WITH AND WITHOUT CONTRAST HISTORY: attention at [facility], mamillary body COMPARISON: Noncontrast head CT from 10/28/2017. TECHNIQUE: Multiplanar, multisequence MR images of the brain were obtained with and without intravenous contrast enhancement. 9 mL Omniscan was injected intravenously. FINDINGS: HEMORRHAGE: None DWI: No evidence of an acute or early subacute infarction. BRAIN PARENCHYMA: Roa-white matter differentiation is preserved. There is no mass, mass effect or abnormal extra-axial fluid collection. There is no territorial infarction. The midline sagittal structures are normal. ENHANCEMENT: No abnormal intracranial enhancement. VENTRICLES: There is moderate age advanced global parenchymal volume loss and proportionate enlargement of the ventricles, cerebellar folia and cortical sulci. CRANIUM: Unremarkable. ORBITS: Grossly unremarkable. PARANASAL SINUSES/MASTOIDS: There is severe polypoid mucosal thickening in the right maxillary sinus, moderate polypoid mucosal thickening in the left maxillary sinus and mild mucosal thickening in the remaining paranasal sinuses. There is a small retention cyst/polyp VASCULAR SYSTEM: There are normal signal voids in the larger intracranial arteries. OTHER FINDINGS: None . IMPRESSION: No acute intracranial abnormality. Moderate cerebral and cerebellar volume loss, advanced for the patient's age. Chronic maxillary sinusitis, worse on the right.
--- NOTE | 2017-10-29 18:17 | CP.PCM.PN ---
Subjective - Date & Time of Evaluation Date of Evaluation: 10/29/17 Time of Evaluation: 09:00 - Subjective Subjective: AFEB NAD Objective - Vital Signs/Intake and Output Vital Signs (last 24 hours): Temp Pulse Resp BP Pulse Ox 97.5 F L 79 20 145/86 97 10/29/17 15:40 10/29/17 15:40 10/29/17 15:40 10/29/17 15:40 10/29/17 15:40 Intake and Output: 10/29/17 10/29/17 06:59 18:59 Intake Total 1300 1000 Balance 1300 1000 - Medications Medications: Current Medications Albuterol/Ipratropium (Duoneb 3 Mg/0.5 Mg (3 Ml) Ud) 3 ml INH RQ4 PRN PRN Reason: Shortness of Breath Last Admin: 10/29/17 13:25 Dose: 3 ml Amlodipine Besylate (Norvasc) 5 mg PO Q24H [facility] Last Admin: 10/29/17 16:27 Dose: 5 mg Aspirin (Aspirin) 325 mg PO DAILY [facility] Last Admin: 10/26/17 14:55 Dose: Not Given Clonidine HCl (Catapres) 0.1 mg PO Q6 PRN PRN Reason: Systolic Blood Pressure Last Admin: 10/29/17 01:29 Dose: 0.1 mg Dronabinol (Marinol) 2.5 mg PO BID [facility] Enoxaparin Sodium (Lovenox) 40 mg SC DAILY [facility] Last Admin: 10/26/17 10:11 Dose: 40 mg Folic Acid (Folic Acid) 1 mg PO DAILY [facility] Last Admin: 10/29/17 10:44 Dose: 1 mg Piperacillin Sod/Tazobactam (Sod 3.375 gm/ Sodium Chloride) 100 mls @ 200 mls/ hr IVPB Q8H [facility] Last Admin: 10/29/17 14:00 Dose: 200 mls/hr Lorazepam (Ativan) 2 mg IVP Q6H PRN PRN Reason: Agitation Last Admin: 10/29/17 16:44 Dose: 2 mg Multivitamins (Hexavitamin) 1 tab PO DAILY [facility] Last Admin: 10/29/17 11:50 Dose: 1 tab Nitroglycerin (Nitro-Bid 2% Oint) 1 ea TOP Q6H [facility] Last Admin: 07/06/18 17:42 Dose: 1 ea Pantoprazole Sodium (Protonix Ec Tab) 40 mg PO DAILY [facility] Last Admin: 10/29/17 10:44 Dose: 40 mg Saccharomyces Boulardii (Florastor) 250 mg PO BID [facility] Last Admin: 10/29/17 17:43 Dose: 250 mg Thiamine HCl (Vitamin B1 Tab) 100 mg PO DAILY [facility] Last Admin: 10/29/17 10:44 Dose: 100 mg - Labs Labs: 10/29/17 06:52 10/29/17 06:52 PT 11.2 SECONDS (9.7-12.2) 10/26/17 14:23 INR 1.0 10/26/17 14:23 APTT 34 SECONDS (21-34) 10/26/17 14:23 - Constitutional Appears: Non-toxic, Cachectic, Chronically Ill - Head Exam Head Exam: NORMOCEPHALIC - Eye Exam Eye Exam: PERRL - ENT Exam ENT Exam: Mucous Membranes Dry - Neck Exam Neck Exam: absent: Lymphadenopathy - Respiratory Exam Respiratory Exam: Decreased Breath Sounds - Cardiovascular Exam Cardiovascular Exam: REGULAR RHYTHM - GI/Abdominal Exam GI & Abdominal Exam: Distended - Rectal Exam Rectal Exam: Deferred - Exam Exam: NORMAL INSPECTION - Extremities Exam Extremities Exam: absent: Pedal Edema Assessment and Plan (1) Alcohol intoxication Status: Acute (2) Dehydration Status: Acute (3) Elevated CK Status: Acute (4) Elevated lactic acid level Status: Acute (5) Guaiac positive stools Status: Acute (6) Heat exhaustion Status: Acute (7) Hypokalemia Status: Acute (8) Agitation Status: Acute (9) Drug dependence Status: Acute (10) Opioid use disorder, severe, dependence Status: Acute
--- NOTE | 2017-10-29 19:02 | CON ---
DATE: 10/29/2017 TIME OF EVALUATION: 07:05 a.m. REASON FOR RECONSULTATION: Change in mental status. CHIEF COMPLAINT: The patient was brought into [facility] via ambulance with history of the patient was found on the floor in front of the liquor store. No obvious trauma at the scene. No history of witnessed tonic-clonic activities at the scene. Following three days, the patient's mental status has not been changed. From neurological point of view, I was called in to evaluate him for further management. HISTORY OF PRESENT ILLNESS: Mr. Fletcher Barron is a 62-year-old right-handed cachectic male presenting with chronic alcohol use with chronic pain syndrome, been seeing some clinic in the [place] two years ago, being presenting with alcohol toxicity and loss of consciousness in the street. During the hospitalizations, the patient found to have a workup and had abnormal blood workup. Since his neuro status did not change from neurological point of view, I was called in to evaluate him for further management. He claims no seizures, history of alcohol for long time. Multiple admission in the hospital alcohol-related problem in the past. No history of seizures or on medications in the past as per history. No history of head trauma; however, he admits to chronic lower back pain, needs multiple medication for his right hip region. ALLERGIES: NO KNOWN ALLERGIES. REVIEW OF SYSTEMS: A 12-point system being reviewed. From neuro, new change in mental status. MEDICATIONS: Aspirin, clonidine, Florastor, folic acid, potassium supplement, Librium, Lovenox, Nitro-Bid, piperacillin and tazobactam, Protonix, sodium chloride, IV fluids and vitamin B1. PHYSICAL EXAMINATION: VITAL SIGNS: Blood pressure 161/108, mean arterial pressure of 125, respiratory rate 18, temperature afebrile, pulse rate 68. NECK: Supple. No carotid bruits. HEART: Sounds slight tachycardia. No murmur. EXTREMITIES: Multiple scratch [place] and distal as well as proximal muscle atrophy. NEUROLOGICAL: Mental status examination: He is awake, alert, oriented to person, place and time. No right and left confusion. He moves to all commands. No right and left confusion. He follows three-step commands. No confabulation. No hallucination. No subjective double visions. Cranial nerve examination: Visual field intact. Pupil reactive light. Extraocular movement decreased in all direction. No facial sensory deficit. No facial asymmetry. Hearing is normal. Tongue is midline. Good gag. Motor examination: On outstretched hand with eyes closed with a significant sensory tremor. No asterixis. Muscle strength is symmetric on either side. However, on holding and the lower extremities is problematic to him due to the pain on his right hip region. Deep tendon reflexes, biceps, brachialis, triceps 1+ on either side. Both knee 1+, both ankles are absent. Plantars are upgoing on both sides. Sensory examination: Respond to pain symmetrically on both sides. No cortical sensory loss. Coordination: [id number] test is impaired due to his tremor as well as toxic symptom from alcohol. Gait is deferred at this time. However, it was told that he has been holding objects when he is walking with a broad-based gait. WORKUP: CT of the head shows mild atrophy with small vessel disease. EKG, normal sinus rhythm. Blood workup: WBC 9.3, hemoglobin 12.8, hematocrit 37, platelet 181. Sodium 143, potassium 3, chloride 107, bicarbonate is 26, BUN 14, creatinine 0.6, GFR more than 60, ALT 64. CONCLUSION: 1. Mr. Fletcher Barron has been presenting with possible alcohol-related blackout with dehydration. At present, the patient does not have any symptoms suggestive of Wernicke encephalopathy or Korsakoff psychosis. 2. The patient does have significant bilateral neuropathy with bilateral Babinski sign. There is possible causes of central cause. This is probably related to small vessel disease and also related structural pathology. RECOMMENDATIONS: 1. MRI of the brain to rule out any ischemic process or atrophy. 2. EEG to rule out any paroxysmal activities related to his alcohol. 3. Continue hydration, vitamin supplements, Librium as a p.r.n. basis. 4. Out of bed and physical therapy should be entertained with fall precaution. 5. Social service should be involved for detoxification. 6. The patient is under one-to-one watch at present. The patient will be followed while he is in the hospital. Garry Jenkins MD [email or web address]
--- NOTE | 2017-10-29 19:21 | CP.PCM.PN ---
Subjective - Date & Time of Evaluation Date of Evaluation: 10/29/17 Time of Evaluation: 10:00 - Subjective Subjective: clinically same Objective - Vital Signs/Intake and Output Vital Signs (last 24 hours): Temp Pulse Resp BP Pulse Ox 97.5 F L 79 20 145/86 97 10/29/17 15:40 10/29/17 15:40 10/29/17 15:40 10/29/17 15:40 10/29/17 15:40 Intake and Output: 10/29/17 10/30/17 18:59 06:59 Intake Total 1000 Balance 1000 - Medications Medications: Current Medications Albuterol/Ipratropium (Duoneb 3 Mg/0.5 Mg (3 Ml) Ud) 3 ml INH RQ4 PRN PRN Reason: Shortness of Breath Last Admin: 10/29/17 13:25 Dose: 3 ml Amlodipine Besylate (Norvasc) 5 mg PO Q24H [facility] Last Admin: 10/29/17 16:27 Dose: 5 mg Aspirin (Aspirin) 325 mg PO DAILY [facility] Last Admin: 10/26/17 14:55 Dose: Not Given Clonidine HCl (Catapres) 0.1 mg PO Q6 PRN PRN Reason: Systolic Blood Pressure Last Admin: 10/29/17 01:29 Dose: 0.1 mg Dronabinol (Marinol) 2.5 mg PO BID [facility] Enoxaparin Sodium (Lovenox) 40 mg SC DAILY [facility] Last Admin: 10/26/17 10:11 Dose: 40 mg Folic Acid (Folic Acid) 1 mg PO DAILY [facility] Last Admin: 10/29/17 10:44 Dose: 1 mg Piperacillin Sod/Tazobactam (Sod 3.375 gm/ Sodium Chloride) 100 mls @ 200 mls/ hr IVPB Q8H [facility] Last Admin: 10/29/17 14:00 Dose: 200 mls/hr Lorazepam (Ativan) 2 mg IVP Q6H PRN PRN Reason: Agitation Last Admin: 10/29/17 16:44 Dose: 2 mg Multivitamins (Hexavitamin) 1 tab PO DAILY [facility] Last Admin: 10/29/17 11:50 Dose: 1 tab Nitroglycerin (Nitro-Bid 2% Oint) 1 ea TOP Q6H [facility] Last Admin: 10/29/17 17:42 Dose: 1 ea Pantoprazole Sodium (Protonix Ec Tab) 40 mg PO DAILY [facility] Last Admin: 10/29/17 10:44 Dose: 40 mg Saccharomyces Boulardii (Florastor) 250 mg PO BID [facility] Last Admin: 10/29/17 17:43 Dose: 250 mg Thiamine HCl (Vitamin B1 Tab) 100 mg PO DAILY [facility] Last Admin: 10/29/17 10:44 Dose: 100 mg - Labs Labs: 10/29/17 06:52 10/29/17 06:52 PT 11.2 SECONDS (9.7-12.2) 10/26/17 14:23 INR 1.0 10/26/17 14:23 APTT 34 SECONDS (21-34) 10/26/17 14:23 - Constitutional Appears: Well - Head Exam Head Exam: ATRAUMATIC, NORMAL INSPECTION, NORMOCEPHALIC - Eye Exam Eye Exam: EOMI, Normal appearance, PERRL Pupil Exam: NORMAL ACCOMODATION, PERRL - ENT Exam ENT Exam: Mucous Membranes Moist, Normal Exam - Neck Exam Neck Exam: Full ROM, Normal Inspection. absent: Lymphadenopathy - Respiratory Exam Respiratory Exam: Decreased Breath Sounds - Cardiovascular Exam Cardiovascular Exam: REGULAR RHYTHM, +S1, +S2 - GI/Abdominal Exam GI & Abdominal Exam: Soft, Diminished Bowel Sounds - Rectal Exam Rectal Exam: Deferred
--- NOTE | 2017-10-29 22:34 | CARD ---
APPROVED REPORT EXAM: Two-dimensional and M-mode echocardiogram with Doppler and color Doppler. Other Information Quality : LimitedRhythm : INDICATION LV Function:Systolic M-Mode DIMENSIONS Left Atrium (MM)2.56 (2.5-4.0cm)Aortic Root3.38 (2.2-3.7cm) Aortic Cusp Exc.1.78 (1.5-2.0cm) Mitral Valve E/A ratio0.0 TDI E/Lateral E'0.0E/Medial E'0.0 Tricuspid Valve TR Peak [id number] Peak [id number] LEFT VENTRICLE There is borderline concentric left ventricular hypertrophy. The left ventricular systolic function is normal. The left ventricular ejection fraction is within the normal range. There is normal LV segmental wall motion.systolic RIGHT VENTRICLE The right ventricle is normal size. The right ventricular systolic function is normal. ATRIA The left atrium size is normal. The right atrium size is normal. AORTIC VALVE The aortic valve is not well seen MITRAL VALVE The mitral valve is normal in structure. There is no mitral valve regurgitation noted. TRICUSPID VALVE The tricuspid valve is normal in structure. There is mild tricuspid regurgitation. Right ventricular systolic pressure is estimated at - 34 mmHg. There is borderline pulmonary hypertension. PULMONIC VALVE The pulmonic valve is not well visualized. GREAT VESSELS The IVC is normal in size and collapses >50% with inspiration. PERICARDIAL EFFUSION There is no gross pericardial effusion. <Conclusion> TECHNICALLY DIFFICULT STUDY - ONLY SUBCOSTAL VIEWS AVAILABLE There is borderline concentric left ventricular hypertrophy. The left ventricular systolic function is normal. There is normal LV segmental wall motion.systolic The right ventricular systolic function is normal. The mitral valve is normal in structure. There is mild tricuspid regurgitation. Right ventricular systolic pressure is estimated at - 34 mmHg. There is no gross pericardial effusion.
[2017-10-30] MEDS: Nitroglycerin 2% Ointment Foilpak UD TOP SCH ×4 (04:52→23:56)
[2017-10-30] MEDS: Piperacillin/Tazobact 3.375 GM in Sodium Chloride 0.9% 100 ML IVPB SCH ×2 (05:31→13:32)
[2017-10-30 07:50] LABS: BASO # 0.1 K/uL (0.0-0.2); BASO % 0.8 % (0.0-2.0); EOS # 0.2 K/uL (0.0-0.7); EOS % 2.3 % (0.0-4.0); HEMOGLOBIN 11.4 g/dL (12.0-18.0); LYMPH # 1.2 K/uL (1.0-4.3); LYMPH % 17.9 % (20.0-40.0); MEAN CELL VOLUME 100.1 fL (80.0-94.0); MEAN CORPUSCULAR HEMOGLOBIN 35.5 pg (27.0-31.0); MEAN CORPUSCULAR HGB CONC 35.5 g/dL (33.0-37.0); MEAN PLATELET VOLUME 8.3 fL (7.2-11.7); MONO # 0.8 K/uL (0.0-0.8); MONO % 12.2 % (0.0-10.0); NEUT # 4.5 K/uL (1.8-7.0); NEUT % 66.8 % (50.0-75.0); RBC 3.21 Mil/uL (4.40-5.90); RED CELL DISTRIBUTION WIDTH 13.1 % (11.5-14.5); WHITE BLOOD COUNT 6.8 K/uL (4.8-10.8)
[2017-10-30 08:10] LABS: ALB/GLOB RATIO 1.1 (1.0-2.1); ALBUMIN 3.4 g/dL (3.5-5.0); ALT/SGPT 66 U/L (21-72); AST/SGOT 52 U/L (17-59); BLOOD UREA NITROGEN 14 mg/dL (9-20); GFR AFRICAN-AMERICAN > 60; GFR NON-AFRICAN AMERICAN > 60
[2017-10-30] MEDS ORDERED: Potassium Chloride 20 mEq ER Tab PO STA (08:53)
[2017-10-30] MEDS: Saccharomyces Boulardi 250 mg Cap PO SCH ×2 (11:16→19:00)
[2017-10-30] MEDS: Multiple Vitamins Tab PO SCH (11:16)
[2017-10-30] MEDS: Pantoprazole 40 mg EC Tab PO SCH (11:16)
[2017-10-30] MEDS: Sodium Chloride 0.9% 1,000 ML IV SCH ×2 (13:31→22:04)
--- NOTE | 2017-10-30 20:38 | CP.PCM.PN ---
Subjective - Date & Time of Evaluation Date of Evaluation: 10/30/17 Time of Evaluation: 10:00 - Subjective Subjective: clinically same Objective - Vital Signs/Intake and Output Vital Signs (last 24 hours): Temp Pulse Resp BP Pulse Ox 97.8 F 87 20 133/83 96 10/30/17 15:15 10/30/17 15:15 10/30/17 15:15 10/30/17 15:15 10/30/17 15:15 Intake and Output: 10/30/17 10/31/17 18:59 06:59 Intake Total 930 Balance 930 - Medications Medications: Current Medications Albuterol/Ipratropium (Duoneb 3 Mg/0.5 Mg (3 Ml) Ud) 3 ml INH RQ4 PRN PRN Reason: Shortness of Breath Last Admin: 10/29/17 13:25 Dose: 3 ml Amlodipine Besylate (Norvasc) 5 mg PO Q24H [facility] Last Admin: 10/30/17 13:21 Dose: 5 mg Aspirin (Aspirin) 325 mg PO DAILY [facility] Last Admin: 10/26/17 14:55 Dose: Not Given Clonidine HCl (Catapres) 0.1 mg PO Q6 PRN PRN Reason: Systolic Blood Pressure Last Admin: 10/30/17 11:15 Dose: 0.1 mg Dronabinol (Marinol) 2.5 mg PO BID [facility] Last Admin: 10/30/17 19:00 Dose: 2.5 mg Enoxaparin Sodium (Lovenox) 40 mg SC DAILY [facility] Last Admin: 10/26/17 10:11 Dose: 40 mg Folic Acid (Folic Acid) 1 mg PO DAILY [facility] Last Admin: 10/30/17 11:16 Dose: 1 mg Sodium Chloride (Sodium Chloride 0.9%) 1,000 mls @ 75 mls/hr IV .[id number] [facility] Last Admin: 10/30/17 13:31 Dose: 75 mls/hr Lorazepam (Ativan) 2 mg IVP Q6H PRN PRN Reason: Agitation Last Admin: 10/30/17 16:57 Dose: 2 mg Multivitamins (Hexavitamin) 1 tab PO DAILY [facility] Last Admin: 10/30/17 11:16 Dose: 1 tab Nitroglycerin (Nitro-Bid 2% Oint) 1 ea TOP Q6H [facility] Last Admin: 10/30/17 16:47 Dose: 1 ea Pantoprazole Sodium (Protonix Ec Tab) 40 mg PO DAILY [facility] Last Admin: 10/30/17 11:16 Dose: 40 mg Saccharomyces Boulardii (Florastor) 250 mg PO BID [facility] Last Admin: 10/30/17 19:00 Dose: 250 mg Thiamine HCl (Vitamin B1 Tab) 100 mg PO DAILY [facility] Last Admin: 10/30/17 11:17 Dose: 100 mg - Labs Labs: 10/30/17 07:38 10/30/17 07:38 PT 11.2 SECONDS (9.7-12.2) 10/26/17 14:23 INR 1.0 10/26/17 14:23 APTT 34 SECONDS (21-34) 10/26/17 14:23 - Constitutional Appears: Well - Head Exam Head Exam: ATRAUMATIC, NORMAL INSPECTION, NORMOCEPHALIC - Eye Exam Eye Exam: EOMI, Normal appearance, PERRL Pupil Exam: NORMAL ACCOMODATION, PERRL - ENT Exam ENT Exam: Mucous Membranes Dry - Neck Exam Neck Exam: Full ROM, Normal Inspection. absent: Lymphadenopathy - Respiratory Exam Respiratory Exam: Decreased Breath Sounds - Cardiovascular Exam Cardiovascular Exam: REGULAR RHYTHM, +S1, +S2 - GI/Abdominal Exam GI & Abdominal Exam: Soft, Diminished Bowel Sounds - Rectal Exam Rectal Exam: Deferred Assessment and Plan (1) Alcohol intoxication Status: Acute (2) Dehydration Status: Acute (3) Elevated CK Status: Acute (4) Elevated lactic acid level Status: Acute (5) Guaiac positive stools Status: Acute (6) Heat exhaustion Status: Acute (7) Hypokalemia Status: Acute (8) Agitation Status: Acute (9) Alcohol abuse Status: Acute (10) Drug abuse Status: Acute (11) Drug dependence Status: Acute (12) Opioid use disorder, severe, dependence Status: Acute (13) Status post fall Status: Acute (14) Substance abuse Status: Acute - Assessment and Plan (Free Text) Plan: k supplementation Status post on Librium Ativan as needed patient has still significant ISAIAH Monitor the blood pressure Follow-up with the ID Follow-up with the other consultations MRI of the brain results no acute intracranial abnormality moderate cerebellar and cerebellar volume loss
[2017-10-30] MEDS: Piperacillin/Tazobact 3.375 GM in Sodium Chloride 100 ML IVPB SCH (22:01)
[2017-10-31] MEDS: Sodium Chloride 0.9% 1,000 ML IV SCH ×3 (04:11→16:10)
[2017-10-31] MEDS: Piperacillin/Tazobact 3.375 GM in Sodium Chloride 100 ML IVPB SCH ×3 (05:30→22:08)
[2017-10-31] MEDS: Nitroglycerin 2% Ointment Foilpak UD TOP SCH ×4 (06:25→22:39)
[2017-10-31] MEDS: Pantoprazole 40 mg EC Tab PO SCH (10:28)
[2017-10-31] MEDS: Saccharomyces Boulardi 250 mg Cap PO SCH ×2 (10:28→18:27)
[2017-10-31] MEDS: Multiple Vitamins Tab PO SCH (10:30)
--- NOTE | 2017-10-31 11:59 | PCM.FALL ---
Post Fall Progress Note - Post Fall Fall Date: 10/31/17 Fall Time: 10:04 Description of Fall: Patient lost balance and slid unto floor on his buttocks. - Post Fall Exam Vital Sign: Temp Pulse Resp BP Pulse Ox 98.1 F 90 20 156/91 H 97 10/31/17 07:40 10/31/17 07:40 10/31/17 07:40 10/31/17 07:40 10/31/17 07:40 Skull Exam: Negative for: Scalp wound, Scalp hematoma Eye Exam: Positive for: Pupils equal, Pupils reactive Skin Exam: Negative for: Bruising Chest Exam: Negative for: Difficulty breathing Impression/Plan: CODE STAR was called at 10:04AM This was a witnessed event as per CP in the room. CP was coming towards patient in an attempt to grab him when he slipped and fell landing on his buttocks. No apparent signs of visible bruising noted. Patient was immediately able to get up afterwards. Patient denies complaints at this time. Patient alert and responsive and able to be directed back to his bed. Patient able to follow commands. AAOx3 Normal breathing pattern No visible bruises, ecchymosis, hematoma noted. Able to follow commands, muscle strength intact. abnormal gait, although patient is a known fall risk. This is not a new finding upon examination per clinical team present. Marilou Trammell- PGY 3
--- NOTE | 2017-10-31 14:04 | CP.PCM.PN ---
Subjective - Date & Time of Evaluation Date of Evaluation: 10/31/17 Time of Evaluation: 08:00 - Subjective Subjective: no new positive cultures rx in progress Objective - Vital Signs/Intake and Output Vital Signs (last 24 hours): Temp Pulse Resp BP Pulse Ox 98.1 F 90 20 156/91 H 97 10/31/17 07:40 10/31/17 07:40 10/31/17 07:40 10/31/17 07:40 10/31/17 07:40 Intake and Output: 10/31/17 10/31/17 06:59 18:59 Intake Total 2030 Output Total 1500 Balance 530 - Medications Medications: Current Medications Albuterol/Ipratropium (Duoneb 3 Mg/0.5 Mg (3 Ml) Ud) 3 ml INH RQ4 PRN PRN Reason: Shortness of Breath Last Admin: 10/29/17 13:25 Dose: 3 ml Amlodipine Besylate (Norvasc) 5 mg PO Q24H [facility] Last Admin: 10/31/17 13:12 Dose: 5 mg Aspirin (Aspirin) 325 mg PO DAILY [facility] Last Admin: 10/26/17 14:55 Dose: Not Given Clonidine HCl (Catapres) 0.1 mg PO Q6 PRN PRN Reason: Systolic Blood Pressure Last Admin: 10/30/17 11:15 Dose: 0.1 mg Dronabinol (Marinol) 2.5 mg PO BID [facility] Last Admin: 10/31/17 10:28 Dose: 2.5 mg Enoxaparin Sodium (Lovenox) 40 mg SC DAILY [facility] Last Admin: 10/26/17 10:11 Dose: 40 mg Folic Acid (Folic Acid) 1 mg PO DAILY [facility] Last Admin: 10/31/17 10:28 Dose: 1 mg Sodium Chloride (Sodium Chloride 0.9%) 1,000 mls @ 75 mls/hr IV .[id number] [facility] Last Admin: 10/31/17 10:49 Dose: 75 mls/hr Piperacillin Sod/Tazobactam (Sod 3.375 gm/ Sodium Chloride) 100 mls @ 200 mls/ hr IVPB Q8H [facility] PRN Reason: Protocol Last Admin: 10/31/17 14:01 Dose: 200 mls/hr Lorazepam (Ativan) 2 mg IVP Q6H PRN PRN Reason: Agitation Last Admin: 10/30/17 23:55 Dose: 2 mg Multivitamins (Hexavitamin) 1 tab PO DAILY [facility] Last Admin: 10/31/17 10:30 Dose: 1 tab Nitroglycerin (Nitro-Bid 2% Oint) 1 ea TOP Q6H [facility] Last Admin: 10/31/17 12:09 Dose: 1 ea Pantoprazole Sodium (Protonix Ec Tab) 40 mg PO DAILY [facility] Last Admin: 10/31/17 10:28 Dose: 40 mg Saccharomyces Boulardii (Florastor) 250 mg PO BID [facility] Last Admin: 10/31/17 10:28 Dose: 250 mg Thiamine HCl (Vitamin B1 Tab) 100 mg PO DAILY [facility] Last Admin: 10/31/17 10:28 Dose: 100 mg - Labs Labs: 10/30/17 07:38 10/30/17 07:38 PT 11.2 SECONDS (9.7-12.2) 10/26/17 14:23 INR 1.0 10/26/17 14:23 APTT 34 SECONDS (21-34) 10/26/17 14:23 - Constitutional Appears: Non-toxic, Chronically Ill - Head Exam Head Exam: NORMOCEPHALIC - Eye Exam Eye Exam: PERRL - ENT Exam ENT Exam: Mucous Membranes Dry - Neck Exam Neck Exam: absent: Lymphadenopathy - Respiratory Exam Respiratory Exam: Decreased Breath Sounds - Cardiovascular Exam Cardiovascular Exam: REGULAR RHYTHM - GI/Abdominal Exam GI & Abdominal Exam: Distended, Soft - Rectal Exam Rectal Exam: Deferred Assessment and Plan (1) Alcohol intoxication Status: Acute (2) Dehydration Status: Acute (3) Elevated CK Status: Acute (4) Elevated lactic acid level Status: Acute (5) Guaiac positive stools Status: Acute (6) Heat exhaustion Status: Acute (7) Hypokalemia Status: Acute (8) Agitation Status: Acute (9) Drug dependence Status: Acute (10) Opioid use disorder, severe, dependence Status: Acute
--- NOTE | 2017-10-31 14:28 | CP.PCM.PN ---
Subjective - Date & Time of Evaluation Date of Evaluation: 10/31/17 Time of Evaluation: 10:00 - Subjective Subjective: clinically same Objective - Vital Signs/Intake and Output Vital Signs (last 24 hours): Temp Pulse Resp BP Pulse Ox 98.1 F 90 20 156/91 H 97 10/31/17 07:40 10/31/17 07:40 10/31/17 07:40 10/31/17 07:40 10/31/17 07:40 Intake and Output: 10/31/17 10/31/17 06:59 18:59 Intake Total 2030 Output Total 1500 Balance 530 - Medications Medications: Current Medications Albuterol/Ipratropium (Duoneb 3 Mg/0.5 Mg (3 Ml) Ud) 3 ml INH RQ4 PRN PRN Reason: Shortness of Breath Last Admin: 10/29/17 13:25 Dose: 3 ml Amlodipine Besylate (Norvasc) 5 mg PO Q24H [facility] Last Admin: 10/31/17 13:12 Dose: 5 mg Aspirin (Aspirin) 325 mg PO DAILY [facility] Last Admin: 10/26/17 14:55 Dose: Not Given Clonidine HCl (Catapres) 0.1 mg PO Q6 PRN PRN Reason: Systolic Blood Pressure Last Admin: 10/30/17 11:15 Dose: 0.1 mg Dronabinol (Marinol) 2.5 mg PO BID [facility] Last Admin: 10/31/17 10:28 Dose: 2.5 mg Enoxaparin Sodium (Lovenox) 40 mg SC DAILY [facility] Last Admin: 10/26/17 10:11 Dose: 40 mg Folic Acid (Folic Acid) 1 mg PO DAILY [facility] Last Admin: 10/31/17 10:28 Dose: 1 mg Sodium Chloride (Sodium Chloride 0.9%) 1,000 mls @ 75 mls/hr IV .[id number] [facility] Last Admin: 10/31/17 10:49 Dose: 75 mls/hr Piperacillin Sod/Tazobactam (Sod 3.375 gm/ Sodium Chloride) 100 mls @ 200 mls/ hr IVPB Q8H [facility] PRN Reason: Protocol Last Admin: 10/31/17 14:01 Dose: 200 mls/hr Lorazepam (Ativan) 2 mg IVP Q6H PRN PRN Reason: Agitation Last Admin: 10/31/17 14:18 Dose: 2 mg Multivitamins (Hexavitamin) 1 tab PO DAILY [facility] Last Admin: 10/31/17 10:30 Dose: 1 tab Nitroglycerin (Nitro-Bid 2% Oint) 1 ea TOP Q6H [facility] Last Admin: 10/31/17 12:09 Dose: 1 ea Pantoprazole Sodium (Protonix Ec Tab) 40 mg PO DAILY [facility] Last Admin: 10/31/17 10:28 Dose: 40 mg Saccharomyces Boulardii (Florastor) 250 mg PO BID [facility] Last Admin: 10/31/17 10:28 Dose: 250 mg Thiamine HCl (Vitamin B1 Tab) 100 mg PO DAILY [facility] Last Admin: 10/31/17 10:28 Dose: 100 mg - Labs Labs: 10/30/17 07:38 10/30/17 07:38 PT 11.2 SECONDS (9.7-12.2) 10/26/17 14:23 INR 1.0 10/26/17 14:23 APTT 34 SECONDS (21-34) 10/26/17 14:23 - Constitutional Appears: Well - Head Exam Head Exam: ATRAUMATIC, NORMAL INSPECTION, NORMOCEPHALIC - Eye Exam Eye Exam: EOMI, Normal appearance, PERRL Pupil Exam: NORMAL ACCOMODATION, PERRL - ENT Exam ENT Exam: Mucous Membranes Moist, Normal Exam - Respiratory Exam Respiratory Exam: Decreased Breath Sounds - Cardiovascular Exam Cardiovascular Exam: REGULAR RHYTHM, +S1, +S2 - GI/Abdominal Exam GI & Abdominal Exam: Soft, Diminished Bowel Sounds - Rectal Exam Rectal Exam: Deferred Assessment and Plan (1) Alcohol intoxication Status: Acute (2) Dehydration Status: Acute (3) Elevated CK Status: Acute (4) Elevated lactic acid level Status: Acute (5) Guaiac positive stools Status: Acute (6) Heat exhaustion Status: Acute (7) Hypokalemia Status: Acute (8) Agitation Status: Acute (9) Alcohol abuse Status: Acute (10) Drug abuse Status: Acute (11) Drug dependence Status: Acute (12) Opioid use disorder, severe, dependence Status: Acute (13) Status post fall Status: Acute (14) Substance abuse Status: Acute
[2017-11-01] MEDS: Nitroglycerin 2% Ointment Foilpak UD TOP SCH ×4 (04:22→22:54)
[2017-11-01] MEDS: Sodium Chloride 0.9% 1,000 ML IV SCH ×2 (05:42→18:50)
[2017-11-01] MEDS: Piperacillin/Tazobact 3.375 GM in Sodium Chloride 100 ML IVPB SCH ×3 (05:44→21:32)
--- NOTE | 2017-11-01 07:39 | CP.PCM.PN ---
Subjective - Date & Time of Evaluation Date of Evaluation: 11/01/17 Time of Evaluation: 07:38 - Subjective Subjective: Internal Medicine Progress Note - Dr Phil Atwood Service Patient seen and examined at bedside. Objective - Vital Signs/Intake and Output Vital Signs (last 24 hours): Temp Pulse Resp BP Pulse Ox 98.3 F 81 20 160/88 H 97 11/01/17 04:21 11/01/17 04:21 11/01/17 04:21 11/01/17 04:21 11/01/17 04:21 Intake and Output: 11/01/17 11/01/17 06:59 18:59 Intake Total 1575 Output Total 1200 Balance 375 - Medications Medications: Current Medications Albuterol/Ipratropium (Duoneb 3 Mg/0.5 Mg (3 Ml) Ud) 3 ml INH RQ4 PRN PRN Reason: Shortness of Breath Last Admin: 10/29/17 13:25 Dose: 3 ml Amlodipine Besylate (Norvasc) 5 mg PO Q24H [facility] Last Admin: 10/31/17 13:12 Dose: 5 mg Aspirin (Aspirin) 325 mg PO DAILY [facility] Last Admin: 10/26/17 14:55 Dose: Not Given Bacitracin (Bacitracin) 0 gm TOP DAILY [facility] Clonidine HCl (Catapres) 0.1 mg PO Q6 PRN PRN Reason: Systolic Blood Pressure Last Admin: 10/30/17 11:15 Dose: 0.1 mg Cyanocobalamin (Vitamin B12 1000 Mcg/Ml Inj) 1,000 mcg IM DAILY [facility] Stop: 11/03/17 10:01 Dronabinol (Marinol) 2.5 mg PO BID [facility] Last Admin: 10/31/17 18:27 Dose: 2.5 mg Enoxaparin Sodium (Lovenox) 40 mg SC DAILY [facility] Last Admin: 10/26/17 10:11 Dose: 40 mg Folic Acid (Folic Acid) 1 mg PO DAILY [facility] Last Admin: 10/31/17 10:28 Dose: 1 mg Sodium Chloride (Sodium Chloride 0.9%) 1,000 mls @ 75 mls/hr IV .[id number] [facility] Last Admin: 11/01/17 05:42 Dose: 75 mls/hr Piperacillin Sod/Tazobactam (Sod 3.375 gm/ Sodium Chloride) 100 mls @ 200 mls/ hr IVPB Q8H [facility] PRN Reason: Protocol Last Admin: 11/01/17 05:44 Dose: 200 mls/hr Lorazepam (Ativan) 2 mg IVP Q6H PRN PRN Reason: Agitation Last Admin: 11/01/17 02:35 Dose: 2 mg Multivitamins (Hexavitamin) 1 tab PO DAILY [facility] Last Admin: 10/31/17 10:30 Dose: 1 tab Nicotine (Nicoderm Cq) 1 patch TD DAILY [facility] Last Admin: 10/31/17 17:30 Dose: 1 patch Nitroglycerin (Nitro-Bid 2% Oint) 1 ea TOP Q6H [facility] Last Admin: 11/01/17 04:22 Dose: 1 ea Pantoprazole Sodium (Protonix Ec Tab) 40 mg PO DAILY [facility] Last Admin: 10/31/17 10:28 Dose: 40 mg Saccharomyces Boulardii (Florastor) 250 mg PO BID [facility] Last Admin: 10/31/17 18:27 Dose: 250 mg Thiamine HCl (Vitamin B1 Tab) 100 mg PO DAILY [facility] Last Admin: 10/31/17 10:28 Dose: 100 mg - Labs Labs: 10/30/17 07:38 10/30/17 07:38 PT 11.2 SECONDS (9.7-12.2) 10/26/17 14:23 INR 1.0 10/26/17 14:23 APTT 34 SECONDS (21-34) 10/26/17 14:23
[2017-11-01] MEDS: Multiple Vitamins Tab PO SCH (10:38)
[2017-11-01] MEDS: Saccharomyces Boulardi 250 mg Cap PO SCH ×2 (10:38→17:03)
[2017-11-01] MEDS: Bacitracin Ointment 30 GM TUBE TOP SCH (10:38)
[2017-11-01] MEDS: Pantoprazole 40 mg EC Tab PO SCH (10:39)
--- NOTE | 2017-11-01 16:58 | CP.PCM.PN ---
Subjective - Date & Time of Evaluation Date of Evaluation: 11/01/17 Time of Evaluation: 10:55 - Subjective Subjective: PGY2 Medicine Note for Dr. Phil Awtood Patient seen and examined at bedside this morning. Patient was a Code Star yesterday due to sliding of out his chair and landing on the ground. Today he is much more awake and alert. He is AAOx3 and says he has noticed that he is not shaking as much today. He has been asking the nurses for his ativan when he notices he begins to shake. Patient has been tolerating his diet and states he is attempting to eat more. He has no complaints at this time. Objective - Vital Signs/Intake and Output Vital Signs (last 24 hours): Temp Pulse Resp BP Pulse Ox 98.1 F 97 H 20 160/80 H 97 11/01/17 16:00 11/01/17 16:00 11/01/17 16:00 11/01/17 16:00 11/01/17 16:00 Intake and Output: 11/01/17 11/01/17 06:59 18:59 Intake Total 1575 Output Total 1200 500 Balance 375 -500 - Medications Medications: Current Medications Albuterol/Ipratropium (Duoneb 3 Mg/0.5 Mg (3 Ml) Ud) 3 ml INH RQ4 PRN PRN Reason: Shortness of Breath Last Admin: 10/29/17 13:25 Dose: 3 ml Amlodipine Besylate (Norvasc) 5 mg PO Q24H [facility] Last Admin: 11/01/17 14:20 Dose: 5 mg Aspirin (Aspirin) 325 mg PO DAILY [facility] Last Admin: 10/26/17 14:55 Dose: Not Given Bacitracin (Bacitracin) 0 gm TOP DAILY [facility] Last Admin: 11/01/17 10:38 Dose: 1 applic Clonidine HCl (Catapres) 0.1 mg PO Q6 PRN PRN Reason: Systolic Blood Pressure Last Admin: 10/30/17 11:15 Dose: 0.1 mg Cyanocobalamin (Vitamin B12 1000 Mcg/Ml Inj) 1,000 mcg IM DAILY [facility] Stop: 11/03/17 10:01 Last Admin: 11/01/17 10:39 Dose: 1,000 mcg Dronabinol (Marinol) 2.5 mg PO BID [facility] Last Admin: 11/01/17 10:39 Dose: 2.5 mg Enoxaparin Sodium (Lovenox) 40 mg SC DAILY [facility] Last Admin: 10/26/17 10:11 Dose: 40 mg Folic Acid (Folic Acid) 1 mg PO DAILY [facility] Last Admin: 11/01/17 10:38 Dose: 1 mg Sodium Chloride (Sodium Chloride 0.9%) 1,000 mls @ 75 mls/hr IV .[id number] [facility] Last Admin: 11/01/17 05:42 Dose: 75 mls/hr Piperacillin Sod/Tazobactam (Sod 3.375 gm/ Sodium Chloride) 100 mls @ 200 mls/ hr IVPB Q8H [facility] PRN Reason: Protocol Last Admin: 11/01/17 14:20 Dose: 200 mls/hr Lorazepam (Ativan) 2 mg IVP Q6H PRN PRN Reason: Agitation Last Admin: 11/01/17 10:37 Dose: 2 mg Multivitamins (Hexavitamin) 1 tab PO DAILY [facility] Last Admin: 11/01/17 10:38 Dose: 1 tab Nicotine (Nicoderm Cq) 1 patch TD DAILY [facility] Last Admin: 11/01/17 10:39 Dose: 1 patch Nitroglycerin (Nitro-Bid 2% Oint) 1 ea TOP Q6H [facility] Last Admin: 11/01/17 10:39 Dose: 1 ea Pantoprazole Sodium (Protonix Ec Tab) 40 mg PO DAILY [facility] Last Admin: 11/01/17 10:39 Dose: 40 mg Saccharomyces Boulardii (Florastor) 250 mg PO BID [facility] Last Admin: 11/01/17 10:38 Dose: 250 mg Thiamine HCl (Vitamin B1 Tab) 100 mg PO DAILY [facility] Last Admin: 11/01/17 10:39 Dose: 100 mg - Labs Labs: 10/30/17 07:38 10/30/17 07:38 PT 11.2 SECONDS (9.7-12.2) 10/26/17 14:23 INR 1.0 10/26/17 14:23 APTT 34 SECONDS (21-34) 10/26/17 14:23 - Constitutional Appears: Non-toxic, Older Than Stated Age, Chronically Ill - Head Exam Head Exam: ATRAUMATIC - Eye Exam Eye Exam: Normal appearance. absent: Scleral icterus - ENT Exam ENT Exam: Mucous Membranes Moist - Respiratory Exam Respiratory Exam: NORMAL BREATHING PATTERN. absent: Accessory Muscle Use, Rhonchi, Wheezes, Respiratory Distress - Cardiovascular Exam Cardiovascular Exam: REGULAR RHYTHM, +S1, +S2 - GI/Abdominal Exam GI & Abdominal Exam: Soft. absent: Distended, Firm, Guarding, Rigid, Tenderness - Extremities Exam Extremities Exam: absent: Calf Tenderness, Pedal Edema - Neurological Exam Neurological Exam: Alert, Awake, CN II-XII Intact, Oriented x3 Additional comments: mild hand tremors b/l in the AM - Psychiatric Exam Psychiatric exam: Flat Affect, Normal Mood - Skin Skin Exam: Dry, Warm Assessment and Plan - Assessment and Plan (Free Text) Plan: Alcohol Abuse - Alcohol Level (10/24/17): 365 - Head CT: No acute intracranial hemorrhage. 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 Suspect minimal chronic periventricular white matter ischemic changes. Mild moderate generalized volume loss. Progressive opacification melendez paranasal sinuses as described. - Psych Consult: Dr. Onofre --> help appreciated - Clonidine .1mg q6prn systolic b/p >160 - NS @100cc/hr - Folic Acid 1mg po daily - Thiamine 100mg po daily Altered Mental Status/Lethargy - poor historian - Head CT (10/24/17): No acute intracranial hemorrhage. 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 Suspect minimal chronic periventricular white matter ischemic changes. Mild moderate generalized volume loss. Progressive opacification melendez paranasal sinuses as described. - f/u CT Head (10/28/17): No acute intracranial pathology. No significant interval change (see full report) Dr. Jenkins, neurology consult * Vit B12 1,000mcg IM daily - 1 of 3 doses - MRI brain w/wo (10/29/17): - f/u EEG - f/u ammonia, prolactin, NAVID Stool Occult Positive - H/H: 11.4/32.2 (10/29/17) - Protonix 40mg IV daily GI Consult: Dr. Mendoza --> help appreciated - recommend colonoscopy as outpatient - continue 1:1 for pt safety - check B12/phos/folate UDS + - UDS + opiates - Psych Consult: Dr. Onofre --> help appreciated Abnormal ECG: EKG (10/24/17): Diffuse ST segment depression. - Cardiology Consult: Dr. Moyer --> help appreciated - ECHO (10/29/17): Difficult study, only subcostal view. Borderline concentric LVH , norm LV systolic function, normal MV, mild TR. Hypokalemia - resolved Monitor Elevated T bili Tbili 2.4 max - decreasing (1.3 on 10/29/17) Elevated CPK (resolved) On admission 475 Etiology: cardio believes to be rhabdo Total CK 40 on 10/29 Elevated Liver Enzymes - resolved - AST/ALT 52/65 - Hepatitis C antibody + - HIV negative Elevated Lactic Acid Lactic Acid 2.1 (10/24) ID Consult: Dr. Gatica --> help appreciated - Blood cultures (10/26/17): No growth x 5 days - Zosyn 3.375gm q8h (10/25/17) - Florastor 250mg daily HTN Cardiology Consult: Dr. Moyer --> help appreciated - EKG: Sinus tach @100 bpm, ST segment depression Elevated over course Catapres 0.1 mg PO Q6H PRN Norvasc 5mg PO Daily History COPD - Chest Xray: Re- demonstrated are hyperinflation changes both lungs ; rule out underlying COPD or emphysema. Anorexia/Weight loss Ensure supplementation Dietary referral - will ask for calorie count Marinol 5mg PO BID Prophylaxis - SCDs - VTE contraindication - HOLD ASA - Protonix 40mg PO daily All medical management as per Dr. Phil Atwood
--- NOTE | 2017-11-01 21:01 | CP.PCM.PN ---
Subjective - Date & Time of Evaluation Date of Evaluation: 11/01/17 Time of Evaluation: 09:00 - Subjective Subjective: clinically same Objective - Vital Signs/Intake and Output Vital Signs (last 24 hours): Temp Pulse Resp BP Pulse Ox 98.1 F 99 H 20 160/80 H 97 11/01/17 16:00 11/01/17 17:30 11/01/17 16:00 11/01/17 16:00 11/01/17 16:00 Intake and Output: 11/01/17 11/02/17 18:59 06:59 Output Total 500 Balance -500 - Medications Medications: Current Medications Albuterol/Ipratropium (Duoneb 3 Mg/0.5 Mg (3 Ml) Ud) 3 ml INH RQ4 PRN PRN Reason: Shortness of Breath Last Admin: 10/29/17 13:25 Dose: 3 ml Amlodipine Besylate (Norvasc) 5 mg PO Q24H [facility] Last Admin: 11/01/17 14:20 Dose: 5 mg Aspirin (Aspirin) 325 mg PO DAILY [facility] Last Admin: 10/26/17 14:55 Dose: Not Given Bacitracin (Bacitracin) 0 gm TOP DAILY [facility] Last Admin: 11/01/17 10:38 Dose: 1 applic Clonidine HCl (Catapres) 0.1 mg PO Q6 PRN PRN Reason: Systolic Blood Pressure Last Admin: 10/30/17 11:15 Dose: 0.1 mg Cyanocobalamin (Vitamin B12 1000 Mcg/Ml Inj) 1,000 mcg IM DAILY [facility] Stop: 11/03/17 10:01 Last Admin: 11/01/17 10:39 Dose: 1,000 mcg Dronabinol (Marinol) 2.5 mg PO BID [facility] Last Admin: 11/01/17 17:04 Dose: 2.5 mg Enoxaparin Sodium (Lovenox) 40 mg SC DAILY [facility] Last Admin: 10/26/17 10:11 Dose: 40 mg Folic Acid (Folic Acid) 1 mg PO DAILY [facility] Last Admin: 11/01/17 10:38 Dose: 1 mg Sodium Chloride (Sodium Chloride 0.9%) 1,000 mls @ 75 mls/hr IV .[id number] [facility] Last Admin: 11/01/17 05:42 Dose: 75 mls/hr Piperacillin Sod/Tazobactam (Sod 3.375 gm/ Sodium Chloride) 100 mls @ 200 mls/ hr IVPB Q8H [facility] PRN Reason: Protocol Last Admin: 11/01/17 14:20 Dose: 200 mls/hr Lorazepam (Ativan) 2 mg IVP Q6H PRN PRN Reason: Agitation Last Admin: 11/01/17 17:02 Dose: 2 mg Multivitamins (Hexavitamin) 1 tab PO DAILY [facility] Last Admin: 11/01/17 10:38 Dose: 1 tab Nicotine (Nicoderm Cq) 1 patch TD DAILY [facility] Last Admin: 11/01/17 10:39 Dose: 1 patch Nitroglycerin (Nitro-Bid 2% Oint) 1 ea TOP Q6H [facility] Last Admin: 11/01/17 17:03 Dose: 1 ea Pantoprazole Sodium (Protonix Ec Tab) 40 mg PO DAILY [facility] Last Admin: 11/01/17 10:39 Dose: 40 mg Saccharomyces Boulardii (Florastor) 250 mg PO BID [facility] Last Admin: 11/01/17 17:03 Dose: 250 mg Thiamine HCl (Vitamin B1 Tab) 100 mg PO DAILY [facility] Last Admin: 11/01/17 10:39 Dose: 100 mg - Labs Labs: 10/30/17 07:38 10/30/17 07:38 PT 11.2 SECONDS (9.7-12.2) 10/26/17 14:23 INR 1.0 10/26/17 14:23 APTT 34 SECONDS (21-34) 10/26/17 14:23 - Constitutional Appears: Well - Head Exam Head Exam: ATRAUMATIC, NORMAL INSPECTION, NORMOCEPHALIC - Eye Exam Eye Exam: EOMI, Normal appearance, PERRL Pupil Exam: NORMAL ACCOMODATION, PERRL - ENT Exam ENT Exam: Mucous Membranes Moist, Normal Exam - Neck Exam Neck Exam: Full ROM, Normal Inspection. absent: Lymphadenopathy - Respiratory Exam Respiratory Exam: Decreased Breath Sounds - Cardiovascular Exam Cardiovascular Exam: REGULAR RHYTHM, +S1, +S2 - GI/Abdominal Exam GI & Abdominal Exam: Soft, Diminished Bowel Sounds - Rectal Exam Rectal Exam: Deferred Assessment and Plan (1) Alcohol intoxication Status: Acute (2) Dehydration Status: Acute (3) Elevated CK Status: Acute (4) Elevated lactic acid level Status: Acute (5) Guaiac positive stools Status: Acute (6) Heat exhaustion Status: Acute (7) Hypokalemia Status: Acute (8) Agitation Status: Acute (9) Alcohol abuse Status: Acute (10) Drug abuse Status: Acute (11) Drug dependence Status: Acute (12) Opioid use disorder, severe, dependence Status: Acute (13) Status post fall Status: Acute (14) Substance abuse Status: Acute
[2017-11-02] MEDS: Sodium Chloride 0.9% 1,000 ML IV SCH ×2 (02:30→14:43)
[2017-11-02] MEDS: Nitroglycerin 2% Ointment Foilpak UD TOP SCH ×4 (05:49→22:00)
[2017-11-02] MEDS: Piperacillin/Tazobact 3.375 GM in Sodium Chloride 100 ML IVPB SCH ×3 (05:52→22:00)
[2017-11-02 07:29] LABS: ALB/GLOB RATIO 1.1 (1.0-2.1); ALBUMIN 3.6 g/dL (3.5-5.0); ALT/SGPT 61 U/L (21-72); AST/SGOT 45 U/L (17-59); BLOOD UREA NITROGEN 15 mg/dL (9-20); CALCIUM 9.2 mg/dl (8.6-10.4); GFR AFRICAN-AMERICAN > 60; GFR NON-AFRICAN AMERICAN > 60
[2017-11-02 07:34] LABS: BASO # 0.1 K/uL (0.0-0.2); BASO % 1.9 % (0.0-2.0); EOS # 0.2 K/uL (0.0-0.7); EOS % 3.1 % (0.0-4.0); HEMOGLOBIN 11.8 g/dL (12.0-18.0); LYMPH # 1.4 K/uL (1.0-4.3); LYMPH % 19.6 % (20.0-40.0); MEAN CELL VOLUME 101.2 fL (80.0-94.0); MEAN CORPUSCULAR HEMOGLOBIN 35.4 pg (27.0-31.0); MEAN CORPUSCULAR HGB CONC 34.9 g/dL (33.0-37.0); MEAN PLATELET VOLUME 7.7 fL (7.2-11.7); MONO # 1.1 K/uL (0.0-0.8); MONO % 15.6 % (0.0-10.0); NEUT # 4.3 K/uL (1.8-7.0); NEUT % 59.8 % (50.0-75.0); RBC 3.35 Mil/uL (4.40-5.90); WHITE BLOOD COUNT 7.2 K/uL (4.8-10.8)
--- NOTE | 2017-11-02 07:36 | CP.PCM.PN ---
<Tarik Leone - Last Filed: 11/02/17 14:47> Subjective - Date & Time of Evaluation Date of Evaluation: 11/02/17 Time of Evaluation: 07:36 - Subjective Subjective: PGY2 Medicine Note for Dr. Phil Atwood Patient seen and examined this morning at bedside. He is currently AAOx3 but house staff reports patient was attempting to get out of bed multiple times over night. Patient states that he wanted to go outside for a walk because he has been inside too long. Patient states that he is feeling much better and believes that his tremors have improved. Patient would like to be discharged home today. Objective - Vital Signs/Intake and Output Vital Signs (last 24 hours): Temp Pulse Resp BP Pulse Ox 98.1 F 65 20 169/95 H 95 11/02/17 00:00 11/02/17 05:45 11/02/17 00:00 11/02/17 05:45 11/02/17 00:00 Intake and Output: 11/02/17 11/02/17 06:59 18:59 Intake Total 1825 Balance 1825 - Medications Medications: Current Medications Albuterol/Ipratropium (Duoneb 3 Mg/0.5 Mg (3 Ml) Ud) 3 ml INH RQ4 PRN PRN Reason: Shortness of Breath Last Admin: 10/29/17 13:25 Dose: 3 ml Amlodipine Besylate (Norvasc) 5 mg PO Q24H [facility] Last Admin: 11/01/17 14:20 Dose: 5 mg Aspirin (Aspirin) 325 mg PO DAILY [facility] Last Admin: 10/26/17 14:55 Dose: Not Given Bacitracin (Bacitracin) 0 gm TOP DAILY [facility] Last Admin: 11/01/17 10:38 Dose: 1 applic Clonidine HCl (Catapres) 0.1 mg PO Q6 PRN PRN Reason: Systolic Blood Pressure Last Admin: 10/30/17 11:15 Dose: 0.1 mg Cyanocobalamin (Vitamin B12 1000 Mcg/Ml Inj) 1,000 mcg IM DAILY [facility] Stop: 11/03/17 10:01 Last Admin: 11/01/17 10:39 Dose: 1,000 mcg Dronabinol (Marinol) 2.5 mg PO BID [facility] Last Admin: 11/01/17 17:04 Dose: 2.5 mg Enoxaparin Sodium (Lovenox) 40 mg SC DAILY [facility] Last Admin: 10/26/17 10:11 Dose: 40 mg Folic Acid (Folic Acid) 1 mg PO DAILY [facility] Last Admin: 11/01/17 10:38 Dose: 1 mg Sodium Chloride (Sodium Chloride 0.9%) 1,000 mls @ 75 mls/hr IV .[id number] [facility] Last Admin: 11/02/17 02:30 Dose: 75 mls/hr Piperacillin Sod/Tazobactam (Sod 3.375 gm/ Sodium Chloride) 100 mls @ 200 mls/ hr IVPB Q8H [facility] PRN Reason: Protocol Last Admin: 11/02/17 05:52 Dose: 200 mls/hr Lorazepam (Ativan) 2 mg IVP Q6H PRN PRN Reason: Agitation Last Admin: 11/01/17 22:59 Dose: 2 mg Multivitamins (Hexavitamin) 1 tab PO DAILY [facility] Last Admin: 11/01/17 10:38 Dose: 1 tab Nicotine (Nicoderm Cq) 1 patch TD DAILY [facility] Last Admin: 11/01/17 10:39 Dose: 1 patch Nitroglycerin (Nitro-Bid 2% Oint) 1 ea TOP Q6H [facility] Last Admin: 11/02/17 05:49 Dose: 1 ea Pantoprazole Sodium (Protonix Ec Tab) 40 mg PO DAILY [facility] Last Admin: 11/01/17 10:39 Dose: 40 mg Saccharomyces Boulardii (Florastor) 250 mg PO BID [facility] Last Admin: 11/01/17 17:03 Dose: 250 mg Thiamine HCl (Vitamin B1 Tab) 100 mg PO DAILY [facility] Last Admin: 11/01/17 10:39 Dose: 100 mg - Labs Labs: 10/30/17 07:38 11/02/17 06:39 PT 11.2 SECONDS (9.7-12.2) 10/26/17 14:23 INR 1.0 10/26/17 14:23 APTT 34 SECONDS (21-34) 10/26/17 14:23 - Constitutional Appears: No Acute Distress, Older Than Stated Age - Head Exam Head Exam: NORMOCEPHALIC - Eye Exam Eye Exam: EOMI, Normal appearance. absent: Scleral icterus Pupil Exam: NORMAL ACCOMODATION, PERRL - ENT Exam ENT Exam: Mucous Membranes Moist - Neck Exam Neck Exam: absent: Lymphadenopathy - Respiratory Exam Respiratory Exam: Clear to Ausculation Bilateral, NORMAL BREATHING PATTERN. absent: Accessory Muscle Use, Rales, Rhonchi, Wheezes, Respiratory Distress - Cardiovascular Exam Cardiovascular Exam: REGULAR RHYTHM, +S1, +S2 Additional comments: ~75 on telemetry - GI/Abdominal Exam GI & Abdominal Exam: Soft. absent: Distended, Firm, Guarding, Rigid, Tenderness - Extremities Exam Extremities Exam: absent: Calf Tenderness, Pedal Edema - Neurological Exam Neurological Exam: Alert, Awake, CN II-XII Intact, Oriented x3 - Psychiatric Exam Psychiatric exam: Flat Affect, Normal Mood - Skin Skin Exam: Dry (no sweating ), Warm Assessment and Plan - Assessment and Plan (Free Text) Plan: Alcohol Abuse - Alcohol Level (10/24/17): 365 - Head CT: No acute intracranial hemorrhage. 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 Suspect minimal chronic periventricular white matter ischemic changes. Mild moderate generalized volume loss. Progressive opacification melendez paranasal sinuses as described. - Psych Consult: Dr. Onofre --> help appreciated - Clonidine .1mg q6prn systolic b/p >160 - NS @75cc/hr - Folic Acid 1mg po daily - Thiamine 100mg po daily - Ativan 2mg IVP q6h prn - received total of 8mg yesterday on 11/01 Altered Mental Status/Lethargy (improving) - poor historian - Head CT (10/24/17): No acute intracranial hemorrhage. 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 Suspect minimal chronic periventricular white matter ischemic changes. Mild moderate generalized volume loss. Progressive opacification melendez paranasal sinuses as described. - f/u CT Head (10/28/17): No acute intracranial pathology. No significant interval change (see full report) Dr. Jenkins, neurology consult * Vit B12 1,000mcg IM daily - 2 of 3 doses - MRI brain w/wo (10/29/17): No acute intracranial abnormality. Moderate cerebral and cerebellar volume loss, advanced for the patient's age. Chronic maxillary sinusitis, worse on right. - EEG: pending - ammonia 16 (10/29) - prolactin 9.3 (10/29) - NAVID negative (10/29/17) Stool Occult Positive - H/H: 11.8/33.9 (11/02/17) - Protonix 40mg IV daily - GI Consult: Dr. Mendoza --> help appreciated - recommend colonoscopy as outpatient - continue 1:1 for pt safety - check B12/phos/folate UDS + - UDS + opiates - Psych Consult: Dr. Onofre --> help appreciated Abnormal ECG: Cardiology Consult: Dr. Moyer --> help appreciated EKG (10/24/17): Diffuse ST segment depression. ECHO (10/29/17): Difficult study, only subcostal view. Borderline concentric LVH, norm LV systolic function, normal MV, mild TR. Hypokalemia (resolved) Monitor Elevated T bili (resolved) Tbili 2.4 max - decreasing 0.7 on 11/02/17 Elevated CPK (resolved) On admission 475 Etiology: cardio believes to be rhabdo Total CK 40 on 10/29 Elevated Liver Enzymes - resolved AST/ALT 45/61 Hepatitis C antibody + HIV negative Elevated Lactic Acid Lactic Acid 2.1 (10/24) ID Consult: Dr. Gatica --> help appreciated Blood cultures (10/26/17): No growth x 5 days Zosyn 3.375gm IVPB q8h (started on 10/25/17) Florastor 250mg daily HTN Cardiology Consult: Dr. Myoer --> help appreciated EKG: Sinus tach @100 bpm, ST segment depression Elevated over course Catapres 0.1 mg PO Q6H PRN Norvasc 5mg PO Daily History COPD Chest Xray: Re- demonstrated are hyperinflation changes both lungs ; rule out underlying COPD or emphysema. Anorexia/Weight loss Ensure supplementation Dietary referral - will ask for calorie count Marinol 5mg PO BID Prophylaxis - SCDs - VTE contraindication - HOLD ASA - Protonix 40mg PO daily DISPO: Patient is still experiencing mild tremors. He received 8mg of Ativan yesterday. Will continue to monitor patient for symptoms of withdrawal. Dr. Atwood discussed with patient that due to him still experiencing tremors and receiving large amount of ativan yesterday. We will continue to monitor him for the next couple of days and discharge him once it can be done safely. Patient agrees and understands. All medical management as per Dr. Phil Atwood <Cherie Atwood - Last Filed: 11/02/17 18:41> Objective - Vital Signs/Intake and Output Vital Signs (last 24 hours): Temp Pulse Resp BP Pulse Ox 98.5 F 86 20 153/94 H 95 11/02/17 16:00 11/02/17 16:00 11/02/17 16:00 11/02/17 16:00 11/02/17 16:00 Intake and Output: 11/02/17 11/02/17 06:59 18:59 Intake Total 1825 950 Balance 1825 950 - Medications Medications: Current Medications Albuterol/Ipratropium (Duoneb 3 Mg/0.5 Mg (3 Ml) Ud) 3 ml INH RQ4 PRN PRN Reason: Shortness of Breath Last Admin: 10/29/17 13:25 Dose: 3 ml Amlodipine Besylate (Norvasc) 5 mg PO Q24H [facility] Last Admin: 11/02/17 14:00 Dose: 5 mg Aspirin (Aspirin) 325 mg PO DAILY [facility] Last Admin: 10/26/17 14:55 Dose: Not Given Bacitracin (Bacitracin) 0 gm TOP DAILY [facility] Last Admin: 11/02/17 10:00 Dose: 1 applic Clonidine HCl (Catapres) 0.1 mg PO Q6 PRN PRN Reason: Systolic Blood Pressure Last Admin: 10/30/17 11:15 Dose: 0.1 mg Cyanocobalamin (Vitamin B12 1000 Mcg/Ml Inj) 1,000 mcg IM DAILY [facility] Stop: 11/03/17 10:01 Last Admin: 11/02/17 10:50 Dose: 1,000 mcg Dronabinol (Marinol) 2.5 mg PO BID [facility] Last Admin: 11/02/17 18:37 Dose: 2.5 mg Enoxaparin Sodium (Lovenox) 40 mg SC DAILY [facility] Last Admin: 10/26/17 10:11 Dose: 40 mg Folic Acid (Folic Acid) 1 mg PO DAILY [facility] Last Admin: 11/02/17 10:44 Dose: 1 mg Sodium Chloride (Sodium Chloride 0.9%) 1,000 mls @ 75 mls/hr IV .[id number] [facility] Last Admin: 11/02/17 14:43 Dose: 75 mls/hr Piperacillin Sod/Tazobactam (Sod 3.375 gm/ Sodium Chloride) 100 mls @ 200 mls/ hr IVPB Q8H [facility] PRN Reason: Protocol Last Admin: 11/02/17 14:00 Dose: 200 mls/hr Lorazepam (Ativan) 2 mg IVP Q6H PRN PRN Reason: Agitation Last Admin: 11/02/17 14:01 Dose: 2 mg Multivitamins (Hexavitamin) 1 tab PO DAILY [facility] Last Admin: 11/02/17 10:44 Dose: 1 tab Nicotine (Nicoderm Cq) 1 patch TD DAILY [facility] Last Admin: 11/02/17 10:45 Dose: 1 patch Nitroglycerin (Nitro-Bid 2% Oint) 1 ea TOP Q6H [facility] Last Admin: 11/02/17 18:37 Dose: 1 ea Pantoprazole Sodium (Protonix Ec Tab) 40 mg PO DAILY [facility] Last Admin: 11/02/17 10:45 Dose: 40 mg Saccharomyces Boulardii (Florastor) 250 mg PO BID [facility] Last Admin: 11/02/17 18:37 Dose: 250 mg Thiamine HCl (Vitamin B1 Tab) 100 mg PO DAILY [facility] Last Admin: 11/02/17 10:43 Dose: 100 mg - Labs Labs: 11/02/17 06:39 11/02/17 06:39 PT 11.2 SECONDS (9.7-12.2) 10/26/17 14:23 INR 1.0 10/26/17 14:23 APTT 34 SECONDS (21-34) 10/26/17 14:23 Assessment and Plan (1) Alcohol intoxication Status: Acute (2) Dehydration Status: Acute (3) Elevated CK Status: Acute (4) Elevated lactic acid level Status: Acute (5) Guaiac positive stools Status: Acute (6) Heat exhaustion Status: Acute (7) Hypokalemia Status: Acute (8) Agitation Status: Acute (9) Alcohol abuse Status: Acute (10) Drug abuse Status: Acute (11) Drug dependence Status: Acute (12) Opioid use disorder, severe, dependence Status: Acute (13) Status post fall Status: Acute (14) Substance abuse Status: Acute - Assessment and Plan (Free Text) Plan: Seen and discussed patient still has tremors but is definitely less than before required a lot of Ativan yesterday so will consider holding the patient's may be if patient is more stable will discharge the patient's tomorrow
[2017-11-02] MEDS: Bacitracin Ointment 30 GM TUBE TOP SCH (10:00)
[2017-11-02] MEDS: Saccharomyces Boulardi 250 mg Cap PO SCH ×2 (10:44→18:37)
[2017-11-02] MEDS: Multiple Vitamins Tab PO SCH (10:44)
[2017-11-02] MEDS: Pantoprazole 40 mg EC Tab PO SCH (10:45)
--- NOTE | 2017-11-02 11:42 | CP.PCM.PN ---
Subjective - Date & Time of Evaluation Date of Evaluation: 11/02/17 Time of Evaluation: 09:30 - Subjective Subjective: clinically same Objective - Vital Signs/Intake and Output Vital Signs (last 24 hours): Temp Pulse Resp BP Pulse Ox 98.0 F 79 20 153/84 H 95 11/02/17 07:25 11/02/17 07:25 11/02/17 07:25 11/02/17 07:25 11/02/17 07:25 Intake and Output: 11/02/17 11/02/17 06:59 18:59 Intake Total 1825 Balance 1825 - Medications Medications: Current Medications Albuterol/Ipratropium (Duoneb 3 Mg/0.5 Mg (3 Ml) Ud) 3 ml INH RQ4 PRN PRN Reason: Shortness of Breath Last Admin: 10/29/17 13:25 Dose: 3 ml Amlodipine Besylate (Norvasc) 5 mg PO Q24H [facility] Last Admin: 11/01/17 14:20 Dose: 5 mg Aspirin (Aspirin) 325 mg PO DAILY [facility] Last Admin: 10/26/17 14:55 Dose: Not Given Bacitracin (Bacitracin) 0 gm TOP DAILY [facility] Last Admin: 11/01/17 10:38 Dose: 1 applic Clonidine HCl (Catapres) 0.1 mg PO Q6 PRN PRN Reason: Systolic Blood Pressure Last Admin: 10/30/17 11:15 Dose: 0.1 mg Cyanocobalamin (Vitamin B12 1000 Mcg/Ml Inj) 1,000 mcg IM DAILY [facility] Stop: 11/03/17 10:01 Last Admin: 11/02/17 10:50 Dose: 1,000 mcg Dronabinol (Marinol) 2.5 mg PO BID [facility] Last Admin: 11/02/17 10:50 Dose: 2.5 mg Enoxaparin Sodium (Lovenox) 40 mg SC DAILY [facility] Last Admin: 10/26/17 10:11 Dose: 40 mg Folic Acid (Folic Acid) 1 mg PO DAILY [facility] Last Admin: 11/02/17 10:44 Dose: 1 mg Sodium Chloride (Sodium Chloride 0.9%) 1,000 mls @ 75 mls/hr IV .[id number] [facility] Last Admin: 11/02/17 02:30 Dose: 75 mls/hr Piperacillin Sod/Tazobactam (Sod 3.375 gm/ Sodium Chloride) 100 mls @ 200 mls/ hr IVPB Q8H [facility] PRN Reason: Protocol Last Admin: 11/02/17 05:52 Dose: 200 mls/hr Lorazepam (Ativan) 2 mg IVP Q6H PRN PRN Reason: Agitation Last Admin: 11/02/17 08:10 Dose: 2 mg Multivitamins (Hexavitamin) 1 tab PO DAILY [facility] Last Admin: 11/02/17 10:44 Dose: 1 tab Nicotine (Nicoderm Cq) 1 patch TD DAILY [facility] Last Admin: 11/02/17 10:45 Dose: 1 patch Nitroglycerin (Nitro-Bid 2% Oint) 1 ea TOP Q6H [facility] Last Admin: 11/02/17 05:49 Dose: 1 ea Pantoprazole Sodium (Protonix Ec Tab) 40 mg PO DAILY [facility] Last Admin: 11/02/17 10:45 Dose: 40 mg Saccharomyces Boulardii (Florastor) 250 mg PO BID [facility] Last Admin: 11/02/17 10:44 Dose: 250 mg Thiamine HCl (Vitamin B1 Tab) 100 mg PO DAILY [facility] Last Admin: 11/02/17 10:43 Dose: 100 mg - Labs Labs: 11/02/17 06:39 11/02/17 06:39 PT 11.2 SECONDS (9.7-12.2) 10/26/17 14:23 INR 1.0 10/26/17 14:23 APTT 34 SECONDS (21-34) 10/26/17 14:23 - Constitutional Appears: Well - Head Exam Head Exam: ATRAUMATIC, NORMAL INSPECTION, NORMOCEPHALIC - Eye Exam Eye Exam: EOMI, Normal appearance, PERRL Pupil Exam: NORMAL ACCOMODATION, PERRL - ENT Exam ENT Exam: Mucous Membranes Moist, Normal Exam - Neck Exam Neck Exam: Full ROM, Normal Inspection. absent: Lymphadenopathy - Respiratory Exam Respiratory Exam: Decreased Breath Sounds - Cardiovascular Exam Cardiovascular Exam: REGULAR RHYTHM, +S1, +S2 - GI/Abdominal Exam GI & Abdominal Exam: Soft, Diminished Bowel Sounds - Rectal Exam Rectal Exam: Deferred Assessment and Plan (1) Alcohol intoxication Status: Acute (2) Dehydration Status: Acute (3) Elevated CK Status: Acute (4) Elevated lactic acid level Status: Acute (5) Guaiac positive stools Status: Acute (6) Heat exhaustion Status: Acute (7) Hypokalemia Status: Acute (8) Agitation Status: Acute (9) Alcohol abuse Status: Acute (10) Drug abuse Status: Acute (11) Drug dependence Status: Acute (12) Opioid use disorder, severe, dependence Status: Acute (13) Status post fall Status: Acute (14) Substance abuse Status: Acute - Assessment and Plan (Free Text) Assessment: Patient wants to go home 10 medicine
--- NOTE | 2017-11-02 11:53 | PN ---
DATE: 11/02/2017 TIME OF EVALUATION: 07:05 a.m. NEUROLOGIC PROBLEM: EtOH-related change in mental status. No sign of Wernicke encephalopathy or Korsakoff psychosis. PHYSICAL EXAMINATION VITAL SIGNS: Blood pressure of 169/95 with mean artery pressure of 119, pulse rate is 65. GENERAL: The patient is awake and alert. He follows two-step command. No confusion or psychosis present. EXTREMITIES: He moves all four extremities against gravity. Rest of the examination is unchanged compared with the previous examination. RECOMMENDATION: Continue multivitamin, proper hydration, getting out of the bed, and physical therapy. service should be involved for followup since. The patient will be followed while he is in the hospital. Garry Jenkins MD
--- NOTE | 2017-11-03 04:39 | EEG ---
DATE: 11/01/2017 This is a 16-channel electroencephalogram of awake and drowsy adult. During the study, photic stimulation was performed. Hyperventilation was not performed. The resting electroencephalogram consist of low amplitude, fast 14 to 16 Hz beta activity, seen diffusely in bilateral cortical leads which is contaminated with intermittent movement artifact. This fast beta activity is superimposed with high amplitude, 2 to 3 Hz of delta activities seen intermittently. The photic stimulation did not evoke driving response noted at 2 to 20 Hz. At times, the patient shows 4 to 5 Hz background theta activities. The photic stimulation did not evoke driving response noted at 2 to 20 Hz. IMPRESSION: This is abnormal electroencephalogram because of persistent slowing throughout the record suggestive of bilateral cerebral dysfunction. This probably is secondary to metabolic, vascular, or degenerative process. Please correlate the findings with neurological and radiological studies. Garry Jenkins MD
[2017-11-03] MEDS: Piperacillin/Tazobact 3.375 GM in Sodium Chloride 100 ML IVPB SCH ×3 (05:47→22:02)
[2017-11-03] MEDS: Nitroglycerin 2% Ointment Foilpak UD TOP SCH ×4 (05:47→22:02)
--- NOTE | 2017-11-03 07:06 | CP.PCM.PN ---
Subjective - Date & Time of Evaluation Date of Evaluation: 11/03/17 Time of Evaluation: 07:06 - Subjective Subjective: PGY2 Medicine Note for Dr. Phil Atwood Patient seen and examined this morning at bedside. No acute events overnight. Patient is stating he is experiencing pain from head to toe. He is requesting that he be allowed to get up and walk because he feels that his pain is secondary to sitting in bed for a week straight. He reports improvement of tremors and is hopeful to go home either today or tomorrow. Objective - Vital Signs/Intake and Output Vital Signs (last 24 hours): Temp Pulse Resp BP Pulse Ox 98.3 F 77 20 167/94 H 97 11/02/17 23:55 11/03/17 05:42 11/02/17 23:55 11/03/17 05:42 11/03/17 00:00 Intake and Output: 11/03/17 11/03/17 06:59 18:59 Intake Total 900 Output Total 750 Balance 150 - Medications Medications: Current Medications Albuterol/Ipratropium (Duoneb 3 Mg/0.5 Mg (3 Ml) Ud) 3 ml INH RQ4 PRN PRN Reason: Shortness of Breath Last Admin: 10/29/17 13:25 Dose: 3 ml Amlodipine Besylate (Norvasc) 5 mg PO Q24H [facility] Last Admin: 11/02/17 14:00 Dose: 5 mg Aspirin (Aspirin) 325 mg PO DAILY [facility] Last Admin: 10/26/17 14:55 Dose: Not Given Bacitracin (Bacitracin) 0 gm TOP DAILY [facility] Last Admin: 11/02/17 10:00 Dose: 1 applic Clonidine HCl (Catapres) 0.1 mg PO Q6 PRN PRN Reason: Systolic Blood Pressure Last Admin: 10/30/17 11:15 Dose: 0.1 mg Cyanocobalamin (Vitamin B12 1000 Mcg/Ml Inj) 1,000 mcg IM DAILY [facility] Stop: 11/03/17 10:01 Last Admin: 11/02/17 10:50 Dose: 1,000 mcg Dronabinol (Marinol) 2.5 mg PO BID [facility] Last Admin: 11/02/17 18:37 Dose: 2.5 mg Enoxaparin Sodium (Lovenox) 40 mg SC DAILY [facility] Last Admin: 10/26/17 10:11 Dose: 40 mg Folic Acid (Folic Acid) 1 mg PO DAILY [facility] Last Admin: 11/02/17 10:44 Dose: 1 mg Sodium Chloride (Sodium Chloride 0.9%) 1,000 mls @ 75 mls/hr IV .[id number] [facility] Last Admin: 11/02/17 14:43 Dose: 75 mls/hr Piperacillin Sod/Tazobactam (Sod 3.375 gm/ Sodium Chloride) 100 mls @ 200 mls/ hr IVPB Q8H [facility] PRN Reason: Protocol Last Admin: 11/03/17 05:47 Dose: 200 mls/hr Lorazepam (Ativan) 2 mg IVP Q6H PRN PRN Reason: Agitation Last Admin: 11/02/17 20:36 Dose: 2 mg Multivitamins (Hexavitamin) 1 tab PO DAILY [facility] Last Admin: 11/02/17 10:44 Dose: 1 tab Nicotine (Nicoderm Cq) 1 patch TD DAILY [facility] Last Admin: 11/02/17 10:45 Dose: 1 patch Nitroglycerin (Nitro-Bid 2% Oint) 1 ea TOP Q6H [facility] Last Admin: 11/03/17 05:47 Dose: 1 ea Pantoprazole Sodium (Protonix Ec Tab) 40 mg PO DAILY [facility] Last Admin: 11/02/17 10:45 Dose: 40 mg Saccharomyces Boulardii (Florastor) 250 mg PO BID [facility] Last Admin: 11/02/17 18:37 Dose: 250 mg Thiamine HCl (Vitamin B1 Tab) 100 mg PO DAILY [facility] Last Admin: 11/02/17 10:43 Dose: 100 mg - Labs Labs: 11/02/17 06:39 11/02/17 06:39 PT 11.2 SECONDS (9.7-12.2) 10/26/17 14:23 INR 1.0 10/26/17 14:23 APTT 34 SECONDS (21-34) 10/26/17 14:23 - Constitutional Appears: Non-toxic, No Acute Distress, Unkempt - Head Exam Head Exam: NORMOCEPHALIC - Eye Exam Eye Exam: EOMI, Normal appearance, PERRL. absent: Scleral icterus Pupil Exam: NORMAL ACCOMODATION - ENT Exam ENT Exam: Mucous Membranes Moist - Neck Exam Neck Exam: absent: Lymphadenopathy - Respiratory Exam Respiratory Exam: Clear to Ausculation Bilateral, NORMAL BREATHING PATTERN. absent: Accessory Muscle Use, Rales, Rhonchi, Wheezes, Respiratory Distress - Cardiovascular Exam Cardiovascular Exam: REGULAR RHYTHM, +S1, +S2 - GI/Abdominal Exam GI & Abdominal Exam: Soft. absent: Distended, Firm, Guarding, Rigid, Tenderness - Extremities Exam Extremities Exam: absent: Calf Tenderness, Pedal Edema - Neurological Exam Neurological Exam: Alert, Awake, CN II-XII Intact, Oriented x3 Additional comments: mild hand tremors b/l - Psychiatric Exam Psychiatric exam: Flat Affect, Normal Mood - Skin Skin Exam: Dry, Warm Assessment and Plan - Assessment and Plan (Free Text) Plan: Alcohol Abuse - Alcohol Level (10/24/17): 365 - Head CT: No acute intracranial hemorrhage. 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 Suspect minimal chronic periventricular white matter ischemic changes. Mild moderate generalized volume loss. Progressive opacification melendez paranasal sinuses as described. - Psych Consult: Dr. Onofre --> help appreciated - Clonidine .1mg q6prn systolic b/p >160 - NS @75cc/hr - Folic Acid 1mg po daily - Thiamine 100mg po daily - Multivitamin 1 tab po daily - Ativan 2mg IVP q6h prn - received total of 6mg yesterday on 11/02 - continue to ween down, discussed with nursing staff Altered Mental Status/Lethargy (resolved) - poor historian; AAOx3 today - Head CT (10/24/17): No acute intracranial hemorrhage. 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 Suspect minimal chronic periventricular white matter ischemic changes. Mild moderate generalized volume loss. Progressive opacification melendez paranasal sinuses as described. - repeat Head CT (10/28/17): No acute intracranial pathology. No significant interval change (see full report) Dr. Jenkins, neurology consult * Vit B12 1,000mcg IM daily - 2 of 3 doses given so far - MRI brain w/wo (10/29/17): No acute intracranial abnormality. Moderate cerebral and cerebellar volume loss, advanced for the patient's age. Chronic maxillary sinusitis, worse on right. - EEG: pending - ammonia 16 (10/29) - prolactin 9.3 (10/29) - NAVID negative (10/29/17) Generalized Body Pain - Tylenol 650mg PO q6h prn Stool Occult Positive - H/H: 12.4/35.5 (11/03/17) - Protonix 40mg IV daily - GI Consult: Dr. Mendoza --> help appreciated - recommend colonoscopy as outpatient - continue 1:1 for pt safety - check B12/phos/folate UDS + - UDS + opiates - Psych Consult: Dr. Onofre --> help appreciated Abnormal ECG: Cardiology Consult: Dr. Moyer --> help appreciated EKG (10/24/17): Diffuse ST segment depression. ECHO (10/29/17): Difficult study, only subcostal view. Borderline concentric LVH, norm LV systolic function, normal MV, mild TR. Hypokalemia (resolved) Monitor Elevated T bili (resolved) Tbili 2.4 max - decreasing 0.6 on 11/03/17 Elevated CPK (resolved) On admission 475 Etiology: cardio believes to be rhabdo Total CK 40 on 10/29 Elevated Liver Enzymes - resolved AST/ALT 26/52 Hepatitis C antibody + HIV negative Elevated Lactic Acid afebrile Lactic Acid 2.1 (10/24) ID Consult: Dr. Gatica --> help appreciated Blood cultures (10/26/17): No growth x 5 days Zosyn 3.375gm IVPB q8h (started on 10/25/17) Florastor 250mg daily HTN Cardiology Consult: Dr. Moyer --> help appreciated EKG: Sinus tach @100 bpm, ST segment depression Elevated over course, 135/85 this morning Catapres 0.1 mg PO Q6H PRN Norvasc 5mg PO Daily History COPD Chest Xray: Re- demonstrated are hyperinflation changes both lungs Anorexia/Weight loss Ensure supplementation Dietary referral Marinol 2.5mg PO BID Hx of Tobacco Abuse Nicotine patch 14mg/24hr TD daily Discussed smoking cessation Prophylaxis - SCDs - VTE contraindication - HOLD ASA - Protonix 40mg PO daily - PT DISPO: Patient is still experiencing mild tremors. We are continuing to ween off Ativan. Patient received 6mg of Ativan yesterday. Will continue to monitor patient for symptoms of withdrawal. Will hopefully look to discharge possibly tomorrow. All medical management as per Dr. Phil Atwood
[2017-11-03] MEDS: Sodium Chloride 0.9% 1,000 ML IV SCH ×2 (07:54→22:14)
[2017-11-03 08:47] LABS: BASO # 0.1 K/uL (0.0-0.2); BASO % 1.5 % (0.0-2.0); EOS # 0.2 K/uL (0.0-0.7); EOS % 2.9 % (0.0-4.0); HEMOGLOBIN 12.4 g/dL (12.0-18.0); LYMPH # 1.3 K/uL (1.0-4.3); MEAN CELL VOLUME 101.4 fL (80.0-94.0); MEAN CORPUSCULAR HEMOGLOBIN 35.5 pg (27.0-31.0); MEAN PLATELET VOLUME 7.4 fL (7.2-11.7); MONO % 11.8 % (0.0-10.0); NEUT # 5.6 K/uL (1.8-7.0); NEUT % 67.8 % (50.0-75.0); NRBC % 0.1 % (0.0-2.0); RBC 3.5 Mil/uL (4.40-5.90); RED CELL DISTRIBUTION WIDTH 13.1 % (11.5-14.5); WHITE BLOOD COUNT 8.2 K/uL (4.8-10.8)
[2017-11-03 09:22] LABS: ALB/GLOB RATIO 1.1 (1.0-2.1); ALBUMIN 3.7 g/dL (3.5-5.0); ALT/SGPT 52 U/L (21-72); AST/SGOT 26 U/L (17-59); BLOOD UREA NITROGEN 21 mg/dL (9-20); CALCIUM 9.1 mg/dl (8.6-10.4); GFR AFRICAN-AMERICAN > 60; GFR NON-AFRICAN AMERICAN > 60
[2017-11-03] MEDS: Multiple Vitamins Tab PO SCH (10:10)
[2017-11-03] MEDS: Pantoprazole 40 mg EC Tab PO SCH (10:10)
[2017-11-03] MEDS: Saccharomyces Boulardi 250 mg Cap PO SCH ×2 (10:11→17:43)
[2017-11-03] MEDS: Bacitracin Ointment 30 GM TUBE TOP SCH (10:12)
[2017-11-03 16:05] VITALS: RESP 20
--- NOTE | 2017-11-03 20:45 | CP.PCM.PN ---
Subjective - Date & Time of Evaluation Date of Evaluation: 11/03/17 Time of Evaluation: 09:40 - Subjective Subjective: clinically same Objective - Vital Signs/Intake and Output Vital Signs (last 24 hours): Temp Pulse Resp BP Pulse Ox 98 F 84 20 137/79 97 11/03/17 15:45 11/03/17 15:45 11/03/17 15:45 11/03/17 15:45 11/03/17 15:45 Intake and Output: 11/03/17 11/04/17 18:59 06:59 Intake Total 1100 Balance 1100 - Medications Medications: Current Medications Acetaminophen (Tylenol 325mg Tab) 650 mg PO Q6 PRN PRN Reason: Pain, moderate (4-7) Last Admin: 11/03/17 10:11 Dose: 650 mg Albuterol/Ipratropium (Duoneb 3 Mg/0.5 Mg (3 Ml) Ud) 3 ml INH RQ4 PRN PRN Reason: Shortness of Breath Last Admin: 10/29/17 13:25 Dose: 3 ml Amlodipine Besylate (Norvasc) 5 mg PO Q24H [facility] Last Admin: 11/03/17 13:04 Dose: 5 mg Aspirin (Aspirin) 325 mg PO DAILY [facility] Last Admin: 10/26/17 14:55 Dose: Not Given Bacitracin (Bacitracin) 0 gm TOP DAILY [facility] Last Admin: 11/03/17 10:12 Dose: 1 applic Clonidine HCl (Catapres) 0.1 mg PO Q6 PRN PRN Reason: Systolic Blood Pressure Last Admin: 10/30/17 11:15 Dose: 0.1 mg Dronabinol (Marinol) 2.5 mg PO BID [facility] Last Admin: 11/03/17 17:43 Dose: 2.5 mg Enoxaparin Sodium (Lovenox) 40 mg SC DAILY [facility] Last Admin: 10/26/17 10:11 Dose: 40 mg Folic Acid (Folic Acid) 1 mg PO DAILY [facility] Last Admin: 11/03/17 10:10 Dose: 1 mg Sodium Chloride (Sodium Chloride 0.9%) 1,000 mls @ 75 mls/hr IV .[id number] [facility] Last Admin: 11/03/17 07:54 Dose: 75 mls/hr Piperacillin Sod/Tazobactam (Sod 3.375 gm/ Sodium Chloride) 100 mls @ 200 mls/ hr IVPB Q8H [facility] PRN Reason: Protocol Last Admin: 11/03/17 13:39 Dose: 200 mls/hr Lorazepam (Ativan) 2 mg IVP Q6H PRN PRN Reason: Agitation Last Admin: 11/02/17 20:36 Dose: 2 mg Multivitamins (Hexavitamin) 1 tab PO DAILY [facility] Last Admin: 11/03/17 10:10 Dose: 1 tab Nicotine (Nicoderm Cq) 1 patch TD DAILY [facility] Last Admin: 11/03/17 10:11 Dose: 1 patch Nitroglycerin (Nitro-Bid 2% Oint) 1 ea TOP Q6H [facility] Last Admin: 11/03/17 17:43 Dose: 1 ea Pantoprazole Sodium (Protonix Ec Tab) 40 mg PO DAILY [facility] Last Admin: 11/03/17 10:10 Dose: 40 mg Saccharomyces Boulardii (Florastor) 250 mg PO BID [facility] Last Admin: 11/03/17 17:43 Dose: 250 mg Thiamine HCl (Vitamin B1 Tab) 100 mg PO DAILY [facility] Last Admin: 11/03/17 10:10 Dose: 100 mg - Labs Labs: 11/03/17 08:35 11/03/17 08:35 PT 11.2 SECONDS (9.7-12.2) 10/26/17 14:23 INR 1.0 10/26/17 14:23 APTT 34 SECONDS (21-34) 10/26/17 14:23 - Constitutional Appears: Well - Head Exam Head Exam: ATRAUMATIC, NORMAL INSPECTION, NORMOCEPHALIC - Eye Exam Eye Exam: EOMI, Normal appearance, PERRL Pupil Exam: NORMAL ACCOMODATION, PERRL - ENT Exam ENT Exam: Mucous Membranes Moist, Normal Exam - Neck Exam Neck Exam: Full ROM, Normal Inspection. absent: Lymphadenopathy - Respiratory Exam Respiratory Exam: Decreased Breath Sounds - Cardiovascular Exam Cardiovascular Exam: REGULAR RHYTHM, +S1, +S2 - GI/Abdominal Exam GI & Abdominal Exam: Soft, Diminished Bowel Sounds - Rectal Exam Rectal Exam: Deferred Assessment and Plan (1) Alcohol intoxication Status: Acute (2) Dehydration Status: Acute (3) Elevated CK Status: Acute (4) Elevated lactic acid level Status: Acute (5) Guaiac positive stools Status: Acute (6) Heat exhaustion Status: Acute (7) Hypokalemia Status: Acute (8) Agitation Status: Acute (9) Alcohol abuse Status: Acute (10) Drug abuse Status: Acute (11) Drug dependence Status: Acute (12) Opioid use disorder, severe, dependence Status: Acute (13) Status post fall Status: Acute (14) Substance abuse Status: Acute
[2017-11-03 23:47] VITALS: O2SAT 96
[2017-11-04] MEDS: Nitroglycerin 2% Ointment Foilpak UD TOP SCH ×2 (05:56→10:09)
[2017-11-04] MEDS: Piperacillin/Tazobact 3.375 GM in Sodium Chloride 100 ML IVPB SCH (05:56)
--- NOTE | 2017-11-04 07:47 | CP.PCM.PN ---
Subjective - Date & Time of Evaluation Date of Evaluation: 11/04/17 Time of Evaluation: 07:45 - Subjective Subjective: PGY2 Medicine Note for Dr. Phil Atwood Patient seen and examined this morning at bedside. No acute events over night. Patient is in good spirits and states that he would like to go home today. His tremors have improved. He is AAOx3, joking around and in good spirits. He has no complaints at this time. Objective - Vital Signs/Intake and Output Vital Signs (last 24 hours): Temp Pulse Resp BP Pulse Ox 97.8 F 73 20 159/87 H 96 11/03/17 23:05 11/04/17 05:45 11/03/17 23:05 11/04/17 05:45 11/03/17 23:05 Intake and Output: 11/04/17 11/04/17 06:59 18:59 Intake Total 725 Output Total 300 Balance 425 - Medications Medications: Current Medications Acetaminophen (Tylenol 325mg Tab) 650 mg PO Q6 PRN PRN Reason: Pain, moderate (4-7) Last Admin: 11/03/17 10:11 Dose: 650 mg Albuterol/Ipratropium (Duoneb 3 Mg/0.5 Mg (3 Ml) Ud) 3 ml INH RQ4 PRN PRN Reason: Shortness of Breath Last Admin: 10/29/17 13:25 Dose: 3 ml Amlodipine Besylate (Norvasc) 5 mg PO Q24H [facility] Last Admin: 11/03/17 13:04 Dose: 5 mg Aspirin (Aspirin) 325 mg PO DAILY [facility] Last Admin: 10/26/17 14:55 Dose: Not Given Bacitracin (Bacitracin) 0 gm TOP DAILY [facility] Last Admin: 11/03/17 10:12 Dose: 1 applic Clonidine HCl (Catapres) 0.1 mg PO Q6 PRN PRN Reason: Systolic Blood Pressure Last Admin: 10/30/17 11:15 Dose: 0.1 mg Dronabinol (Marinol) 2.5 mg PO BID [facility] Last Admin: 11/03/17 17:43 Dose: 2.5 mg Enoxaparin Sodium (Lovenox) 40 mg SC DAILY [facility] Last Admin: 10/26/17 10:11 Dose: 40 mg Folic Acid (Folic Acid) 1 mg PO DAILY [facility] Last Admin: 11/03/17 10:10 Dose: 1 mg Sodium Chloride (Sodium Chloride 0.9%) 1,000 mls @ 75 mls/hr IV .[id number] [facility] Last Admin: 11/03/17 22:14 Dose: 75 mls/hr Piperacillin Sod/Tazobactam (Sod 3.375 gm/ Sodium Chloride) 100 mls @ 200 mls/ hr IVPB Q8H ABIGAIL PRN Reason: Protocol Last Admin: 11/04/17 05:56 Dose: 200 mls/hr Lorazepam (Ativan) 2 mg IVP Q6H PRN PRN Reason: Agitation Last Admin: 11/03/17 22:13 Dose: 2 mg Multivitamins (Hexavitamin) 1 tab PO DAILY [facility] Last Admin: 11/03/17 10:10 Dose: 1 tab Nicotine (Nicoderm Cq) 1 patch TD DAILY [facility] Last Admin: 11/03/17 10:11 Dose: 1 patch Nitroglycerin (Nitro-Bid 2% Oint) 1 ea TOP Q6H [facility] Last Admin: 11/04/17 05:56 Dose: 1 ea Pantoprazole Sodium (Protonix Ec Tab) 40 mg PO DAILY [facility] Last Admin: 11/03/17 10:10 Dose: 40 mg Saccharomyces Boulardii (Florastor) 250 mg PO BID [facility] Last Admin: 11/03/17 17:43 Dose: 250 mg Thiamine HCl (Vitamin B1 Tab) 100 mg PO DAILY [facility] Last Admin: 11/03/17 10:10 Dose: 100 mg - Labs Labs: 11/03/17 08:35 11/03/17 08:35 PT 11.2 SECONDS (9.7-12.2) 10/26/17 14:23 INR 1.0 10/26/17 14:23 APTT 34 SECONDS (21-34) 10/26/17 14:23 - Constitutional Appears: Non-toxic, No Acute Distress, Unkempt - Head Exam Head Exam: ATRAUMATIC, NORMOCEPHALIC - Eye Exam Eye Exam: EOMI, Normal appearance. absent: Scleral icterus - ENT Exam ENT Exam: Mucous Membranes Moist - Neck Exam Neck Exam: absent: Lymphadenopathy - Respiratory Exam Respiratory Exam: Clear to Ausculation Bilateral, NORMAL BREATHING PATTERN. absent: Accessory Muscle Use, Rales, Rhonchi, Wheezes, Respiratory Distress - Cardiovascular Exam Cardiovascular Exam: REGULAR RHYTHM, +S1, +S2 - GI/Abdominal Exam GI & Abdominal Exam: Soft, Normal Bowel Sounds. absent: Distended, Firm, Guarding, Rigid, Tenderness - Extremities Exam Extremities Exam: absent: Calf Tenderness, Pedal Edema - Neurological Exam Neurological Exam: Alert, Awake, CN II-XII Intact, Oriented x3 - Psychiatric Exam Psychiatric exam: Normal Affect, Normal Mood - Skin Skin Exam: Dry, Warm Assessment and Plan - Assessment and Plan (Free Text) Plan: Alcohol Withdrawal - Alcohol Level (10/24/17): 365 - Head CT: No acute intracranial hemorrhage. 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 Suspect minimal chronic periventricular white matter ischemic changes. Mild moderate generalized volume loss. Progressive opacification melendez paranasal sinuses as described. - Psych Consult: Dr. Onofre --> help appreciated - Clonidine .1mg q6prn systolic b/p >160 - NS @75cc/hr - Folic Acid 1mg po daily - Thiamine 100mg po daily - Multivitamin 1 tab po daily - Ativan 2mg IVP q6h prn - received total of 6mg yesterday on 11/02 - continue to ween down, discussed with nursing staff Altered Mental Status/Lethargy (resolved) - poor historian; AAOx3 today - Head CT (10/24/17): No acute intracranial hemorrhage. 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 Suspect minimal chronic periventricular white matter ischemic changes. Mild moderate generalized volume loss. Progressive opacification melendez paranasal sinuses as described. - repeat Head CT (10/28/17): No acute intracranial pathology. No significant interval change (see full report) Dr. Jenkins, neurology consult * Vit B12 1,000mcg IM daily - 2 of 3 doses given so far - MRI brain w/wo (10/29/17): No acute intracranial abnormality. Moderate cerebral and cerebellar volume loss, advanced for the patient's age. Chronic maxillary sinusitis, worse on right. - ammonia 16 (10/29) - prolactin 9.3 (10/29) - NAVID negative (10/29/17) Generalized Body Pain - Tylenol 650mg PO q6h prn Stool Occult Positive - H/H: 11.9/35.2 (11/04/17) - Protonix 40mg IV daily - GI Consult: Dr. Mendoza --> help appreciated - recommend colonoscopy as outpatient - continue 1:1 for pt safety - check B12/phos/folate UDS + - UDS + opiates - Psych Consult: Dr. Onofre --> help appreciated Abnormal ECG: Cardiology Consult: Dr. Moyer --> help appreciated EKG (10/24/17): Diffuse ST segment depression. ECHO (10/29/17): Difficult study, only subcostal view. Borderline concentric LVH, norm LV systolic function, normal MV, mild TR. Hypokalemia (resolved) K+ 3.5 Repleated Elevated T bili (resolved) Tbili 2.4 max - decreasing 0.7 on 11/04/17 Elevated CPK (resolved) On admission 475 Etiology: cardio believes to be rhabdo Total CK 40 on 10/29 Elevated Liver Enzymes - resolved AST/ALT 23/34 Hepatitis C antibody + HIV negative Elevated Lactic Acid afebrile Lactic Acid 2.1 (10/24) ID Consult: Dr. Gatica --> help appreciated Blood cultures (10/26/17): No growth x 5 days Zosyn 3.375gm IVPB q8h (started on 10/25/17) Florastor 250mg daily HTN Cardiology Consult: Dr. Moyer --> help appreciated EKG: Sinus tach @100 bpm, ST segment depression Elevated over course, 135/85 this morning Catapres 0.1 mg PO Q6H PRN Norvasc 5mg PO Daily History COPD Chest Xray: Re- demonstrated are hyperinflation changes both lungs Anorexia/Weight loss Ensure supplementation Dietary referral Marinol 2.5mg PO BID Hx of Tobacco Abuse Nicotine patch 14mg/24hr TD daily Discussed smoking cessation Prophylaxis - SCDs - VTE contraindication - HOLD ASA - Protonix 40mg PO daily - PT DISPO: Patient is to be discharged home per Dr. Phil Atwood. Patient is to follow up with his primary care physician within one week. If patient does not have a primary care physician, he is to follow up with [facility] located in the basement of [facility]. Please call and schedule an appointment. Patient has been advised multiple times on the importance of avoiding alcohol as this was a major reason for him being in the hospital for an extended duration. He states is understands and agrees that he needs to avoid alcohol once discharged. New medications: - Amlodipine 5mg, take once by mouth per day - dispense 30 tabs. - Folic Acid 1mg, take once by mouth per day - dispense 30 tabs. - Multivitamins 1 tab, take once by mouth per day - dispense 30 tabs. - Thiamine 100mg, take once by mouth per day - dispense 30 tabs. Patient given a prescription for 1 Quad Cane. Patient is to use cane as he is unsteady on his feet. If patient experiences any new or worsening symptoms, please go directly to the nearest emergency department. Take care and be well. All medical management as per Dr. Phil Atwood
[2017-11-04 08:05] VITALS: BP 155/80; PULSE 81; TEMP 97.7
[2017-11-04 08:51] LABS: BASO # 0.2 K/uL (0.0-0.2); BASO % 2.1 % (0.0-2.0); EOS # 0.2 K/uL (0.0-0.7); EOS % 2.8 % (0.0-4.0); HEMOGLOBIN 11.9 g/dL (12.0-18.0); LYMPH # 1.4 K/uL (1.0-4.3); LYMPH % 16.7 % (20.0-40.0); MEAN CELL VOLUME 101.8 fL (80.0-94.0); MEAN CORPUSCULAR HEMOGLOBIN 34.4 pg (27.0-31.0); MEAN CORPUSCULAR HGB CONC 33.8 g/dL (33.0-37.0); MEAN PLATELET VOLUME 7.6 fL (7.2-11.7); MONO # 0.9 K/uL (0.0-0.8); MONO % 10.6 % (0.0-10.0); NEUT # 5.5 K/uL (1.8-7.0); NEUT % 67.8 % (50.0-75.0); NRBC % 0.1 % (0.0-2.0); RBC 3.46 Mil/uL (4.40-5.90); RED CELL DISTRIBUTION WIDTH 12.8 % (11.5-14.5); WHITE BLOOD COUNT 8.1 K/uL (4.8-10.8)
[2017-11-04 09:13] LABS: ALB/GLOB RATIO 1.2 (1.0-2.1); ALBUMIN 3.7 g/dL (3.5-5.0); ALT/SGPT 34 U/L (21-72); AST/SGOT 23 U/L (17-59); BLOOD UREA NITROGEN 15 mg/dL (9-20); CALCIUM 9.1 mg/dl (8.6-10.4); GFR AFRICAN-AMERICAN > 60; GFR NON-AFRICAN AMERICAN > 60
[2017-11-04] MEDS: Multiple Vitamins Tab PO SCH (09:59)
[2017-11-04] MEDS: Saccharomyces Boulardi 250 mg Cap PO SCH (10:00)
[2017-11-04] MEDS: Pantoprazole 40 mg EC Tab PO SCH (10:00)
[2017-11-04] MEDS ORDERED: Potassium Chloride 20 mEq ER Tab PO ONE (10:00)
[2017-11-04] MEDS: Bacitracin Ointment 30 GM TUBE TOP SCH (10:03)
--- NOTE | 2017-11-04 14:11 | CP.PCM.PN ---
Subjective - Date & Time of Evaluation Date of Evaluation: 11/04/17 Time of Evaluation: 10:30 - Subjective Subjective: clinically same Objective - Vital Signs/Intake and Output Vital Signs (last 24 hours): Temp Pulse Resp BP Pulse Ox 97.7 F 81 20 155/80 H 96 11/04/17 07:25 11/04/17 07:25 11/04/17 07:25 11/04/17 07:25 11/04/17 07:25 Intake and Output: 11/04/17 11/04/17 06:59 18:59 Intake Total 725 400 Output Total 300 Balance 425 400 - Labs Labs: 11/04/17 08:32 11/04/17 08:32 PT 11.2 SECONDS (9.7-12.2) 10/26/17 14:23 INR 1.0 10/26/17 14:23 APTT 34 SECONDS (21-34) 10/26/17 14:23 - Constitutional Appears: Well - Head Exam Head Exam: ATRAUMATIC, NORMAL INSPECTION, NORMOCEPHALIC - Eye Exam Eye Exam: EOMI, Normal appearance, PERRL Pupil Exam: NORMAL ACCOMODATION, PERRL - ENT Exam ENT Exam: Mucous Membranes Moist, Normal Exam - Neck Exam Neck Exam: Full ROM, Normal Inspection. absent: Lymphadenopathy - Respiratory Exam Respiratory Exam: Decreased Breath Sounds - Cardiovascular Exam Cardiovascular Exam: REGULAR RHYTHM, +S1, +S2 - GI/Abdominal Exam GI & Abdominal Exam: Soft, Diminished Bowel Sounds - Rectal Exam Rectal Exam: Deferred Assessment and Plan (1) Alcohol intoxication Status: Acute (2) Dehydration Status: Acute (3) Elevated CK Status: Acute (4) Elevated lactic acid level Status: Acute (5) Guaiac positive stools Status: Acute (6) Heat exhaustion Status: Acute (7) Hypokalemia Status: Acute (8) Agitation Status: Acute (9) Alcohol abuse Status: Acute (10) Drug abuse Status: Acute (11) Drug dependence Status: Acute (12) Opioid use disorder, severe, dependence Status: Acute (13) Status post fall Status: Acute (14) Substance abuse Status: Acute
== END 2017-11-04 13:59 | disposition home or self-care (01) | DRG 744 ==
LOC: C.ER 14:11 → C.9E 17:12 → C.6T 18:29
PROVIDERS: ADMIT Internal Medicine Nephrology; ATTEND Internal Medicine Nephrology
DX: F10.221 Alcohol dependence with intoxication delirium (principal); E86.0 Dehydration; F11.20 Opioid dependence, uncomplicated; T67.5XXA Heat exhaustion, unspecified, initial encounter; E87.6 Hypokalemia; F10.231 Alcohol dependence with withdrawal delirium; J43.9 Emphysema, unspecified; R64 Cachexia; Y90.8 Blood alcohol level of 240 mg/100 ml or more; G62.9 Polyneuropathy, unspecified; R63.4 Abnormal weight loss; I10 Essential (primary) hypertension; I73.9 Peripheral vascular disease, unspecified; M81.0 Age-related osteoporosis without current pathological fracture; G89.4 Chronic pain syndrome; F17.200 Nicotine dependence, unspecified, uncomplicated; X30.XXXA Exposure to excessive natural heat, initial encounter; Z59.0 Homelessness